=== PATIENT | female | born 1980 | race Hispanic/Latino ===

== ENCOUNTER 2019-01-30 13:03 | Inpatient (IN) | payer BC ==
[~2019-01-30] VITALS: Ht 152.4 cm; Wt 91.3 kg
--- OUTSIDE RECORDS SUMMARY | 2019-01-30 13:06 | XMS REPORT | Summary of Care ---
Author Author [facility] Organization [facility] Address Unknown Phone Unavailable Encounter HANNA Ugalde(ALISHA) [id number] Date(s): 09/13/18 - 09/13/18 [facility] [address] [place] [address]- Discharge Disposition: [facility] Left B4 Treatment Cmplt-MSE Cmplt Attending Physician: Rajesh Carbajal MD Vital Signs Most recent to 1 oldest [Reference Range]: Height 149.86 cm (09/13/18 9:37 PM) Temperature Oral 97.9 DegF [96.4-99.1 DegF] (09/13/18 9:37 PM) Blood Pressure 127/55 mmHg [90-140/60-90 mmHg] (09/13/18 9:37 PM) Respiratory Rate 14 BRMIN [14-20 BRMIN] (09/13/18 9:37 PM) Peripheral Pulse 79 bpm Rate [60-100 bpm] (09/13/18 9:37 PM) Weight 86.364 kg (09/13/18 9:37 PM) Body Mass Index 38.46 m2 (09/13/18 9:37 PM) Problem List Condition Effective Dates Status Health Status Informant Anxiety(Confirmed) Active Diabetes mellitus Active type 2(Confirmed) Allergies, Adverse Reactions, Alerts Substance Reaction Severity Status NKDA Active Medications No data available for this section Results No data available for this section Immunizations Given and Recorded Vaccine Date Status Refusal Reason diphtheria/pertussis, acel/tetanus adult 09/25/15 Given Procedures Procedure Date Related Diagnosis Body Site Status section Completed Social History Social History Type Response Alcohol Current, Type Beer. Frequency: 1-2 times per week. Previous treatment: None. Smoking Status Current some day smoker; Type: Cigarettes; Exposure to Tobacco Smoke None; Cigarette Smoking Last 365 Days Yes; Reg Smoking Cessation Counseling No; Tobacco use per day: 3; entered on: 07/17/16 Assessment and Plan No data available for this section
--- OUTSIDE RECORDS SUMMARY | 2019-01-30 13:06 | XMS REPORT | Summary of Care ---
Author Author [facility] Organization [facility] Address Unknown Phone Unavailable Encounter [facility] [employer](FIN) [id number] Date(s): 09/12/18 - 09/12/18 [facility] [address] [place] [address]- [phone] Discharge Disposition: Home or Self Care Attending Physician: Christie Urena MD Vital Signs No data available for this section Problem List Condition Effective Dates Status Health [...]
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
--- OUTSIDE RECORDS SUMMARY | 2019-01-30 13:07 | XMS REPORT | Summary of Care ---
Author Author [facility] Organization [facility] Address Unknown Phone Unavailable Encounter HANNA Ugalde(ALISHA) [id number] Date(s): 11/20/16 - 11/20/16 [facility] [address] [place] [address]- Discharge Disposition: Non-Emergent Attending Physician: Rajesh Carbajal MD Vital Signs Most recent to 1 oldest [Reference Range]: Temperature Oral 98.2 DegF [96.4-99.1 DegF] (11/20/16 4:47 PM) Blood Pressure 123/82 mmHg [90-140/60-90 mmHg] (11/20/16 4:47 PM) Respiratory Rate 18 BRMIN [14-20 BRMIN] (11/20/16 4:47 PM) Peripheral Pulse 98 bpm Rate [60-100 bpm] (11/20/16 4:47 PM) Problem List Condition Effective Dates Status Health Status Informant Anxiety(Confirmed) Active Diabetes mellitus Active type 2(Confirmed) Allergies, Adverse Reactions, Alerts Substance Reaction Severity Status NKDA Active Medications No data available for this section Results No data available for this section Immunizations Given and Recorded Vaccine Date Status Refusal Reason diphtheria/pertussis, acel/tetanus adult 09/25/15 Given Procedures Procedure Date Related Diagnosis Body Site section Social History Social History Type Response Alcohol Current, Type Beer. Frequency: 1-2 times per week. Previous treatment: None. Smoking Status Current some day smoker; Type: Cigarettes; Tobacco use per day: 3; Exposure to Tobacco Smoke None; Cigarette Smoking Last 365 Days Yes; Reg Smoking Cessation Counseling No Assessment and Plan No data available for this section
--- OUTSIDE RECORDS SUMMARY | 2019-01-30 13:07 | XMS REPORT | Summary of Care ---
Author Author [facility] Organization [facility] Address Unknown Phone Unavailable Encounter HANNA Ugalde(ALISHA) [id number] Date(s): 03/22/16 - 03/23/16 [facility] [address] [place] [address]- [phone] Discharge Diagnosis: Abdominal pain Discharge Diagnosis: Pneumonia Discharge Disposition: Home or Self Care Attending Physician: Yaz Sifuentes DO Vital Signs 1 2 3 Most recent to oldest [Reference Range]: 167.64 cm (03/22/16 9:32 PM) Height 98.5 DegF (03/23/16 2:00 AM) 98.7 DegF (03/22/16 9:32 PM) Temperature Oral [96.4-99.1 DegF] 135/86 mmHg (03/23/16 2:00 AM) 138/92 mmHg (03/22/16 9:32 PM) Blood Pressure [90-140/60-90 mmHg] 115 mmHg (03/22/16 10:25 PM) Systolic Blood Pressure [90-140 mmHg] 74 mmHg (03/22/16 10:25 PM) Diastolic Blood Pressure [60-90 mmHg] 18 BRMIN (03/23/16 2:00 AM) 19 BRMIN (03/22/16 10:25 PM) 20 BRMIN (03/22/16 9:32 PM) Respiratory Rate [14-20 BRMIN] 90 bpm (03/23/16 2:00 AM) 88 bpm (03/22/16 10:25 PM) 90 bpm (03/22/16 9:32 PM) Peripheral Pulse Rate [60-100 bpm] 88.636 kg (03/22/16 9:32 PM) Weight 31.54 m2 (03/22/16 9:32 PM) Body Mass Index Problem List Condition Effective Dates Status Health Status Informant Anxiety(Confirmed) Active Diabetes mellitus Active type 2(Confirmed) Allergies, Adverse Reactions, Alerts Substance Reaction Severity Status NKDA Active Medications azithromycin 500 mg, Route: PO, Drug form: TAB, ONCE, Dosing Weight 88.636, kg, Start date: 0 03/23/16 2:22:00 CDT, Stop date: 03/23/16 2:22:00 CDT Start Date: 03/23/16 Stop Date: 03/23/16 Status: Completed azithromycin 250 mg oral tablet 250 mg=1 tab, PO, Daily, X 4 day, # 4 tab, 0 Refill(s) Start Date: 03/23/16 Stop Date: 03/27/16 Status: Ordered famotidine 20 mg, Route: IVP, ONCE, Dosing Weight 88.636, kg, Priority: STAT, Start date: 0 03/22/16 22:19:00 CDT, Stop date: 03/22/16 22:19:00 CDT Start Date: 03/22/16 Stop Date: 03/22/16 Status: Completed GI cocktail 30 mL, Route: PO, Dosing Weight 88.636, kg, ONCE, STAT, Start date: 03/23/16 1:1 9:00 CDT, Stop date: 03/23/16 1:19:00 CDT Start Date: 03/23/16 Stop Date: 03/23/16 Status: Completed metoclopramide 10 mg, Route: IVP, Drug form: INJ, ONCE, Dosing Weight 88.636, kg, Priority: STA T, Start date: 03/22/16 22:49:00 CDT, Stop date: 03/22/16 22:49:00 CDT Start Date: 03/22/16 Stop Date: 03/22/16 Status: Completed ondansetron 4 mg, Route: IVP, Drug form: INJ, ONCE, Dosing Weight 88.636, kg, Priority: STAT , Start date: 03/22/16 22:19:00 CDT, Stop date: 03/22/16 22:19:00 CDT Start Date: 03/22/16 Stop Date: 03/22/16 Status: Completed Sodium Chloride 0.9% (Bolus) IV 1,000 mL, 2,000 ml/hr, Infuse Over: 30 minutes, Route: IV, ONCE, Priority: STAT, Dosing Weight 88.636 kg, Start date: 03/22/16 22:19:00 CDT, Duration: 1 doses or times, Stop date: 03/22/16 22:19:00 CDT Start Date: 03/22/16 Stop Date: 03/22/16 Status: Completed Zofran ODT 4 mg oral tablet, disintegrating 4 mg=1 tab, PO, TID, PRN as needed for nausea/vomiting, Dissolve tab under tongu e, X 2 day, # 6 tab, 0 Refill(s) Start Date: 03/23/16 Stop Date: 03/25/16 Status: Completed Results ELECTROLYTES Most recent to 1 oldest [Reference Range]: Sodium Lvl [135-145 132 mEq/L mEq/L] *LOW* (03/22/16 10:14 PM) Potassium Lvl 3.7 mEq/L [3.5-5.1 mEq/L] (03/22/16 10:14 PM) Chloride Lvl [95-109 97 mEq/L mEq/L] (03/22/16 10:14 PM) CO2 [24-32 mEq/L] 27 mEq/L (03/22/16 10:14 PM) AGAP [10.0-20.0 11.7 mEq/L mEq/L] (03/22/16 10:14 PM) CHEM PANEL Most recent to 1 oldest [Reference Range]: Creatinine Lvl 0.65 mg/dL [0.50-1.40 mg/dL] (03/22/16 10:14 PM) eGFR 116 mL/min/1.73m2 1 *NA* (03/22/16 10:14 PM) BUN [7-22 mg/dL] 14 mg/dL (03/22/16 10:14 PM) B/C Ratio [6-25] 22 (03/22/16 10:14 PM) Glucose Lvl [70-99 275 mg/dL mg/dL] *HI* (03/22/16 10:14 PM) Total Protein 8.4 g/dL [6.4-8.4 g/dL] (03/22/16 10:14 PM) Albumin Lvl [3.5-5.0 3.4 g/dL g/dL] *LOW* (03/22/16 10:14 PM) Globulin [2.7-4.2 5.0 g/dL g/dL] *HI* (03/22/16 10:14 PM) A/G Ratio [0.7-1.6] 0.7 (03/22/16 10:14 PM) Calcium Lvl 8.7 mg/dL [8.5-10.5 mg/dL] (03/22/16 10:14 PM) ALT [0-65 unit/L] 79 unit/L *HI* (03/22/16 10:14 PM) AST [0-37 unit/L] 80 unit/L *HI* (03/22/16 10:14 PM) Alk Phos [39-136 118 unit/L unit/L] (03/22/16 10:14 PM) Bili Total [0.2-1.3 0.9 mg/dL mg/dL] (03/22/16 10:14 PM) Lipase Lvl [73-393 185 unit/L unit/L] (03/22/16 10:14 PM) 1Result Comment: The eGFR is calculated using the [...] from the National Kidney Disease Education Program ( NKDEP) which additionally recommends that when the eGFR is used in patients with extremes of body mass index for purposes of drug dosing, the eGFR should be mul tiplied by the estimated BMI. URINE CHEM Most recent to 1 oldest [Reference Range]: U Preg [Negative] Negative (03/23/16 12:43 AM) URINE AND STOOL Most recent to 1 oldest [Reference Range]: UA Turbidity [Clear] Clear (03/23/16 12:43 AM) UA Color [Yellow] Yellow *NA* (03/23/16 12:43 AM) UA pH [5.0-8.0] 5.0 (03/23/16 12:43 AM) UA Spec Grav 1.030 [<=1.030] (03/23/16 12:43 AM) UA Glucose [Negative 500 mg/dL mg/dL] *ABN* (03/23/16 12:43 AM) UA Blood [Negative] Small *ABN* (03/23/16 12:43 AM) UA Ketones [Negative 20 mg/dL mg/dL] *ABN* (03/23/16 12:43 AM) UA Protein [Negative 100 mg/dL mg/dL] *ABN* (03/23/16 12:43 AM) UA Urobilinogen 2.0 mg/dL [0.1-1.0 mg/dL] *HI* (03/23/16 12:43 AM) UA Bili [Negative] Negative *NA* (03/23/16 12:43 AM) UA Leuk Est Negative [Negative] (03/23/16 12:43 AM) UA Nitrite Negative [Negative] (03/23/16 12:43 AM) UA WBC [0-5 /HPF] 2 /HPF (03/23/16 12:43 AM) UA RBC [0-2 /HPF] 6 /HPF *HI* (03/23/16 12:43 AM) UA Bacteria [None Occasional /HPF Seen /HPF] *NA* (03/23/16 12:43 AM) UA Sq Epi [Few /LPF] Few /LPF *NA* (03/23/16 12:43 AM) UA Mucus [None Seen Few /LPF /LPF] *NA* (03/23/16 12:43 AM) HEMATOLOGY Most recent to 1 oldest [Reference Range]: WBC [3.7-10.4 K/CMM] 6.2 K/CMM (03/22/16 10:14 PM) RBC [4.20-5.40 4.35 M/CMM M/CMM] (03/22/16 10:14 PM) Hgb [12.0-16.0 g/dL] 13.9 g/dL (03/22/16 10:14 PM) Hct [36.0-48.0 %] 40.3 % (03/22/16 10:14 PM) MCV [80.0-98.0 fL] 92.8 fL (03/22/16 10:14 PM) MCH [27.0-31.0 pg] 31.9 pg *HI* (03/22/16 10:14 PM) MCHC [32.0-36.0 34.4 g/dL g/dL] (03/22/16 10:14 PM) RDW [11.5-14.5 %] 12.9 % (03/22/16 10:14 PM) Platelet [133-450 160 K/CMM K/CMM] (03/22/16 10:14 PM) MPV [7.4-10.4 fL] 9.5 fL (03/22/16 10:14 PM) Segs [45.0-75.0 %] 55.4 % (03/22/16 10:14 PM) Lymphocytes 33.8 % [20.0-40.0 %] (03/22/16 10:14 PM) Monocytes [2.0-12.0 8.4 % %] (03/22/16 10:14 PM) Eosinophils [0.0-4.0 1.6 % %] (03/22/16 10:14 PM) Basophils [0.0-1.0 0.8 % %] (03/22/16 10:14 PM) Segs-Bands # 3.5 K/CMM [1.5-8.1 K/CMM] (03/22/16 10:14 PM) Lymphocytes # 2.1 K/CMM [1.0-5.5 K/CMM] (03/22/16 10:14 PM) Monocytes # [0.0-0.8 0.5 K/CMM K/CMM] (03/22/16 10:14 PM) Eosinophils # 0.1 K/CMM [0.0-0.5 K/CMM] (03/22/16 10:14 PM) Basophils # [0.0-0.2 0.1 K/CMM K/CMM] (03/22/16 10:14 PM) Immunizations Given and Recorded Vaccine Date Status [...]
--- OUTSIDE RECORDS SUMMARY | 2019-01-30 13:07 | XMS REPORT | Summary of Care ---
Author Author [facility] Organization [facility] Address Unknown Phone Unavailable Encounter HQ Aftab(ALISHA) [id number] Date(s): 09/25/15 - 09/25/15 [facility] [address] [place] [address]- [phone] Discharge Diagnosis: Contusion of other part of head, initial encounter Discharge Diagnosis: Unspecified injury of head, initial encounter Discharge Disposition: Home Attending Physician: Mateusz Saini DO Vital Signs 1 2 3 Most recent to oldest [Reference Range]: 149.86 cm (09/25/15 1:20 AM) Height 98.0 DegF (09/25/15 7:04 AM) 98.5 DegF (09/25/15 3:05 AM) 98.5 DegF (09/25/15 1:20 AM) Temperature Oral [96.4-99.1 DegF] 93/56 mmHg (09/25/15 7:04 AM) 99/58 mmHg (09/25/15 5:46 AM) 115/69 mmHg (09/25/15 3:05 AM) Blood Pressure [90-140/60-90 mmHg] 17 BRMIN (09/25/15 7:04 AM) 17 BRMIN (09/25/15 5:46 AM) 17 BRMIN (09/25/15 3:05 AM) Respiratory Rate [14-20 BRMIN] 81 bpm (09/25/15 7:04 AM) 91 bpm (09/25/15 5:46 AM) 97 bpm (09/25/15 3:05 AM) Peripheral Pulse Rate [60-100 bpm] 95.455 kg (09/25/15 1:20 AM) Weight 42.5 m2 (09/25/15 1:20 AM) Body Mass Index Problem List Condition Effective Dates Status Health Status Informant Anxiety(Confirmed) Active Diabetes mellitus Active type 2(Confirmed) Allergies, Adverse Reactions, Alerts Substance Reaction Severity Status NKDA Active Medications acetaminophen 650 mg, Route: PO, Drug form: TAB, ONCE, Dosing Weight 95.455, kg, Priority: STA T, Start date: 09/25/15 3:19:00, Stop date: 09/25/15 3:19:00 Start Date: 09/25/15 Stop Date: 09/25/15 Status: Completed diazepam 5 mg, Route: PO, ONCE, Dosing Weight 95.455, kg, Priority: STAT, Start date: 12/05 3:19:00, Stop date: 09/25/15 3:19:00 Start Date: 09/25/15 Stop Date: 09/25/15 Status: Completed Saline Flush 0.9% 10 mL, Route: IVP, Drug Form: INJ, Dosing Weight 95.455, kg, PRN, PRN Line Flush , Start date: 09/25/15 2:56:00, Duration: 30 day, Stop date: 10/25/15 3:55:00 Notes: (Same as: BD Posiflush) Start Date: 09/25/15 Stop Date: 09/25/15 Status: Discontinued tramadol 50 mg oral tablet 50 mg=1 tab, PO, Q6H, PRN Pain, X 3 day, # 12 tab, 0 Refill(s) Start Date: 09/25/15 Stop Date: 09/28/15 Status: Ordered Results No data available for this section Immunizations Vaccine Date Refusal Reason diphtheria/pertussis, acel/tetanus adult 09/25/15 Procedures Procedure Date Related Diagnosis Body Site [...]
--- OUTSIDE RECORDS SUMMARY | 2019-01-30 13:07 | XMS REPORT ---
Author Author Christie Urena [facility] eClinicalWorks Address Unknown Phone Unavailable Care Team Providers Care Complaint Clerk Name Role Phone Christie Urena CP Unavailable Allergies, Adverse Reactions, Alerts Substance Reaction Event Type N.K.D.A. Info Not Available Non Drug Allergy Problems Problem Type Condition Code Onset Dates Condition Status Assessment Anxiety F41.9 Active Assessment Uncontrolled type 2 diabetes mellitus without complication, without long-term current use of insulin E11.65 Active Problem Vitamin D deficiency E55.9 Active Problem Hyperlipidemia, unspecified hyperlipidemia type E78.5 Active Problem HTN (hypertension), benign I10 Active Problem Anxiety F41.9 Active Problem Uncontrolled type 2 diabetes mellitus without complication, without long- term current use of insulin E11.65 Active Problem Panic attacks F41.0 Active Medications Medication Code System Code Instructions Start Date End Date Status Dosage Jkrrn-2-zmox Ethyl Esters & D3 [facility] [address]-86 1 & 1000 GM & UNIT Orally BID Mar 06, 2018 December 01, 2018 Active as directed Tylenol ND 44847262243 325 MG Orally as needed (prn) Active 2 tablets Klonopin [facility] 08355646317 0.5 MG Orally twice a day (bid) as needed (prn) Feb 21, 2018 Active 1 tablet Venlafaxine HCl [facility] 83283272205 37.5 MG Orally Once a day Aug 15, 2018 Active 1 tablet at bedtime for 7 days; on day 8 take two tablets Levothyroxine Sodium ND 80179816121 50 MCG Orally Once a day Active 1 tablet on an empty stomach in the morning Pioglitazone HCl ND 18222976542 30 mg Orally Once a day Feb 27, 2018 Active 1 tablet Metformin HCl ND 48026352395 1000 MG Orally Twice a day Feb 21, 2018 Active 1 tablet with meals BusPIRone HCl ND 66294368996 7.5 MG Orally Twice a day Feb 21, 2018 Aug 15, 2018 Active 1 tablet Vital Signs Date/Time: Aug 15, 2018 BMI 35.21 Index Weight 188.8 lbs Height 61.4 in Temperature 97.1 F Cardiac Monitoring Heart Rate 89 /min Blood Pressure Diastolic 101 mm Hg Blood Pressure Systolic 143 mm Hg Results No Known Results Summary Purpose eClinicalWorks Submission
--- OUTSIDE RECORDS SUMMARY | 2019-01-30 13:07 | XMS REPORT | Summary of Care ---
Author Author [facility] Organization [facility] Address Unknown Phone Unavailable Encounter HANNA Ugalde(ALISHA) [id number] Date(s): 07/17/16 - 07/17/16 [facility] [address] [place] [address]- Discharge Diagnosis: Anxiety Discharge Disposition: Home or Self Care Attending Physician: Kranthi Sims MD Vital Signs Most recent to 1 2 oldest [Reference Range]: Height 149.86 cm (07/17/16 11:42 AM) Temperature Oral 98.0 DegF [96.4-99.1 DegF] (07/17/16 2:24 PM) Blood Pressure 138/62 mmHg 147/89 mmHg [90-140/60-90 mmHg] (07/17/16 2:24 PM) *HI* (07/17/16 11:42 AM) Respiratory Rate 18 BRMIN 22 BRMIN [14-20 BRMIN] (07/17/16 2:24 PM) *HI* (07/17/16 11:42 AM) Peripheral Pulse 84 bpm 86 bpm Rate [60-100 bpm] (07/17/16 2:24 PM) (07/17/16 11:42 AM) Weight 86.364 kg (07/17/16 11:42 AM) Body Mass Index 38.46 m2 (07/17/16 11:42 AM) Problem List Condition Effective Dates Status Health Status Informant Anxiety(Confirmed) Active Diabetes mellitus Active type 2(Confirmed) Allergies, Adverse Reactions, Alerts Substance Reaction Severity Status NKDA Active Medications Xanax 0.5 mg oral tablet 0.5 mg, Route: PO, Drug form: TAB, ONCE, Dosing Weight 86.364, kg, Priority: STA T, Start date: 07/17/16 13:35:00 ADMITTED ATTORNEYS, Stop date: 07/17/16 13:35:00 ADMITTED ATTORNEYS Start Date: 07/17/16 Stop Date: 07/17/16 Status: Completed Results No data available for this section [...]
--- OUTSIDE RECORDS SUMMARY | 2019-01-30 13:08 | XMS REPORT ---
Author Author Christie Urena Organization [employer] Address Unknown Phone Unavailable Care Team Providers Care Batch Freezer Operator Name Role Phone Christie Urena CP Unavailable Allergies No Known Allergies Problems Problem Type Condition Code Onset Dates Condition Status Problem Panic attacks F41.0 Active Problem Uncontrolled type 2 diabetes mellitus without complication, without long- term current use of insulin E11.65 Active Problem Anxiety F41.9 Active Assessment Uncontrolled type 2 diabetes mellitus without complication, without long-term current use of insulin E11.65 Active Medications Medication Code System Code Instructions Start Date End Date Status Dosage Levothyroxine Sodium [facility] 45321947537 50 MCG Orally Once a day Feb 27, 2018 Active 1 tablet on an empty stomach in the morning Pioglitazone HCl [facility] 33334468277 30 mg Orally Once a day Feb 27, 2018 Active 1 tablet Metformin HCl [facility] 01584464707 1000 MG Orally Twice a day Feb 21, 2018 Active 1 tablet with meals Ergocalciferol [facility] 04937915400 [address] UNIT Orally once a week Feb 27, 2018 May 28, 2018 Active 1 capsule Results No Known Results Summary Purpose eClinicalWorks Submission
--- OUTSIDE RECORDS SUMMARY | 2019-01-30 13:08 | XMS REPORT ---
Author Author Christie Urena [facility] e[employer] Address Unknown Phone Unavailable Care Team Providers Care Voice Over Artist Name Role Phone Christie Urena CP Unavailable Allergies, Adverse Reactions, Alerts Substance Reaction Event Type Lisinopril vomiting Drug Allergy Problems Problem Type Condition Code Onset Dates Condition Status Assessment Uncontrolled type 2 diabetes mellitus without complication, without long-term current use of insulin E11.65 Active Assessment HTN (hypertension), benign I10 Active Assessment Hyperlipidemia, unspecified hyperlipidemia type E78.5 Active Problem Vitamin D deficiency E55.9 Active Problem Hyperlipidemia, unspecified hyperlipidemia type E78.5 Active Problem HTN (hypertension), benign I10 Active Problem Anxiety F41.9 Active Problem Uncontrolled type 2 diabetes mellitus without complication, without long- term current use of insulin E11.65 Active Problem Panic attacks F41.0 Active Medications Medication Code System Code Instructions Start Date End Date Status Dosage Felha-5-yhlp Ethyl Esters & D3 [facility] [address]-10 1 & 1000 GM & UNIT Orally BID Mar 06, 2018 December 01, 2018 Active as directed Tylenol ND 84306802548 325 MG Orally as needed (prn) Active 2 tablets Pioglitazone HCl ND 98845717615 45 MG Orally Once a day Sep 12, 2018 Active 1 tablet Klonopin ND 69259531352 0.5 MG Orally twice a day (bid) as needed (prn) Feb 21, [address] [facility] 58411702746 25 MG Orally Once a day September 25, 2018 November 24, 2018 Active 1 tablet Losartan Potassium ND 75665914933 25 MG Orally Once a day September 25, 2018 Active 1 tablet Levothyroxine Sodium ND 36074504056 50 MCG Orally Once a day Active 1 tablet on an empty stomach in the morning Venlafaxine HCl [facility] 12788665287 37.5 MG Orally Once a day Aug 15, 2018 Active 1 tablet at bedtime for 7 days; on day 8 take two tablets Metformin HCl ND 45049855266 1000 MG Orally Twice a day Feb 21, 2018 September 20, 2018 Active 1 tablet with meals Lisinopril [facility] 60542635758 10 mg Orally Once a day Sep 12, 2018 September 23, 2018 Active 1 tablet Vital Signs Date/Time: September 25, 2018 BMI 35.24 Index Weight 189.0 lbs Height 61.4 in Temperature 97.1 F Cardiac Monitoring Heart Rate 84 /min Blood Pressure Diastolic 94 mm Hg Blood Pressure Systolic 138 mm Hg Results No Known Results Summary Purpose eClinicalWorks Submission
--- OUTSIDE RECORDS SUMMARY | 2019-01-30 13:08 | XMS REPORT ---
Author Author Christie Urena Organization [employer] Address Unknown Phone Unavailable Care Team Providers Care Atmospheric Chemist Name Role Phone Christie Urena Unavailable Allergies No Known Allergies Problems Problem Type Condition Code Onset Dates Condition Status Problem Vitamin D deficiency E55.9 Active Problem Hyperlipidemia, unspecified hyperlipidemia type E78.5 Active Problem HTN (hypertension), benign I10 Active Problem Anxiety F41.9 Active Problem Uncontrolled type 2 diabetes mellitus without complication, without long- term current use of insulin E11.65 Active Problem Panic attacks F41.0 Active Medications Medication Code System Code Instructions Start Date End Date Status Dosage Clonazepam [facility] 71686572119 0.5 MG Orally twice a day (bid) November 04, 2018 Active 1 tablet Clonazepam [facility] 93677633314 0.5 by mouth twice a day (bid) Active TAKE 1 TABLET BY MOUTH TWICE DAILY NEEDED Results No Known Results Summary Purpose eClinicalWorks Submission
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
[2019-01-30 14:32] LABS: BILIRUBIN,URINE NEGATIVE (NEGATIVE); CLARITY,URINE CLOUDY (CLEAR); KETONES,URINE NEGATIVE (NEGATIVE); LEUKOCYTE ESTERASE ,URINE NEGATIVE (NEGATIVE); NITRITE,URINE NEGATIVE (NEGATIVE); PROTEIN,URINE DIPSTICK 2+ (NEGATIVE); URINE UROBILINOGEN 1 mg/dL (0.2 - 1)
[2019-01-30 14:33] LABS: COLOR,URINE STRAW (YELLOW)
[2019-01-30 14:40] LABS: BASOPHILS % 0.3 % (0.0-1.0); EOSINOPHILS # (AUTO) 0.1 (0.0-0.4); EOSINOPHILS % 1.5 % (0.0-6.0); HEMATOCRIT 26.2 % (34.2-44.1); HEMOGLOBIN 9.4 g/dL (12.0-16.0); LYMPHOCYTES # (AUTO) 1.2 (1.0-3.2); LYMPHOCYTES % 34.7 % (18.0-39.1); MEAN CORPUSCULAR HEMOGLOBIN 34.3 pg (28-32); MEAN CORPUSCULAR HGB CONC 35.9 g/dL (31-35); MEAN CORPUSCULAR VOLUME 95.6 fL (81-99); MONOCYTES # (AUTO) 0.3 (0.2-0.8); MONOCYTES % 7.9 % (4.4-11.3); NEUTROPHILS # (AUTO) 1.8 (2.1-6.9); NEUTROPHILS % 55.3 % (38.7-80.0); PLATELET COUNT 118 x10e3/uL (140-360); RED BLOOD COUNT 2.74 x10e6/uL (3.6-5.1)
[2019-01-30 14:42] LABS: INR 0.97; PROTHROMBIN TIME 13.4 seconds (11.9-14.5)
[2019-01-30 14:43] LABS: PARTIAL THROMBOPLASTIN TIME 30.6 seconds (23.8-35.5)
[2019-01-30 14:44] LABS: BACTERIA,URINE MANY /HPF; WBC,URINE (MAN) 0-5 /HPF (0-5)
[2019-01-30 14:53] LABS: ALANINE AMINOTRANSFERASE 51 IU/L (0-55); ALBUMIN 1.9 g/dL (3.5-5.0); ALBUMIN/GLOBULIN RATIO 0.5 (0.8-2.0); ALKALINE PHOSPHATASE 157 IU/L (40-150); ANION GAP 13.4 mmol/L (8-16); BLOOD UREA NITROGEN 9 mg/dL (7-26); BUN/CREATININE RATIO 10 (6-25); CALCIUM 8.4 mg/dL (8.4-10.2); CARBON DIOXIDE 26 mmol/L (22-29); CHLORIDE 100 mmol/L (98-107); CREATINE KINASE 1030 IU/L (29-168); CREATININE, SERUM 0.86 mg/dL (0.57-1.11); EST GLOMERULAR FILTRATION RATE > 60 ML/MIN (60-); GLUCOSE 335 mg/dL (74-118); MAGNESIUM 1.4 MG/DL (1.3-2.1); POTASSIUM 3.4 mmol/L (3.5-5.1); SODIUM 136 mmol/L (136-145)
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
[2019-01-30] MEDS ORDERED: SODIUM CHLORIDE 0.9% 1000ML 1,000 ML IV SCH (16:15)
[2019-01-30] MEDS ORDERED: DEXTROSE 50% SYRINGE 50 ML IV PRN (17:30)
[2019-01-30 17:34] LABS: AMPHETAMINES SCREEN,URINE NEGATIVE (NEGATIVE); BENZODIAZEPINES SCREEN,URINE NEGATIVE (NEGATIVE); PHENCYCLIDINE SCREEN,URINE NEGATIVE (NEGATIVE)
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
[2019-01-30] MEDS ORDERED: ONDANSETRON HCL INJ 2MG/ML 2ML 2 MG/ML VIAL IV PRN (21:00)
[2019-01-30] MEDS: CEFTRIAXONE SOD 1 GM/NS 50 ML 50 ML IV SCH (22:26)
[2019-01-30] MEDS: SODIUM CHLORIDE 0.9% 1000ML 1,000 ML IV SCH (22:28)
--- NOTE | 2019-01-30 22:40 | NUR ---
SPOKE WITH DR. MIMS CONCERNING ELEVATED GLUCOSE OF 389, RECEVIED ORDERS FOR LANTUS 10 UNITS SQ QHS AND TO GIVE 12 UNITS OF LISPRO SQ NOW AT THIS TIME.
[2019-01-30] MEDS: INSULIN GLARGINE 100 UNITS/ML VIAL SQ SCH (23:00)
[2019-01-30] MEDS: INSULIN LISPRO 100 UNIT/1 ML 3ML VIAL SQ SCH (23:00)
--- NOTE | 2019-01-30 23:00 | NUR ---
Received report from ER nurse. Patient arrived to floor via stretcher.
[2019-01-30 23:30] VITALS: BP 93/52
[2019-01-31] VITALS (8 sets, daily range): BP systolic 102–161; BP diastolic 54–95
--- NOTE | 2019-01-31 01:00 | NUR ---
Patient c/o leg and foot pain. Given meds as ordered by MD. Will assess pain management and f/u on pain relief.
--- NOTE | 2019-01-31 02:30 | NUR ---
Patient resting quitly with no c/o at this time. Continue monitor.
[2019-01-31] MEDS ORDERED: LEVOTHYROXINE50 MCG PO (03:53)
[2019-01-31] MEDS ORDERED: METFORMIN HCL1000 MG PO (03:53)
[2019-01-31] MEDS ORDERED: PIOGLITAZONE HC45 MG PO (03:53)
[2019-01-31] MEDS ORDERED: LOSARTAN POTASS25 MG PO (03:53)
[2019-01-31] MEDS ORDERED: CLONAZEPAM0.5 MG PO (03:53)
[2019-01-31] MEDS ORDERED: BUSPIRONE HCL7.5 MG PO (03:53)
[2019-01-31] MEDS ORDERED: LISINOPRIL10 MG PO (03:53)
[2019-01-31] MEDS ORDERED: VENLAFAXINE H37.5 MG PO (03:53)
[2019-01-31] MEDS: ACETAMINOPHEN 325 MG TAB PO PRN ×2 (05:19→21:49)
--- NOTE | 2019-01-31 06:48 | NUR ---
Spouse at bedside. Patient resting quitly.
[2019-01-31 07:10] LABS: BASOPHILS % 0.6 % (0.0-1.0); EOSINOPHILS # (AUTO) 0.1 (0.0-0.4); EOSINOPHILS % 2.2 % (0.0-6.0); HEMOGLOBIN 9.1 g/dL (12.0-16.0); MEAN CORPUSCULAR HEMOGLOBIN 34.2 pg (28-32); MEAN CORPUSCULAR VOLUME 97.7 fL (81-99); MONOCYTES # (AUTO) 0.3 (0.2-0.8); MONOCYTES % 9.8 % (4.4-11.3); NEUTROPHILS # (AUTO) 1.8 (2.1-6.9); NEUTROPHILS % 56.8 % (38.7-80.0); PLATELET COUNT 116 x10e3/uL (140-360); RED BLOOD COUNT 2.66 x10e6/uL (3.6-5.1); RED CELL DISTRIBUTION WIDTH 13.2 % (11.7-14.4)
[2019-01-31 07:13] LABS: ALANINE AMINOTRANSFERASE 46 IU/L (0-55); ALBUMIN 1.7 g/dL (3.5-5.0); ALBUMIN/GLOBULIN RATIO 0.5 (0.8-2.0); ALKALINE PHOSPHATASE 141 IU/L (40-150); ANION GAP 9.5 mmol/L (8-16); BLOOD UREA NITROGEN 11 mg/dL (7-26); BUN/CREATININE RATIO 14 (6-25); CALCIUM 7.7 mg/dL (8.4-10.2); CARBON DIOXIDE 27 mmol/L (22-29); CHLORIDE 106 mmol/L (98-107); CREATININE, SERUM 0.79 mg/dL (0.57-1.11); EST GLOMERULAR FILTRATION RATE > 60 ML/MIN (60-); GLUCOSE 301 mg/dL (74-118); POTASSIUM 3.5 mmol/L (3.5-5.1); SODIUM 139 mmol/L (136-145)
--- NOTE | 2019-01-31 07:21 | NUR ---
PATIENT IN BED RESTING WITH NO S/S OF DISTRESS. IV FLUID INFUSING ORDERED. ABDOMEN SOFT AND LARGE WITH SOME BRUISES, EDEMA TO LOWER EXTREMITIES. BED IN LOWER POSITION, CALL LIGHT AT REACH.
[2019-01-31] MEDS: INSULIN LISPRO 100 UNIT/1 ML 3ML VIAL SQ SCH ×4 (07:30→21:41)
[2019-01-31] MEDS: SODIUM CHLORIDE 0.9% 1000ML 1,000 ML IV SCH (08:48)
--- NOTE | 2019-01-31 11:35 | NUR ---
PATIENT AMBULATED TO THE RESTROOM AND BACK TO BED. REQUESTED AND RECEIVED AN EXTRA PILLOW. IN BED WITH CALL LIGHT AT REACH.
--- NOTE | 2019-01-31 15:48 | NUR ---
PATIENT IN BED RESTING WITH EYES CLOSED, NO DISTRESS NOTED. CALL LIGHT AT REACH.
[2019-01-31] MEDS: CEFTRIAXONE SOD 1 GM/NS 50 ML 50 ML IV SCH (21:36)
[2019-01-31] MEDS: FUROSEMIDE INJ 10 MG/ML 4 ML VIAL IV SCH (21:36)
[2019-01-31] MEDS: INSULIN GLARGINE 100 UNITS/ML VIAL SQ SCH (21:37)
--- NOTE | 2019-01-31 23:05 | NUR ---
Patient stated she don't want anybody to come to her room until during waking hours. She refused bed alarm and states she goes to the bathroom often at night.
--- NOTE | 2019-02-01 00:56 | History and Physical ---
CHIEF COMPLAINT: Anasarca. HISTORY OF PRESENT ILLNESS: This is a 38-year-old female, morbidly obese with history of polysubstance abuse, chronic alcohol abuse, history of hypothyroidism, hypertension, type 2 diabetes, comes into the ED with complaints of anasarca and worsening abdominal distention ongoing for the last one week. The patient is a very poor historian when I discussed this case with her. She does report that she has been having worsening anasarca and lower extremity edema including abdominal distention over the last one week. Denies any recent sickness, cough, congestion, or any fever. Denies any shortness of breath, chest pain, palpitation, nausea, or vomiting. She also endorses having some petechiae, rash, and bruising. That has been ongoing for the last one week as well. She does report that she does do cocaine, of note her last snort was yesterday prior to coming to the hospital. She also endorses she drinks alcohol liquor 3 to 4 times per week. She was found to be pancytopenic positive for rhabdomyolysis as well. The patient was seen and evaluated at bedside on the medical floor. She is currently doing well with no other issues at this time. REVIEW OF SYSTEMS: Pertinent positive: Bruising, anasarca, abdominal distention, and GERD. Pertinent negatives: Denies any chest pain, palpitation, nausea, vomiting, diarrhea, dysuria, hematuria, frequency, urgency, lightheadedness, dizziness, abdominal pain, headaches, shortness of breath, cough, congestion, fever, or any other complaints. The rest of the 14-point review of systems have been reviewed with the patient and are negative. ALLERGIES: NO KNOWN DRUG ALLERGIES. HOME MEDICATIONS: Lisinopril 10 mg daily, losartan 25 mg daily, Actos 45 mg daily, buspirone 7.5 mg p.o. b.i.d., venlafaxine 37.5 mg p.o. daily, levothyroxine 50 mcg daily, and Ativan 0.5 mg p.o. b.i.d. p.r.n. for agitation. PAST MEDICAL HISTORY: Depression, hypertension, hypothyroidism, chronic alcohol abuse, and drug abuse. PAST SURGICAL HISTORY: Reports none. FAMILY HISTORY: Hypertension and diabetes. SOCIAL HISTORY: Positive for cocaine, uses cocaine frequently. Positive for alcohol. Smoker. PHYSICAL EXAMINATION: VITAL SIGNS: Temperature is 96.7, pulse 76, respiratory rate is 18, blood pressure is 133/83, and pulse ox 98% on room air. GENERAL: Not in acute distress. Alert and oriented x3. Cooperative on examination. Has abdominal distention. Has lower extremity edema with anasarca. HEENT: Head is normocephalic and atraumatic. Eyes; pupils are equal, round, and reactive to light bilaterally. Extraocular movements intact bilaterally. Throat, no evidence of erythema or exudates in the posterior pharynx. Has poor dentition. NECK: Supple. Good range of motion. PULMONARY: Clear to auscultation bilaterally. No wheezing, rales, or rhonchi. No crackles appreciated. CARDIOVASCULAR: Positive S1, S2. No murmurs, rubs, or gallops appreciated. ABDOMEN: Soft, nondistended, and nontender to palpation. Bowel sounds present. MUSCULOSKELETAL: Strength is 5/5 throughout. No evidence of any muscle deficits on examination. No weakness appreciated. NEUROLOGICAL: Cranial nerves II through XII grossly intact. No evidence of neurological deficits on exam. SKIN: Intact. Warm to touch. Good cap refill. PSYCHIATRIC: Normal affect and mood. EXTREMITIES: No edema. Good range of motion throughout. LAB FINDINGS: Show white count of 3.1, hemoglobin 9.1, hematocrit is 26, and platelets of 160. Coagulation; PT 13, INR 0.97, PTT 30. Chemistry; sodium 139, potassium 3.5, chloride 106, bicarb 27, anion gap 9.5, BUN is 11, creatinine 0.79, glucose is 301, the last 1-hour 229, calcium 7.7, magnesium 1.4, total protein is 0.5, AST 111, ALT 46, total bilirubin is 0.5, alkaline phosphatase 141, ammonia level was 133. CK was 543. BNP was 44. Troponins were negative. Albumin was 1.7. Urinalysis shows cloudy urine, 2+ protein, 2+ glucose, 11-20 RBCs, many urinary bacteria. Urine drug screen positive for cocaine. MICROBIOLOGY: Urine culture positive for gram-negative rods and enterococcus. IMAGING STUDIES: Chest x-ray shows no acute cardiopulmonary abnormality. IMPRESSION: 1. Anasarca with underlying abdominal ascites with positive proteinuria. 2. Suspect liver cirrhosis due to alcohol abuse. 3. Type 2 diabetes. 4. Hypertension. 5. Hypothyroidism. 6. Rhabdomyolysis secondary to cocaine abuse, positive urine drug screen. 7. Pancytopenia. 8. Type 2 diabetes. 9. Polysubstance abuse. PLAN: We will go ahead and get a urine protein to creatinine ratio, microalbumin to creatinine ratio. I suspect there is more involvement in relation to the proteinuria leading to the anasarca and ascites. We will also get a GI consultation as well. Start on IV Lasix for the underlying abdominal distention and ascites. In relation to her type 2 diabetes, we will continue with insulin sliding scale, long-acting insulin, A1c will be ordered as well. Her blood pressure is stable, we will continue with same medications to monitor closely. We will also get a TSH level. Continue with levothyroxine. Her CK did improve this was all secondary to cocaine abuse. We will get a.m. CK level. Her pancytopenia seems to be from alcohol abuse, likely from liver cirrhosis if indicated, but we will go ahead and get a Hematology consultation. She does have petechiae for a while. Once again, I think that is from the thrombocytopenia as well as the cocaine leading to some possible vasculitis. We will go ahead and get a UA as well. In relation to her alcohol and drug abuse, I had a long discussion with her about cessation and she verbalized that she will try the best to quit. We will go ahead and put Lovenox for DVT prophylaxis. Otherwise, we will continue same plan of care. Consult with all the consultants to follow closely. MD BARBARA Vigil/ADDY /[id number]
[2019-02-01 05:04] VITALS: BP 92/51
[2019-02-01] MEDS: CLONAZEPAM 0.5 MG TAB PO PRN ×2 (05:08→10:58)
--- NOTE | 2019-02-01 05:09 | NUR ---
bp rechecked 150/94 mmhg, SC 79 b/min.
[2019-02-01] MEDS ORDERED: LEVOTHYROXINE SODIUM 50 MCG TAB PO SCH (06:00)
--- NOTE | 2019-02-01 07:00 | NUR ---
RCD PT AT BED PT IS ALERT AND ORIENTED PT RESTING ON BED NO SIGNS OF ANY DISTRESS NOTED IV PATENT FAMILY AT BED SIDE BED LOW AND LOCKED CALL LIGHT IN REACH
[2019-02-01 07:20] VITALS: BP 129/80
[2019-02-01] MEDS: INSULIN LISPRO 100 UNIT/1 ML 3ML VIAL SQ SCH ×3 (07:30→15:47)
[2019-02-01 07:39] LABS: BASOPHILS % 0.8 % (0.0-1.0); EOSINOPHILS # (AUTO) 0.1 (0.0-0.4); EOSINOPHILS % 1.6 % (0.0-6.0); HEMATOCRIT 27.3 % (34.2-44.1); HEMOGLOBIN 9.5 g/dL (12.0-16.0); LYMPHOCYTES # (AUTO) 1.1 (1.0-3.2); LYMPHOCYTES % 30.6 % (18.0-39.1); MEAN CORPUSCULAR HEMOGLOBIN 34.5 pg (28-32); MEAN CORPUSCULAR HGB CONC 34.8 g/dL (31-35); MEAN CORPUSCULAR VOLUME 99.3 fL (81-99); MONOCYTES # (AUTO) 0.3 (0.2-0.8); MONOCYTES % 7.7 % (4.4-11.3); NEUTROPHILS # (AUTO) 2.2 (2.1-6.9); NEUTROPHILS % 58.8 % (38.7-80.0); PLATELET COUNT 118 x10e3/uL (140-360); RED BLOOD COUNT 2.75 x10e6/uL (3.6-5.1); RED CELL DISTRIBUTION WIDTH 13.3 % (11.7-14.4)
[2019-02-01 07:54] LABS: ALANINE AMINOTRANSFERASE 51 IU/L (0-55); ALBUMIN 1.7 g/dL (3.5-5.0); ALBUMIN/GLOBULIN RATIO 0.5 (0.8-2.0); ALKALINE PHOSPHATASE 135 IU/L (40-150); ANION GAP 8.5 mmol/L (8-16); BLOOD UREA NITROGEN 13 mg/dL (7-26); BUN/CREATININE RATIO 16 (6-25); CALCIUM 7.4 mg/dL (8.4-10.2); CARBON DIOXIDE 27 mmol/L (22-29); CHLORIDE 105 mmol/L (98-107); CREATINE KINASE 288 IU/L (29-168); CREATININE, SERUM 0.79 mg/dL (0.57-1.11); EST GLOMERULAR FILTRATION RATE > 60 ML/MIN (60-); GLUCOSE 317 mg/dL (74-118); POTASSIUM 3.5 mmol/L (3.5-5.1); SODIUM 137 mmol/L (136-145)
[2019-02-01 07:57] LABS: MAGNESIUM 1.1 MG/DL (1.3-2.1)
--- NOTE | 2019-02-01 08:00 | NUR ---
PAGED DR MIMS AND NOTIFIED THE MAGNESIUM LEVEL
[2019-02-01 08:14] LABS: THYROID STIMULATING HORMONE 4.439 uIU/mL (0.350-4.940)
[2019-02-01 08:21] LABS: FERRITIN 70.38 ng/mL (4.63-204.00)
[2019-02-01] MEDS ORDERED: VENLAFAXINE HCL 37.5 MG TAB PO SCH (09:00)
[2019-02-01] MEDS ORDERED: PIOGLITAZONE HCL 45 MG TAB PO SCH (09:00)
[2019-02-01] MEDS ORDERED: NON-FORMULARY MEDICATION (Buspirone Hcl 7.5 MG) PO SCH (09:00)
[2019-02-01] MEDS: FUROSEMIDE INJ 10 MG/ML 4 ML VIAL IV SCH (09:00)
[2019-02-01] MEDS ORDERED: LOSARTAN POTASSIUM 25 MG TAB PO SCH (09:00)
[2019-02-01] MEDS ORDERED: LISINOPRIL 10 MG TAB PO SCH (09:00)
[2019-02-01] MEDS: ACETAMINOPHEN 325 MG TAB PO PRN (09:00)
[2019-02-01] MEDS: BUSPIRONE HCL 5 MG TAB PO SCH ×2 (09:00→16:44)
[2019-02-01] MEDS ORDERED: VENLAFAXINE HCL 37.5 MG PO SCH (09:00)
[2019-02-01 10:07] VITALS: BP 129/80
[2019-02-01 11:13] VITALS: BP 136/96
[2019-02-01 15:38] VITALS: BP 108/68
[2019-02-01] MEDS ORDERED: MAGNESIUM SULFATE 2GM/50ML 50 ML IV ONE (15:45)
[2019-02-01 15:51] LABS: BILIRUBIN,URINE NEGATIVE (NEGATIVE); CLARITY,URINE SL CLOUDY (CLEAR); COLOR,URINE YELLOW (YELLOW); KETONES,URINE NEGATIVE (NEGATIVE); LEUKOCYTE ESTERASE ,URINE NEGATIVE (NEGATIVE); NITRITE,URINE NEGATIVE (NEGATIVE); URINE UROBILINOGEN 0.2 mg/dL (0.2 - 1)
[2019-02-01 15:53] LABS: PROTEIN,URINE DIPSTICK 3+ (NEGATIVE)
[2019-02-01 16:03] LABS: BACTERIA,URINE FEW /HPF; EPITHELIAL CELLS,URINE FEW /LPF; WBC,URINE (MAN) 0-5 /HPF (0-5)
[2019-02-01 16:05] LABS: MUCUS,URINE FEW (RARE)
[2019-02-01 16:18] LABS: CREATININE,URINE RANDOM 135.63 mg/dL (47-110)
[2019-02-01 16:48] LABS: TOTAL PROTEIN, URINE 223.7 mg/dL (1-14)
[2019-02-01] MEDS ORDERED: ENOXAPARIN 30 MG/0.3 ML SYR SC SCH (17:00)
--- NOTE | 2019-02-01 17:24 | Progress Note ---
DATE: 02/01/2019 Medicine Progress Note SUBJECTIVE: The patient reports that she has been feeling weak today and tired. Her labs that are ordered have been still pending for today. No overnight events. PHYSICAL EXAMINATION: VITAL SIGNS: Temperature is 97.9, pulse 87, respiratory rate is 18, blood pressure is 136/96, and pulse ox 97% on room air. GENERAL: Not in acute distress. Alert and oriented x3. Cooperative on examination. HEENT: Head is normocephalic, atraumatic. Eyes; pupils are equal, round, and reactive to light bilaterally. Extraocular movements are intact bilaterally. NECK: Supple. Good range of motion throughout. No evidence of erythema or exudates in the posterior pharynx. Has poor dentition. PULMONARY: Clear to auscultation bilaterally. No wheezing, rales, or rhonchi. No crackles appreciated. CARDIOVASCULAR: Positive S1, S2. No murmurs, rubs, or gallops appreciated. ABDOMEN: Soft, nondistended, and nontender to palpation. Bowel sounds present. MUSCULOSKELETAL: Strength is 5/5 throughout. No evidence of any muscle deficits on examination. No weakness appreciated. NEUROLOGIC: Cranial nerves II through XII grossly intact. No evidence of any neurological deficits on exam. SKIN: Intact. Warm to touch. Good cap refill. PSYCHIATRIC: Normal affect and mood. EXTREMITIES: She has trace pedal edema in the ankle region bilaterally. LABORATORY FINDINGS: White count 3.6, hemoglobin 9.5, hematocrit is 27, and platelets of 118. ESR 75, reticulocyte percentage 4.7. Coagulation; PT 13, INR 0.97, and PTT 30. Chemistry; sodium was 137, potassium 3.5, chloride 105, bicarbonate 27, anion gap of 8.5, BUN was 13, creatinine was 0.79, and glucose was 317. Hemoglobin A1c 7.4, iron saturation 38%, and ferritin 70. Total bilirubin is 0.5, AST 115, ALT 51, and alkaline phosphatase 135. Ammonia level was 133. CK 288, albumin 1.7. Folate level pending. Vitamin B12 of 605. Microbiology shows urine culture positive for E coli and Enterococcus faecalis. IMPRESSION: 1. Anasarca, multifactorial with underlying abdominal ascites with positive proteinuria. 2. Suspected liver cirrhosis due to alcohol abuse. 3. Type 2 diabetes. 4. Hypertension. 5. Hypothyroidism. 6. Rhabdomyolysis secondary to cocaine abuse with positive urine drug screen. 7. Pancytopenia. 8. Polysubstance abuse. PLAN: At this time, continue with IV Lasix twice daily. Abdominal ultrasound is pending and will likely occur on Sunday. I discussed this with the patient. The urine [id number], [id number] were not collected. Discussed with nurse to collect today. If the patient has nephrotic range proteinuria, it will be very difficult for me to state that this is likely due to diabetes, though she is on control. She will likely need a renal biopsy to further assess this. I did mention this to her at bedside today and she seems to be okay at this time, but I will go ahead and await for the UPC and [id number] ratio to come in 1st performing my final assessment. In relation to her liver cirrhosis, ultrasound is pending and if she has evidence of ascites, I will go ahead and do a paracentesis. GI was involved as well. We will go ahead and get an ammonia level for the morning. Her hypertension was controlled. Her diabetes, this morning glucose was 149. We will continue with Lantus and premeal insulin. In relation to her rhabdomyolysis, CK is improving. We will get a.m. CK level. In relation to her pancytopenia, she is at baseline. Awaiting waiting for abdominal ultrasound, the evidence of cirrhosis which could affect the bone marrow as well. In relation to her polysubstance abuse, I discussed this with her again about quitting. Her mother was in the room today, but we had told the mother to step out and the patient wanted to be in private to discuss her home matter and care. At this time, we will get a.m. labs. Monitor closely. Right now, she is currently doing well and very stable. We will continue same plan of care. Get a.m. labs. The consultants are GI and Hematology. MD BARBARA Vigil/ADDY /[id number]
--- NOTE | 2019-02-01 19:00 | NUR ---
Received patient from day nurse, patient is alert and oriented, safety and fall precautions maintained as per hospital protocol: bed in lowest position and locked, needed items at bed side and call johnston placed close to patient, bed alarm on patient, patient encouraged to use the call light at all times for help, verbalized understanding. patient is currently stable will continue to monitor. patient has numerous family member is at the bed side.
--- NOTE | 2019-02-01 19:25 | NUR ---
PT RESTING ON BED BED SIDE REPORT GIVEN TO ONCOMING NURSE
[2019-02-01 19:58] LABS: FOLATE 9.7 ng/mL (7.0-15.4)
[2019-02-01 20:21] VITALS: BP 115/68
--- NOTE | 2019-02-01 20:46 | Consultation ---
DATE OF CONSULTATION: 01/31/2019 REQUESTING PHYSICIAN: Jennifer Kapadia MD. CONSULTING PHYSICIAN: Blade Adamson MD, Hematology-Oncology Service. REASON FOR CONSULTATION: Evaluation and management of the patient with pancytopenia. HISTORY OF PRESENTING ILLNESS: Ms. Torres is a 38-year-old young female with multiple medical problems including known history of depression, hypertension, hypothyroidism, chronic alcohol use and drug abuse, who presented to the emergency department due to abdominal distention and pain, which has been going on for one week. In the ED, she was noted to have pancytopenia. The patient was also positive for urine cocaine screen. She was admitted inpatient for further evaluation. Hematology-Oncology has been consulted to assist with the management. Presently, the patient is lying comfortably, not in any acute distress, however, drowsy and confused. She has been started on IV fluids for rhabdomyolysis. PAST MEDICAL HISTORY: 1. Hypertension. 2. Hyperlipidemia. 3. Obesity. 4. Diabetes mellitus. 5. Chronic alcohol use. 6. Hypothyroidism. 7. Depression. PAST SURGICAL HISTORY: None. FAMILY HISTORY: Positive for diabetes and hypertension. SOCIAL HISTORY: The patient uses illicit drugs especially cocaine and urine is positive for cocaine, positive for alcohol. The patient is also a smoker. ALLERGIES: NO KNOWN DRUG ALLERGIES. CURRENT MEDICATIONS: Reviewed as per electronic medical record. REVIEW OF SYSTEMS: Complete review of systems unobtainable. PHYSICAL EXAMINATION: VITAL SIGNS: Reviewed as per electronic medical records. HEENT: PERRLA. Extraocular movements are intact. Head is atraumatic and normocephalic. NECK: Supple. CVS: S1 and S2 audible. RESPIRATORY: Decreased bilateral air entry. ABDOMEN: Soft. Positive bowel sounds. EXTREMITIES: Negative edema. NEURO: The patient is alert and awake. LABORATORY DATA: Reviewed as per electronic medical record. ASSESSMENT AND PLAN: Ms. Torres is a 38-year-old female with multiple medical problems including known history of depression, diabetes mellitus, hypertension, hyperlipidemia, and obesity, admitted to the emergency department due to abdominal pain and not feeling well. She was noted to have positive tox screen of cocaine and alcohol. The patient has history of illicit drug use as well as chronic alcoholism. She was admitted to inpatient floor due to rhabdomyolysis and started on IV fluids. Hematology-Oncology has been consulted due to pancytopenia. I reviewed the record and discussed at length with the patient and family member about the patient's condition. At this point, recommendation would be to get baseline workup. Potential cause of pancytopenia could be underlying liver disease, as the patient has a history of alcoholism. However, nutritional deficiencies will be ruled out. If needed, we will consider bone marrow biopsy. Thank you for the consult. I will continue to be available. Please call with questions. Blade Adamson MD IJ/MODL /[id number]
--- NOTE | 2019-02-01 20:51 | Diagnostic Imaging Report ---
EXAM: Complete Abdominal Ultrasound INDICATION: ABD DISTENSION COMPARISON: None. TECHNIQUE: Transverse and longitudinal images of the upper abdomen were obtained. FINDINGS: Liver: Size: 14.3 cm in the right midclavicular line, normal Appearance: Heterogeneous echogenicity, nodular contour Mass: No focal masses Spleen: Size: 13.7 cm in length, enlarged Echogenicity: Normal Mass: No focal masses Gallbladder: Stones/Sludge: None Wall: Contracted, measures 0.4 cm in thickness. Appearance: No pericholecystic fluid or hydrops. Sonographic Lopes's Sign: Negative Bile Ducts: Intrahepatic Ducts: No dilatation Extrahepatic Ducts: Common bile duct measures 0.3 cm, no dilatation Pancreas: Visualized portions of the pancreatic head, neck and proximal body are normal. Right Kidney: Size: 12.6 cm Echogenicity: Normal Parenchymal thickness: Normal Collecting System: No hydronephrosis Stone: None Cyst/Mass: None Left Kidney: Size: 11.7 cm Echogenicity: Normal Parenchymal thickness: Normal Collecting System: No hydronephrosis Stone: None Cyst/Mass: None Vessels: Aorta: Visualized portions are normal Inferior Vena Cava: Visualized portions are normal Main Portal Vein: 1.2 cm, normal size with hepatopetal flow. Free Fluid: Small to moderate volume of ascites seen in the upper quadrants. IMPRESSION: Findings suggestive of hepatic cirrhosis with portal hypertension including splenomegaly and small to moderate volume ascites. No hepatic mass identified. Signed by: Shivam Harding DO on 02/01/2019 8:48 PM
--- NOTE | 2019-02-01 22:17 | NUR ---
patient not in room at this ntime, charge nurse made aware. Will follow up
--- NOTE | 2019-02-01 22:50 | NUR ---
Checked patient room again, patient was not in the room, Flash Developer made aware.
--- NOTE | 2019-02-01 22:57 | NUR ---
patient family member Ms Corbett listed as emergency contact called and stated will try and call people who may know patient and will call the hospital back. Dr. Kapadia will be made aware.
--- NOTE | 2019-02-01 23:01 | NUR ---
informed pt. remains out of the room, security called to check outside and charge nurse also looking for patient at this time, pt. personal things remain in room
--- NOTE | 2019-02-01 23:05 | NUR ---
Dr. Kapadia called made aware that patient has left her room for almost an hour.
--- NOTE | 2019-02-01 23:35 | NUR ---
charge nurse spoke with patient on phone, states she went home to eat and she would be back; explained that she was a hospital patient and could not leave the hospital, and go and come, pt. returning to hospital, pt. has no IV at this time
--- NOTE | 2019-02-02 01:38 | NUR ---
pt. has not returned to hospital as she had said she previous would, will be signed out AMA, admitting physician notified. If pt. returns will take to ER for reevaluation for readmission, ER notified of this possibly happening, charge nurse has tried calling pt. without success, primary care nurse has spoken to emergency contact, which was her mother. pt. is a 38 year old female who is alert and oriented AOC has been notified of situation
--- NOTE | 2019-02-02 04:31 | NUR ---
Patient has still not returned, Dr. Kapadia was made aware,Mother was also called and she confirmed that the daughter was with her brother and has confirmed to her that she will not return to the hospital/. \Room was cleared, patient left behind a blanket, a pink and black comb, mini lunch bag, a sports jersey to and a black under wear. patient removed and left iv access in the trash can. The belongings were removed from room and handed over to field service supervisor, the listed and removal was witnessed by my Tania pond.
--- NOTE | 2019-02-02 21:30 | Discharge Summary ---
FINAL DISCHARGE DIAGNOSES: 1. Left against medical advice, possibly also elopement. According to the staff, the patient did not sign any documents. She reports going downstairs to smoke, but never showed back up to the hospital and the patient left the hospital facility in campus. 2. Anasarca, multifactorial with underlying abdominal ascites and positive proteinuria. 3. Suspected liver cirrhosis due to alcohol abuse. 4. Type 2 diabetes. 5. Hypertension. 6. Hypothyroidism. 7. Rhabdomyolysis secondary to cocaine abuse. Urine drug screen positive. 8. Pancytopenia. 9. Polysubstance abuse. CONSULTANTS: GI and Hematology/Oncology. PHYSICAL EXAMINATION: VITAL SIGNS: Temperature is 97.1, pulse 78, respirations 18, blood pressure 115/68, pulse ox 97% on room air. LABORATORY FINDINGS: Show white count 3.6, hemoglobin 9.5, hematocrit is 27, and platelets of 118. Chemistry; sodium was 137, potassium was 3.5, chloride was 105, bicarbonate 27, anion gap of 8.5, BUN 13, creatinine 0.79. Iron saturation 38%, calcium 7.4, magnesium 1.1, but replaced. Total bilirubin is 0.5, AST 115 elevated, ALT 51, ammonia level 133. BNP 44. Albumin 1.7, TSH 4.4, folate was 9.7, vitamin B12 was 605. Urinalysis consistent with UTI. Urine protein to creatinine was 1 g. Microalbumin to creatinine was pending. UA with microscopy shows granular casts, 3+ protein, 1+ glucose. Hepatitis panel pending. Microbiology; urine cultures positive for E coli, Enterococcus faecalis. Abdominal ultrasound findings suggestive of hepatic cirrhosis with portal hypertension including splenomegaly and delgh-et-umleayau volume ascites. No hepatic mass identified. Chest x-ray shows no acute cardiopulmonary abnormalities. HOSPITAL COURSE: This is a 38-year-old female, who came into the ED with concerns of underlying anasarca, abdominal distention, ongoing for several days prior to arrival to the hospital. The patient came in, found to have positive urine drug screen for cocaine and found to have elevated CK. The patient was treated for underlying rhabdomyolysis due to cocaine abuse with IV fluid hydration. Her CK did improve throughout the hospital course. She was found to be pancytopenic requiring Hematology/Oncology consultation. It was felt that the pancytopenia is likely due to the liver cirrhosis. She also has a history of polysubstance abuse, which I discussed above quitting on several occasions. She also had GI consultation and was found to have underlying liver cirrhosis due to alcohol abuse. The patient also had some petechiae and thrombocytopenia, which needed further workup, but the patient left against medical advice. Apparently, the patient went downstairs for smoke and never came back to the hospital. I was notified by the nursing staff that the patient eloped and never came back. The patient left last night on 02/01/2019. Otherwise, the patient left against medical advice. MEDICATIONS: Left AMA. DISPOSITION: Left AMA. CONDITION: Left AMA. In the event of any worsening symptoms, the patient was advised to back to the ED for further evaluation. Discharge summary took greater than 35 minutes. Once again, the patient left against medical advice. MD BARBARA Vigil/MODL /[id number]
--- NOTE | 2019-02-03 02:41 | Progress Note ---
DATE: 02/02/2019 Followup Note CHIEF COMPLAINT: The patient with multiple medical problems, admitted with abdominal pain and noted to have positive drug screen. Hematology/Oncology was consulted due to pancytopenia. OBJECTIVE: GENERAL: The patient has been doing quite well, improving. VITAL SIGNS: Reviewed as per electronic medical record. HEENT: PERRLA. Extraocular movements are intact. Head is atraumatic and normocephalic. NECK: Supple. CVS: S1 and S2 audible. RESPIRATORY: Decreased bilateral air entry. ABDOMEN: Soft. Positive bowel sounds. EXTREMITIES: Negative edema. NEUROLOGIC: The patient is alert. LABORATORY DATA: Reviewed. ASSESSMENT AND PLAN: The patient has been doing better. At this point, counts are stable. So we will continue to monitor. No immediate hematologic intervention needed. However, if the patient discharged, follow up in the outpatient setting. MD PRINCESS Meade/ADDY /[id number]
== END 2019-02-02 04:45 | disposition left against medical advice (07) | DRG 558 ==
LOC: ER 13:03 → ERHOLD 17:28 → MED/SURG3 23:36
PROVIDERS: ADMIT Internal Medicine; ATTEND Internal Medicine
DX: M62.82 Rhabdomyolysis (principal); D61.818 Other pancytopenia; N39.0 Urinary tract infection, site not specified; K70.31 Alcoholic cirrhosis of liver with ascites; D64.9 Anemia, unspecified; F14.10 Cocaine abuse, uncomplicated; Z82.49 Family history of ischemic heart disease and other diseases of the circulatory system; S30.1XXA Contusion of abdominal wall, initial encounter; E66.01 Morbid (severe) obesity due to excess calories; Z68.39 Body mass index [BMI] 39.0-39.9, adult; E03.9 Hypothyroidism, unspecified; E11.65 Type 2 diabetes mellitus with hyperglycemia; I10 Essential (primary) hypertension; F32.9 Major depressive disorder, single episode, unspecified; F17.210 Nicotine dependence, cigarettes, uncomplicated; E78.5 Hyperlipidemia, unspecified; F10.20 Alcohol dependence, uncomplicated; B96.20 Unspecified Escherichia coli [E. coli] as the cause of diseases classified elsewhere; B95.2 Enterococcus as the cause of diseases classified elsewhere; Z79.84 Long term (current) use of oral hypoglycemic drugs
CPT/HCPCS: 36415; 71045; 76700; 80053; 80307; 81001; 82044; 82140; 82550; 82553; 82570; 82607; 82728; 82746; 82948; 83036; 83540; 83735; 83880; 84156; 84443; 84466; 84484; 85025; 85045; 85610; 85651; 85730; 86140; 86850; 86900; 87086; 87186; 93005; 99284; J0696; J1650; J1815; J1940; J2405; J3475; J7030

== ENCOUNTER 2019-12-06 10:08 | Inpatient (IN) | payer MEDICARE, OTHER ==
[~2019-12-06] VITALS: Ht 149.9 cm; Wt 81.6 kg
[~2019-12-06 10:08] MED LIST: BUSPIRONE HCL7.5 MG PO; CLONAZEPAM0.5 MG PO; LEVOTHYROXINE50 MCG PO; LISINOPRIL10 MG PO; LOSARTAN POTASS25 MG PO; METFORMIN HCL1000 MG PO; PIOGLITAZONE HC45 MG PO; VENLAFAXINE H37.5 MG PO
--- OUTSIDE RECORDS SUMMARY | 2019-12-06 10:11 | XMS REPORT ---
Author Author [facility] t Organization [facility] Address [address] [place] [address] Phone Unavailable Care Team Providers Care Die Out Worker Name Role Phone NO, PCP PCP Unavailable DAMARIANO, S UMBERTORIES Attphys Unavailable DAMARIANO, S JIRIES Admphys Unavailable Payers Payer Name Policy Type Policy Number Effective Date Expiration Date [facility] [id number] [facility] Problems Condition Name Condition Details Condition Category Status Onset Date Resolution Date Last Treatment Date Treating Clinician Comments Source Anemia Anemia Problem Active [facility] Pancytopenia Pancytopenia Problem Active [facility] Rash Rash Problem Active [facility] Rhabdomyolysis Rhabdomyolysis Problem Active [facility] Allergies, Adverse Reactions, Alerts This patient has no known allergies or adverse reactions. Medications Ordered Medication Name Filled Medication Name Start Date Stop Da te Current Medication? Ordering Clinician Indication Dosage Frequency Signature (SIG) Comments Components Source Lisinopril 10 Mg Tablet Lisinopril 10 Mg Tablet 2019-01-31 00:00:00 Yes 10 Daily [facility] Pioglitazone Hcl 45 Mg Tablet Pioglitazone Hcl 45 Mg Tablet 2018 00:00:00 Yes 45 Daily [facility] Buspirone Hcl 7.5 Mg Tablet Buspirone Hcl 7.5 Mg Tablet Yes 7.[address] [facility] Clonazepam 0.5 Mg Tablet Clonazepam 0.5 Mg Tablet Yes .5 Twice A Day as needed for Agitation [facility] Levothyroxine Sodium 50 Mcg Tablet Levothyroxine Sodium 50 Mcg Tablet Yes 50 Daily [facility] Losartan Potassium 25 Mg Tablet Losartan Potassium 25 Mg Tablet Yes 25 Daily [facility] Metformin Hcl 1,000 Mg Tablet Metformin Hcl 1,000 Mg Tablet Yes [address] [facility] Venlafaxine Hcl 37.5 Mg Tablet Venlafaxine Hcl 37.5 Mg Tablet Yes 37.5 Daily [facility] Procedures Procedure Date / Time Performed Performing Clinician Sourc e US abdomen complete 2019-02-01 00:00:00 YODIT HACKETT [facility] Encounters Start Date/Time End Date/Time Encounter Type Admission Type [facility] Care Department Encounter ID Source 2019-08-06 00:29:00 2019-08-05 19:50:00 Inpatient [id number] [place]-02-19 18:06:00 2019-02-19 18:06:00 Emergency E [id number] 2019-02-05 17:32:00 2019-02-05 17:32:00 Emergency E [id number] 2019-01-30 17:28:00 2019-02-02 04:45:00 Discharged Inpatient 1 [facility] [id number] [facility] 2018-11-04 11:05:00 2018-11-04 11:05:00 Outpatient [facility] [place] [id number] [facility] 2018-09-25 11:15:00 2018-09-25 11:15:00 Outpatient [facility] [id number] [facility] 2018-09-12 10:00:00 2018-09-12 10:00:00 Outpatient [facility] [id number] [facility] 2018-08-15 09:45:00 2018-08-15 09:45:00 Outpatient [facility] [id number] [facility] 2018-02-27 16:48:00 2018-02-27 16:48:00 Outpatient [facility] [facility] [place] [id number] [facility] Results Test Description Test Time Test Comments Results Result Comments Source US ABDOMEN COMPLETE 2019-02-01 20:43:00 [place] [address] Patient Name: ABIGAIL SWAN MR #: [id number] : 1980 Age/Sex: 38/F Req #: [id number] Adm Physician: REAL MIM[facility] MD Ordered by: YODIT HACKETT MD Report #: [id number] Location: [facility] Room/Bed: 2931 Procedure: [id number] US/US ABDOMEN COMPLETE Exam Date: 02/01/19 Exam Time: 1844 REPORT STATUS: Signed EXAM: Complete Abdominal Ultrasound INDICATION: ABD DISTENSION COMPARISON: None. TECHNIQUE: Transverse and longitudinal images of the upper abdomen were obtained. FINDINGS: Liver: Size: 14.3 cm in the right midclavicular line, normal Appearance: Heterogeneous echogenicity, nodular contour Mass: No focal masses Spleen: Size: 13.7 cm in length, enlarged Echogenicity: Normal Mass: No focal masses Gallbladder: Stones/Sludge: None Wall: Contracted, measures 0.4 cm in thickness. Appearance: No pericholecystic fluid or hydrops. Sonographic Lopes's Sign: Negative Bile Ducts: Intrahepatic Ducts: No dilatation Extrahepatic Ducts: Common bile duct measures 0.3 cm, no dilatation Pancreas: Visualized portions of the pancreatic head, neck and proximal body are normal. Right Kidney: Size: 12.6 cm Echogenicity: Normal Parenchymal thickness: Normal Collecting System: No hydronephrosis Stone: None Cyst/Mass: None Left Kidney: Size: 11.7 cm Echogenicity: Normal Parenchymal thickness: Normal Collecting System: No hydronephrosis Stone: None Cyst/Mass: None Vessels: Aorta: Visualized portions are normal Inferior Vena Cava: Visualized portions are normal Main Portal Vein: 1.2 cm, normal size with hepatopetal flow. Free Fluid: Small to moderate volume of ascites seen in the upper quadrants. 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 No hepatic mass identified. Signed by: Shivam Harding DO on 02/01/2019 8:48 PM Dictated By: SHIVAM HARDING DO 47 Transcribed By: TRACI on 02/01/192047 COPY TO: YODIT HACKETT MD Bedside Glucose 2019-02-01 20:03:00 Test Item Bedside Glucose (test code = 44462-0) 235 70-120 Meter ID: [id number] [facility]2019-[facility]13 20:00:00* Test Item Value Reference Range Interpretation Comments Folate (test code = 2284-8) 9.7 7.0-15.4 [facility] Random Total Xuhomtc1695-44-00 16:48:00* Test Item Value Reference Range Interpretation Comments Urine Random Total Protein (test code = 2888-6) 223.7 1-14 [facility] Protein/Creatinine Hmqar6885-82-99 16:48:00* Test Item Value Reference Range Interpretation Comments Urine Protein/Creatinine Ratio (test code = 58196-4) 1.00 [facility] HospitalUrine Vcpttnissn8038-25-67 16:20:00* Test Item Value Reference Range Interpretation Comments Urine Creatinine (test code = 2161-8) 135.63 47-110 [facility] HospitalUrine PWF5622-49-62 16:06:00* Test Item Value Reference Range Interpretation Comments Urine WBC (test code = 5821-4) 0-5 0-5 [facility] HospitalUrine CLU5598-63-14 16:06:00* Test Item Value Reference Range Interpretation Comments Urine RBC (test code = 22516-9) 6-10 0-5 [facility] HospitalUrine Ffyfgosy2846-67-75 16:06:00* Test Item Value Reference Range Interpretation Comments Urine Bacteria (test code = 75213-9) FEW NONE [facility] HospitalUrine Epithelial Qfell0170-48-39 16:06:00 * Test Item Value Reference Range Interpretation Comments Urine Epithelial Cells (test code = 96549-0) FEW NONE [facility] HospitalU[facility] Fine Granular Vbtjl1787-40-98 16:06:00* Test Item Value Reference Range Interpretation Comments Urine Fine Granular Casts (test code = 15510-7) 1-5 >0 [facility] HospitalUrine Ykrqo7005-05-22 16:06:00* Test Item Value Reference Range Interpretation Comments Urine Mucus (test code = 8247-9) FEW RARE [facility] HospitalUrine Amron7474-30-22 15:54:00* Test Item Value Reference Range Interpretation Comments Urine Color (test code = 5778-6) YELLOW YELLOW [facility] HospitalUrine Pdrsbku1894-39-05 15:54:00* Test Item Value Reference Range Interpretation Comments Urine Clarity (test code = 83434-5) SL CLOUDY CLEAR [facility] HospitalUrine Specific Ewoqbfl3921-45-20 15:54:00 * Test Item Value Reference Range Interpretation Comments Urine Specific [place] (test code = 5811-5) 1.025 1.010-1.02 5 [facility] HospitalUrine bI5028-33-64 15:54:00* Test Item Value Reference Range Interpretation Comments Urine pH (test code = 72511-1) 5.5 5-7 [facility] HospitalU[facility] Leukocyte Ywsnhacy5803-93-88 15:54:00* Test Item Value Reference Range Interpretation Comments Urine Leukocyte Esterase (test code = 10947-2) NEGATIVE NEGATIV E [facility] HospitalUrine Zxvwrcw3604-40-85 15:54:00* Test Item Value Reference Range Interpretation Comments Urine Nitrite (test code = 25138-0) NEGATIVE NEGATIVE [facility] HospitalUrine Udfhyfv3904-85-05 15:54:00* Test Item Value Reference Range Interpretation Comments Urine Protein (test code = 53689-3) 3+ NEGATIVE [facility] HospitalUrine Glucose (UA)2019-02-01 15:54:00* Test Item Value Reference Range Interpretation Comments Urine Glucose (UA) (test code = 96339-3) 1+ NEGATIVE [facility] HospitalUrine Qahqgrz7755-98-15 15:54:00* Test Item Value Reference Range Interpretation Comments Urine Ketones (test code = 94689-5) NEGATIVE NEGATIVE [facility] HospitalUrine Lyqoutkmiwpg1744-98-79 15:54:00* Test Item Value Reference Range Interpretation Comments Urine Urobilinogen (test code = 02458-0) 0.2 0.2-1 [facility] HospitalUrine Fgoyddsav4699-45-88 15:54:00* Test Item Value Reference Range Interpretation Comments Urine Bilirubin (test code = 1977-8) NEGATIVE NEGATIVE [facility] HospitalUrine Nhjjl3310-63-10 15:54:00* Test Item Value Reference Range Interpretation Comments Urine Blood (test code = 10280-3) MODERATE NEGATIVE [facility] HospitalUrine Uvyduyz0407-38-27 12:55:00* Test Item Value Reference Range Interpretation Comments Urine Culture (test code = 630-4) Organism: ESCHERICHIA COLI [facility] HospitalVitamin B12 Jgsei0556-93-00 08:36:00* Test Item Value Reference Range Interpretation Comments Vitamin B12 Level (test code = 25252-4) 605 213-816 [facility] HospitalErythrocyte Sedimentation Pqjq6491-99-55 08:22:00* Test Item Value Reference Range Interpretation Comments Erythrocyte Sedimentation Rate (test code = 4537-7) 75 0- 20 [facility] HospitalFerritin2019-07-13 08:22:00* Test Item Value Reference Range Interpretation Comments Ferritin (test code = 2276-4) 70.38 4.63-204.00 [facility] HospitalThyroid Stimulating Hormone (TSH) 2019-02-01 08:15:00* Test Item Value Reference Range Interpretation Comments Thyroid Stimulating Hormone (TSH) (test code = 22294-3) 4.439 0.350-4.940 [facility] HospitalIron Waxmd5615-11-60 08:01:00* Test Item Value Reference Range Interpretation Comments Iron Level (test code = 2498-4) 50 50-170 [facility] HospitalTotal Iron Binding Qpludvoo3107-66-38 08:01:00* Test Item Value Reference Range Interpretation Comments Total Iron Binding Capacity (test code = 2500-7) 132 261-4 78 [facility] HospitalPercent Iron Qharjnxlrw9715-55-29 08:01:00* Test Item Value Reference Range Interpretation Comments Percent Iron Saturation (test code = 2502-3) 38 15-50 [facility] HospitalTransferrin2019-07-13 08:01:00* Test Item Value Reference Range Interpretation Comments Transferrin (test code = 3034-6) 94 180-382 [facility]odium Eyzlh6142-68-25 07:57:00* Test Item Value Reference Range Interpretation Comments Sodium Level (test code = 2951-2) 137 136-145 [facility] HospitalPotassium Xnxjr0048-72-05 07:57:00* Test Item Value Reference Range Interpretation Comments Potassium Level (test code = 2823-3) 3.5 3.5-5.1 [facility] HospitalChloride Gccxk2220-01-43 07:57:00* Test Item Value Reference Range Interpretation Comments Chloride Level (test code = 2075-0) 105 98-107 [facility] HospitalCarbon Dioxide Npgcs8490-85-61 07:57:00* Test Item Value Reference Range Interpretation Comments Carbon Dioxide Level (test code = 2028-9) 27 22-29 [facility] HospitalAnion Ome3867-25-16 07:57:00* Test Item Value Reference Range Interpretation Comments Anion Gap (test code = 55228-4) 8.5 8-16 [facility] HospitalBlood Urea Fsfmetze8134-92-73 07:57:00* Test Item Value Reference Range Interpretation Comments Blood Urea Nitrogen (test code = 3094-0) 13 7-26 [facility] HospitalCreatinine2019-07-13 07:57:00* Test Item Value Reference Range Interpretation Comments Creatinine (test code = 2160-0) 0.79 0.57-1.11 [facility] HospitalBUN/Creatinine Esyhd2806-18-43 07:57:00* Test Item Value Reference Range Interpretation Comments BUN/Creatinine Ratio (test code = 3097-3) 16 6-25 [facility] HospitalEstimat Glomerular Filtration Rate 2019-02-01 07:57:00* Test Item Value Reference Range Interpretation Comments Estimat Glomerular Filtration Rate (test code = 376218405) > 60 >60 Ranges were taken from the National Kidney Disease Education Program and the Count includes the [facility] Kidney Foundation literature.Reference ranges:60 or greater: Tueyof47-73 ( for 3 consecutive months): Chronic kidney disease 15 or less: Kidney failureHouston Methodist The Woodlands HospitalGlucose Gzrkg9659-94-02 07:57:00* Test Item Value Reference Range Interpretation Comments Glucose Level (test code = NIC8728) 317 74-118 [facility] HospitalCalcium Zfjlj7285-76-53 07:57:00* Test Item Value Reference Range Interpretation Comments Calcium Level (test code = 33797-1) 7.4 8.4-10.2 [facility] HospitalMagnesium Iajoi1851-50-59 07:57:00* Test Item Value Reference Range Interpretation Comments Magnesium Level (test code = 80302-3) 1.1 1.3-2.1 Results repeated and called to RAMIRO MCCORMICK RN at 0756 on 02/01/19 by Alicia zaragoza. Read back and verified.[facility] HospitalTotal Pubtfryil0300-65-28 07:57:00* Test Item Value Reference Range Interpretation Comments Total Bilirubin (test code = 1975-2) 0.5 0.2-1.2 [facility] HospitalAspartate Amino Transf (AST/SGOT) 2019-02-01 07:57:00* Test Item Value Reference Range Interpretation Comments Aspartate Amino Transf (AST/SGOT) (test code = Aspartate Amino Transf (AST/SGOT)) 115 5-34 [facility] HospitalAlanine Aminotransferase (ALT/SGPT) 2019-02-01 07:57:00* Test Item Value Reference Range Interpretation Comments Alanine Aminotransferase (ALT/SGPT) (test code = 1742-6) 51 0-55 [facility] HospitalTotal Eagijug4430-72-24 07:57:00* Test Item Value Reference Range Interpretation Comments Total Protein (test code = 2885-2) 5.4 6.5-8.1 [facility] HospitalAlbumin2019-07-13 07:57:00* Test Item Value Reference Range Interpretation Comments Albumin (test code = 1751-7) 1.7 3.5-5.0 [facility] HospitalGlobulin2019-07-13 07:57:00* Test Item Value Reference Range Interpretation Comments Globulin (test code = 24526-8) 3.7 2.3-3.5 [facility] HospitalAlbumin/Globulin Vfutd1814-98-53 07:57:00 * Test Item Value Reference Range Interpretation Comments Albumin/Globulin Ratio (test code = 1759-0) 0.5 0.8-2.0 [facility] HospitalAlkaline Qvsohlmjyji3495-68-84 07:57:00* Test Item Value Reference Range Interpretation Comments Alkaline Phosphatase (test code = 6768-6) 135 40-150 [facility] HospitalCreatine Cqgjcy1677-35-46 07:57:00* Test Item Value Reference Range Interpretation Comments Creatine Kinase (test code = 2157-6) 288 29-168 [facility] HospitalPercent Reticulocyte Lsfhy3291-99-64 07:54:00* Test Item Value Reference Range Interpretation Comments Percent Reticulocyte Count (test code = 96821-9) 4.7 0.8-2 .2 [facility] HospitalWhite Blood Siyyg1345-47-24 07:53:00* Test Item Value Reference Range Interpretation Comments White Blood Count (test code = 6690-2) 3.66 4.8-10.8 [facility] HospitalRed Blood Uxjdg3866-50-67 07:53:00* Test Item Value Reference Range Interpretation Comments Red Blood Count (test code = 789-8) 2.75 3.6-5.1 [facility] HospitalHemoglobin2019-07-13 07:53:00* Test Item Value Reference Range Interpretation Comments Hemoglobin (test code = 26358-0) 9.5 12.0-16.0 [facility] HospitalHematocrit2019-07-13 07:53:00* Test Item Value Reference Range Interpretation Comments Hematocrit (test code = 4544-3) 27.3 34.2-44.1 [facility] HospitalMean Corpuscular Iabbur2081-60-27 07:53:00* Test Item Value Reference Range Interpretation Comments Mean Corpuscular Volume (test code = 787-2) 99.3 81-99 [facility] HospitalMean Corpuscular Kelljxovce0061-40-69 07:53:00* Test Item Value Reference Range Interpretation Comments Mean Corpuscular Hemoglobin (test code = 785-6) 34.5 28-32 [facility] HospitalMean Corpuscular Hemoglobin Concent 2019-02-01 07:53:00* Test Item Value Reference Range Interpretation Comments Mean Corpuscular Hemoglobin Concent (test code = 786-4) 34.8 31-35 [facility] HospitalRed Cell Distribution Bvetz3768-97-63 07:53:00* Test Item Value Reference Range Interpretation Comments Red Cell Distribution Width (test code = 85390-8) 13.3 11.7 -14.4 [facility] HospitalPlatelet Orwku0605-20-28 07:53:00* Test Item Value Reference Range Interpretation Comments Platelet Count (test code = 777-3) 118 140-360 [facility] HospitalNeutrophils (%) (Auto)2019-02-01 07:53:00 * Test Item Value Reference Range Interpretation Comments Neutrophils (%) (Auto) (test code = 61106-3) 58.8 38.7-80.0 [facility] HospitalLymphocytes (%) (Auto)2019-02-01 07:53:00 * Test Item Value Reference Range Interpretation Comments Lymphocytes (%) (Auto) (test code = 736-9) 30.6 18.0-39.1 [facility] HospitalMonocytes (%) (Auto)2019-02-01 07:53:00* Test Item Value Reference Range Interpretation Comments Monocytes (%) (Auto) (test code = 5905-5) 7.7 4.4-11.3 [facility] HospitalEosinophils (%) (Auto)2019-02-01 07:53:00 * Test Item Value Reference Range Interpretation Comments Eosinophils (%) (Auto) (test code = 713-8) 1.6 0.0-6.0 [facility] HospitalBasophils (%) (Auto)2019-02-01 07:53:00* Test Item Value Reference Range Interpretation Comments Basophils (%) (Auto) (test code = 706-2) 0.8 0.0-1.0 [facility] HospitalIM GRANULOCYTES %2019-02-01 07:53:00* Test Item Value Reference Range Interpretation Comments IM GRANULOCYTES % (test code = IM GRANULOCYTES %) 0.5 0.0- 1.0 [facility] HospitalNeutrophils # (Auto)2019-02-01 07:53:00* Test Item Value Reference Range Interpretation Comments Neutrophils # (Auto) (test code = 751-8) 2.2 2.1-6.9 [facility] HospitalLymphocytes # (Auto)2019-02-01 07:53:00* Test Item Value Reference Range Interpretation Comments Lymphocytes # (Auto) (test code = 27047-7) 1.1 1.0-3.2 [facility] HospitalMonocytes # (Auto)2019-02-01 07:53:00* Test Item Value Reference Range Interpretation Comments Monocytes # (Auto) (test code = 742-7) 0.3 0.2-0.8 [facility] HospitalEosinophils # (Auto)2019-02-01 07:53:00* Test Item Value Reference Range Interpretation Comments Eosinophils # (Auto) (test code = 711-2) 0.1 0.0-0.4 [facility] HospitalBasophils # (Auto)2019-02-01 07:53:00* Test Item Value Reference Range Interpretation Comments Basophils # (Auto) (test code = 704-7) 0.0 0.0-0.1 [facility] HospitalAbsolute Immature Granulocyte (auto 2019-02-01 07:53:00* Test Item Value Reference Range Interpretation Comments Absolute Immature Granulocyte (auto (jaime t code = Absolute Immature Granulocyte (auto) 0.02 0-0.1 [facility] HospitalHemoglobin A1c Apveqfo8550-08-75 07:50:00 * Test Item Value Reference Range Interpretation Comments Hemoglobin A1c Percent (test code = Hemoglobin A1c Percent) 7.4 4.0-7.0 [facility] HospitalUrine Opiates Yxgpis2664-78-05 17:34:00* Test Item Value Reference Range Interpretation Comments Urine Opiates Screen (test code = 53202-4) NEGATIVE NEGATIVE ALL TESTS PERFORMED MANUALLY ON [facility] TOX/SEE TESTHouston Methodist The Woodlands HospitalUrine Barbiturates Kdkpdz7038-42-36 17:34:00* Test Item Value Reference Range Interpretation Comments Urine Barbiturates Screen (test code = 072300727) NEGATIVE NEGA TIVE [facility] HospitalUrine Phencyclidine Lwqmyt8581-33-08 17:34:00* Test Item Value Reference Range Interpretation Comments Urine Phencyclidine Screen (test code = 52705-0) NEGATIVE NEGAT ROGER [facility] HospitalUrine Amphetamines Ibxcxl0898-23-82 17:34:00* Test Item Value Reference Range Interpretation Comments Urine Amphetamines Screen (test code = 94202-0) NEGATIVE NEGATI VE [facility] HospitalUrine Methamphetamines Ssnyik4344-60-99 17:34:00* Test Item Value Reference Range Interpretation Comments Urine Methamphetamines Screen (test code = Urine Metha mphetamines Screen) NEGATIVE NEGATIVE [facility] HospitalUrine Benzodiazepines Awpcfq2593-61-99 17:34:00* Test Item Value Reference Range Interpretation Comments Urine Benzodiazepines Screen (test code = 41535-8) NEGATIVE NEG ATIVE [facility] HospitalUrine Cocaine Vpdxcr1802-72-43 17:34:00* Test Item Value Reference Range Interpretation Comments Urine Cocaine Screen (test code = 3398-5) POSITIVE NEGATIVE This test provides only a screen. Positive results should be repeated by a confi rmatory test.[facility] HospitalUrine Cannabinoids Screen 2019-01-30 17:34:00* Test Item Value Reference Range Interpretation Comments Urine Cannabinoids Screen (test code = 09351-0) NEGATIVE NEGATI VE THESE RESULTS ARE FOR MEDICAL TREATMENT ONLYTHIS REPORT CONTAINS UNCONFIR MED SCREENING RESULTS*POSITIVE RESULTS WILL BE CONFIRMED BY REFERENCE LAB UPON R EQUEST CUT-OFFDRUG CLASS CONCENTRATION ng/mLAmphetamines 1000Methamphetamines 1000Cocaine 300Opiate 300Phencyc lidine 25Cannabinoid 50Barbiturates 300Benzodiazepine 300Methadone 300[facility] Methadone Sakdrs0379-66-35 17:34:00* Test Item Value Reference Range Interpretation Comments Urine Methadone Screen (test code = 67385-7) NEGATIVE NEGATIVE THESE RESULTS ARE FOR MEDICAL TREATMENT ONLYTHIS REPORT CONTAINS UNCONFIR MED SCREENING RESULTS*POSITIVE RESULTS WILL BE CONFIRMED BY REFERENCE LAB UPON R EQUEST CUT-OFFDRUG CLASS CONCENTRATION ng/mLAmphetamines 1000Methamphetamines 1000Cocaine Metabolite 300Opiate 300Phencyc lidine 25Cannabinoid 50Barbiturates 300Benzodiazepine 300Methadone 300[facility]iscoAmmonia2019-07-11 16:45:00* Test Item Value Reference Range Interpretation Comments Ammonia (test code = 92768-7) 133 31-123 [facility] HospitalB-Type Natriuretic Mchrefk3091-73-40 15:12:00* Test Item Value Reference Range Interpretation Comments B-Type Natriuretic Peptide (test code = 40613-3) 44.0 0-100 [facility] HospitalCHEST SINGLE (PORTABLE)2019-01-30 15:00:00 [place] [address] Patient Name: ABIGAIL SWAN MR #: [id number] : 1980 Age/Sex: 38/F Req #: [id number] Adm Physician: Ordered by: ANALY PHELPS ELECTROTYPE FINISHER Report #: [id number] Location: ER Room/Bed: Procedure: 0711-003 7 DX/CHEST SINGLE (PORTABLE) Exam Date: Exam Time: REPORT STATUS: Signed PROCEDURE: A single AP view of the chest. COMPARISON: None. INDICATIONS: SWOLLEN FEET AND BRUISING TO ABDOMEN, SLIGHT SOB FINDINGS: The l ungs are well-inflated and without focal airspace consolidation, pleural effu shiva, or pneumothorax. Cardiomediastinal contour and pulmonary vasculature ar e within normal limits for portable, AP technique. No acute osseous abnormali ty. IMPRESSION: No acute cardiopulmonary abnormality. Dictat ed by: Trae Colon M.D. on 01/30/2019 at 15:00 Electronically approved by : Trae Colon M.D. on 01/30/2019 at 15:00 Dictated By: TRAE SANCHES MD 1500 Transcribed By: MARIE on 01/30/19 1500 COPY TO: ANALY PHELPS [employer] FINISHER Creatine Kinase [id number] 14:59:00* Test Item Value Reference Range Interpretation Comments Creatine Kinase MB (test code = 65496-3) 20.00 0-5.0 [facility] [id number] 14:59:00* Test Item Value Reference Range Interpretation Comments Troponin I (test code = ZTS8487) 0.003 0-0.300 [facility] [id number] 14:43:00* Test Item Value Reference Range Interpretation Comments Prothrombin Time (test code = 5902-2) 13.4 11.9-14.5 [facility] International Ratio 2019-01-30 14:43:00* Test Item Value Reference Range Interpretation Comments Prothromb Time International Ratio (test code = 6301-6) 0.97 Oral Anticoagulant Therapy INR Values:1. Low Intensity Therapy 1.5 - 2.02 . Moderate Intensity Therapy 2.0 - 3.03. High Intensity Therapy(1) 2.5 - 3. 54. High Intensity Therapy(2) 3.0 - 4.05. Panic Value INR > 5.0 [facility] Partial Thromboplast Time 2019-01-30 14:43:00* Test Item Value Reference Range Interpretation Comments Activated Partial Thromboplast Time (test code = 42473-8) 30.6 23.8-35.5 [facility]
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
--- NOTE | 2019-12-06 10:18 | NUR ---
DR. CLEMENTE ASSESSING PATIENT AT THIS TIME.
[2019-12-06] MEDS ORDERED: FUROSEMIDE INJ 10 MG/ML 4 ML VIAL IV ONE (10:50)
[2019-12-06 11:03] LABS: BASOPHILS % 0.3 % (0.0-1.0); EOSINOPHILS # (AUTO) 0.3 (0.0-0.4); EOSINOPHILS % 3.5 % (0.0-6.0); HEMOGLOBIN 7.2 g/dL (12.0-16.0); LYMPHOCYTES # (AUTO) 0.7 (1.0-3.2); LYMPHOCYTES % 9.5 % (18.0-39.1); MEAN CORPUSCULAR HEMOGLOBIN 33.3 pg (28-32); MEAN CORPUSCULAR VOLUME 98.1 fL (81-99); MONOCYTES # (AUTO) 0.3 (0.2-0.8); MONOCYTES % 3.5 % (4.4-11.3); NEUTROPHILS # (AUTO) 6.3 (2.1-6.9); NEUTROPHILS % 82.8 % (38.7-80.0); PLATELET COUNT 189 x10e3/uL (140-360); RED BLOOD COUNT 2.16 x10e6/uL (3.6-5.1); RED CELL DISTRIBUTION WIDTH 13.6 % (11.7-14.4)
[2019-12-06 11:05] LABS: HEMATOCRIT 21.2 % (34.2-44.1)
[2019-12-06 11:26] LABS: ALBUMIN 2.2 g/dL (3.5-5.0); ALBUMIN/GLOBULIN RATIO 0.6 (0.8-2.0); CALCIUM 8.2 mg/dL (8.4-10.2); CREATININE, SERUM 1.21 mg/dL (0.57-1.11)
--- NOTE | 2019-12-06 12:10 | Emergency Department Note ---
History of Present Illnes History of Present Illness Chief Complaint: General Medicine Complaints History of Present Illness This is a 39 year old female arrived with left hip pain, atraumatic worse with ambulation, denies numbness/weakness. Historian: Patient Arrival Mode: Car Onset (how long ago): day(s) Radiation: non-radiation Onset quality: gradual Duration (how long): day(s) Timing of current episode: constant Progression: unchanged Chronicity: new Relieving factors: immobilization Exacerbating factors: movement Associated symptoms: denies other symptoms Treatments prior to arrival: none Past Medical/Family History Physician Review I have reviewed the patient's past medical and family history. Any updates have been documented here. Past Medical History Recent Fever: No Clinical Suspicion of Infectio: No New/Unexplained Change in Ment: No Past Medical History: Hypertension, Diabetes, Hypothyroidism, Liver Disease, Anemia, Anxiety Other Medical History: x2, Past Surgical History: Social History Smoking Cessation: Former smoker Counseling Performed: No Alcohol Use: Social Any Illegal Drug Use: No TB Exposure/Symptoms: No Physically hurt or threatened: No Other Last Tetanus: UNKNOWN Any Pre-Existing Lines (PICC,: No Is patient up to date on immun: No (pt states unsure) Last Flu: no Last Pneumovax: no Review of Systems Review of Systems Constitutional: no symptoms EENTM: no symptoms Cardiovascular: no symptoms Respiratory: no symptoms Gastrointestinal: no symptoms Genitourinary: no symptoms Musculoskeletal: back pain, muscle pain, muscle stiffness Neurological: no symptoms Psychological: no symptoms Endocrine: no symptoms Hematological/Lymphatic: no symptoms Review of other systems All other systems reviewed and negative. Physical Exam Related Data Allergies: Coded Allergies: No Known Allergies (Unverified , 01/30/19) Triage Vital Signs Vital Signs Date Time Temp Pulse Resp B/P (MAP) Pulse Ox O2 Delivery O2 Flow Rate FiO2 12/06/19 10:14 98.1 99 16 114/77 98 Vital signs reviewed: Yes Physical Exam CONSTITUTIONAL HENT HENT: normocephalic, atraumatic, oropharynx clear/moist, nose normal HENT L/R: left ext ear normal, right ext ear normal EYES Eyes: PERRL, conjunctivae normal NECK Neck: ROM normal PULMONARY Pulmonary: effort normal, breath sounds normal CARDIOVASCULAR Cardiovascular: regular rhythm, heart sounds normal, capillary refill normal, normal rate GASTROINTESTINAL Abdominal: soft, nontender, bowel sounds normal, distension GENITOURINARY Genitourinary: exam deferred SKIN Skin: warm, dry MUSCULOSKELETAL Musculoskeletal: ROM normal NEUROLOGICAL Neurological: alert, oriented x 3, no gross motor or sensory deficits PSYCHOLOGICAL Psychological: mood/affect normal, judgement normal Exam - additional comments +tenderness over the IT band, worse with abduction at hip Results Laboratory Result Diagram: 12/06/19 1050 12/06/19 1050 Laboratory Laboratory Tests Test 12/06/19 10:50 White Blood Count 7.66 x10e3/uL (4.8-10.8) Red Blood Count 2.16 x10e6/uL (3.6-5.1) Hemoglobin 7.2 g/dL (12.0-16.0) Hematocrit 21.2 % (34.2-44.1) Mean Corpuscular Volume 98.1 fL (81-99) Mean Corpuscular Hemoglobin 33.3 pg (28-32) Mean Corpuscular Hemoglobin Concent 34.0 g/dL (31-35) Red Cell Distribution Width 13.6 % (11.7-14.4) Platelet Count 189 x10e3/uL (140-360) Neutrophils (%) (Auto) 82.8 % (38.7-80.0) Lymphocytes (%) (Auto) 9.5 % (18.0-39.1) Monocytes (%) (Auto) 3.5 % (4.4-11.3) Eosinophils (%) (Auto) 3.5 % (0.0-6.0) Basophils (%) (Auto) 0.3 % (0.0-1.0) Neutrophils # (Auto) 6.3 (2.1-6.9) Lymphocytes # (Auto) 0.7 (1.0-3.2) Monocytes # (Auto) 0.3 (0.2-0.8) Eosinophils # (Auto) 0.3 (0.0-0.4) Basophils # (Auto) 0.0 (0.0-0.1) Absolute Immature Granulocyte (auto 0.03 x10e3/uL (0-0.1) Sodium Level 133 mmol/L (136-145) Potassium Level 4.0 mmol/L (3.5-5.1) Chloride Level 102 mmol/L (98-107) Carbon Dioxide Level 22 mmol/L (22-29) Anion Gap 13.0 mmol/L (8-16) Blood Urea Nitrogen 29 mg/dL (7-26) Creatinine 1.21 mg/dL (0.57-1.11) Estimat Glomerular Filtration Rate 50 ML/MIN (60-) BUN/Creatinine Ratio 24 (6-25) Glucose Level 146 mg/dL (74-118) Calcium Level 8.2 mg/dL (8.4-10.2) Total Bilirubin 1.1 mg/dL (0.2-1.2) Aspartate Amino Transf (AST/SGOT) 172 IU/L (5-34) Alanine Aminotransferase (ALT/SGPT) 82 IU/L (0-55) Alkaline Phosphatase 125 IU/L (40-150) B-Type Natriuretic Peptide 93.5 pg/mL (0-100) Total Protein 6.2 g/dL (6.5-8.1) Albumin 2.2 g/dL (3.5-5.0) Globulin 4.0 g/dL (2.3-3.5) Albumin/Globulin Ratio 0.6 (0.8-2.0) Human Chorionic Gonadotropin, Qual Negative (NEGATIVE) Lab results reviewed: Yes Imaging Imaging results reviewed: Yes Impressions IMPRESSION: No acute fractures or dislocations of the left hip. Extensive soft tissue density within the left hip soft tissues and lower pelvis may reflect anasarca or alternatively cellulitis. Correlate with physical exam. No abscess or drainable fluid collections. Signed by: Dr. Sofia Alvarado M.D. on 12/06/2019 12:40 PM Critical Care Time Subsequent provider I assumed direction of critical care for this patient from another provider of my specialty. Assessment & Plan Assessment & Plan Assessment & Plan 39 F arrived for left sided "hip" pain, on exam pt is tender over the IT band, no visualized cellulitis Last Vital Signs Date Time Temp Pulse Resp B/P (MAP) Pulse Ox O2 Delivery O2 Flow Rate FiO2 12/06/19 10:14 98.1 99 16 114/77 98 Home Meds Reported Medications Venlafaxine Hcl (VENLAFAXINE HCL) 37.5 Mg Tablet, 37.5 MG PO DAILY 01/31/19 Levothyroxine Sodium (LEVOTHYROXINE SODIUM) 50 Mcg Tablet, 50 MCG PO DAILY 01/31/19 Metformin Hcl (METFORMIN HCL) 1,000 Mg Tablet, 1000 UNIT PO BID 01/31/19 Buspirone Hcl (BUSPIRONE HCL) 7.5 Mg Tablet, 7.5 MG PO BID 01/31/19 Losartan Potassium (LOSARTAN POTASSIUM) 25 Mg Tablet, 25 MG PO DAILY 01/31/19 Lisinopril (LISINOPRIL) 10 Mg Tablet, 10 MG PO DAILY 01/31/19 Pioglitazone Hcl (PIOGLITAZONE HCL) 45 Mg Tablet, 45 MG PO DAILY 01/31/19 Clonazepam (CLONAZEPAM) 0.5 Mg Tablet, 0.5 MG PO BID PRN for AGITATION 01/31/19 Medications in the ED Furosemide 40 mg ONCE ONCE IV Last administered on 12/06/19at 11:00; Admin Dose 40 MG; Start 12/06/19 at 10:50; Stop 12/06/19 at 10:51; Status DC LEV CLEMENTE DO December 06, 2019 11:55
--- NOTE | 2019-12-06 12:43 | Diagnostic Imaging Report ---
CT scan of the LEFT HIP, WITHOUT intravenous contrast. INDICATION: ^Y ^left hip pain ^[id number] ^[id number] COMPARISON: None. TECHNIQUE: Standard departmental protocols were used. Sagittal and coronal reformatted images were obtained. IV CONTRAST: None. ORAL CONTRAST: None RADIATION DOSE: Total DLP: 305.2 mGy*cm Estimated effective dose: (DLP x 0.015 x size factor) mSv COMPLICATIONS: None FINDINGS: Bones: No fractures or dislocations in the left hip. Joints: Unremarkable Soft tissues: Extensive subcutaneous soft tissue density involving the visualized left lower pelvis and left hip soft tissues. No drainable fluid collections. Adjacent muscles of the left hip are intact. Large amount of ascites in the visualized pelvis. IMPRESSION: No acute fractures or dislocations of the left hip. Extensive soft tissue density within the left hip soft tissues and lower pelvis may reflect anasarca or alternatively cellulitis. Correlate with physical exam. No abscess or drainable fluid collections. Signed by: Dr. Sofia Alvarado M.D. on 12/06/2019 12:40 PM
[2019-12-06] MEDS ORDERED: LIDOCAINE 4% PATCH TP NR (13:30)
[2019-12-06] MEDS ORDERED: DIAZEPAM 2 MG TAB PO ONE (13:30)
[2019-12-06] MEDS ORDERED: KETOROLAC TROMETHAMINE 60 MG/2 ML VIAL IM ONE (13:30)
[2019-12-06] MEDS ORDERED: CEFEPIME 1GM/NS 0.9% 50 ML 50 ML IV STA ×2 (13:59→14:14)
--- NOTE | 2019-12-06 14:07 | NUR ---
borders marked and lido patch to left hip. pedal edema bilaterally d/t advanced cirrohosis of liver from etoh abuse.
[2019-12-06] MEDS ORDERED: KETOROLAC TROMETHAMINE 30 MG/ML VIAL IV NR (14:14)
--- OUTSIDE RECORDS SUMMARY | 2019-12-06 14:41 | XMS REPORT ---
Author Author [facility] t Organization [facility] Address 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 Name Role Phone NO, PCP PCP Unavailable SANDHIR, Antonio AMBICA Attphys Unavailable DAHU, S JIRIES Attphys Unavailable DAHU, S JIRIES Admphys Unavailable Payers Payer Name Policy Type Policy Number Effective Date Ex[facility] Date [id number] [facility] Problems Condition Name Condition Details Condition Category Status Onset Date Resolution Date Last Treatment Date Treating Clinician Comments Source Anemia Anemia Problem Active [facility] Pancytopenia Pancytopenia Problem Active [facility] Rash Rash Problem Active [facility] Rhabdomyolysis Rhabdomyolysis Problem Active [facility] Allergies, Adverse Reactions, Alerts This patient has no known allergies or adverse reactions. Medications Ordered Medication Name Filled Medication Name Start Date Stop Da te Current Medication? Ordering Clinician Indication Dosage Frequency Signature (SIG) Comments Components Source Lisinopril 10 Mg Tablet Lisinopril 10 Mg Tablet 2019-01-31 00:00:00 Yes 10 Daily [facility] Pioglitazone Hcl 45 Mg Tablet Pioglitazone Hcl 45 Mg Tablet 2018 00:00:00 Yes 45 Daily [facility] Buspirone Hcl 7.5 Mg Tablet Buspirone Hcl 7.5 Mg Tablet Yes 7.5 Twice A Day [facility] Clonazepam 0.5 Mg Tablet Clonazepam 0.5 Mg Tablet Yes .5 Twice A Day as needed for Agitation [facility] Levothyroxine Sodium 50 Mcg Tablet Levothyroxine Sodium 50 Mcg Tablet Yes 50 Daily [facility] Losartan Potassium 25 Mg Tablet Losartan Potassium 25 Mg Tablet Yes 25 Daily [facility] Metformin Hcl 1,000 Mg Tablet Metformin Hcl 1,000 Mg Tablet Yes 1000 Twice A Day [facility] Venlafaxine Hcl 37.5 Mg Tablet Venlafaxine Hcl 37.5 Mg Tablet Yes 37.5 Daily [facility] Procedures Procedure Date / Time Performed Performing Clinician Sourc e US abdomen complete 2019-02-01 00:00:00 YODIT HACKETT [facility] Encounters Start Date/Time End Date/Time [facility] Source 2019-08-06 00:29:00 2019-08-05 19:50:00 Inpatient E [id number] 2019-02-19 18:06:00 2019-02-19 18:06:00 Emergency E [id number] 2019-02-05 17:32:00 2019-02-05 17:32:00 Emergency E [id number] 2019-01-30 17:28:00 2019-02-02 04:45:00 Discharged Inpatient 1 REAL MIMS [facility] [id number] [facility] 2018-11-04 11:05:00 2018-11-04 11:05:00 Outpatient [facility] [place] [id number] [facility] 2018-09-25 11:15:00 2018-09-25 11:15:00 Outpatient [facility] [id number] [facility] 2018-09-12 10:00:00 2018-09-12 10:00:00 Outpatient [facility] [id number] [facility] 2018-08-15 09:45:00 2018-08-15 09:45:00 Outpatient [facility] [id number] [facility] 2018-02-27 16:48:00 2018-02-27 16:48:00 Outpatient [facility] [place] [id number] [facility] Results Test Description Test Time Test Comments Results Result Comments Source CT HIP LEFT WO 2019-12-06 12:10:00 [place] [address] Patient Name: ABIGAIL SWAN MR #: [id number] : 1980 Age/Sex: 39/F Req #: [id number] Adm Physician: Ordered by: LEV CLEMENTE DO Report #: [id number] Location: ER Room/Bed: Procedure: [id number] CT/CT HIP LEFT WO Exam Date: 12/06/19 Exam Time: 1141 REPORT STATUS: Signed CT scan of the LEFT HIP, WITHOUT intravenous contrast. INDICATION: Y left hip pain [id number] COMPARISON: None. TECHNIQUE: Standard departmental protocols were used. Sagittal and coronal reformatted images were obtained. IV CONTRAST: None. ORAL CONTRAST: None RADIATION DOSE: Total DLP: 305.2 mGy*cm Estimated effective dose: (DLP x 0.015 x size factor) mSv COMPLICATIONS: None FINDINGS: Bones: No fractures or dislocations in the left hip. Joints: Unremarkable Soft tissues: Extensive subcutaneous soft tissue density involving the visualized left lower pelvis and left hip soft tissues. No drainable fluid collections. Adjacent muscles of the left hip are intact. Large amount of ascites in the visualized pelvis. IMPRESSION: No acute fractures or dislocations of the left hip. Extensive soft tissue density within the left hip soft tissues and lower pelvis may reflect anasarca or alternatively cellulitis. Correlate with physical exam. No abscess or drainable fluid collections. Signed by: Dr. Sofia Alvarado M.D. on 12/06/2019 12:40 PM Dictated By: SOFIA ALVARADO MD 1240 Transcribed By: TRACI on 12/06/19 1240 COPY TO: LEV CLEMENTE DO US ABDOMEN COMPLETE 2019-02-01 20:43:00 [place] [address] Patient Name: ABIGAIL SWAN MR #: [id number] : 1980 Age/Sex: 38/F Req #: [id number] Adm Physician: REAL MIMS MD Ordered by: YODIT HACKETT MD Report #: [id number] Location: MED/SURG3 Room/Bed: [facility] Procedure: [id number] US/US ABDOMEN COMPLETE Exam Date: 02/01/19 Exam Time: 184 REPORT STATUS: Signed EXAM: Complete Abdominal Ultrasound [...] No hepatic mass identified. Signed by: Shivam Cortez DO on 02/01/2019 8:48 PM Dictated By: SHIVAM CORTEZ DO 47 Transcribed By: TRACI on 02/01/192047 COPY TO: YODIT HACKETT MD Bedside Glucose 2019-02-01 20:03:00 Test Item Bedside Glucose (test code = 46050-5) 235 70-120 Meter ID: [id number] [facility] AllenFolate2019-07-13 20:00:00* Test Item Value Reference Range Interpretation Comments Folate (test code = 2284-8) 9.7 7.0-15.4 [facility] HospitalUrine Random Total Iuqqnzm5212-82-52 16:48:00* Test Item Value Reference Range Interpretation Comments Urine Random Total Protein (test code = 2888-6) 223.7 1-14 [facility] HospitalUrine Protein/Creatinine Itiob5490-87-17 16:48:00* Test Item Value Reference Range Interpretation Comments Urine Protein/Creatinine Ratio (test code = 52958-7) 1.00 [facility] HospitalUrine Donmgoqunp2323-23-06 16:20:00* Test Item Value Reference Range Interpretation Comments Urine Creatinine (test code = 2161-8) 135.63 47-110 [facility] HospitalUrine ZEE1177-50-47 16:06:00* Test Item Value Reference Range Interpretation Comments Urine WBC (test code = 5821-4) 0-5 0-5 [facility] HospitalUrine QJI8811-57-65 16:06:00* Test Item Value Reference Range Interpretation Comments Urine RBC (test code = 48073-9) 6-10 0-5 [facility] HospitalUrine Nrftzaia9775-79-61 16:06:00* Test Item Value Reference Range Interpretation Comments Urine Bacteria (test code = 42070-3) FEW NONE [facility] Epithelial Qradq2168-06-08 16:06:00 * Test Item Value Reference Range Interpretation Comments Urine Epithelial Cells (test code = 85129-3) FEW NONE [facility] HospitalUrine Fine Granular Qgxgw5129-98-58 16:06:00* Test Item Value Reference Range Interpretation Comments Urine Fine Granular Casts (test code = 61327-0) 1-5 >0 [facility] Wpwqx6173-99-15 16:06:00* Test Item Value Reference Range Interpretation Comments Urine Mucus (test code = 8247-9) FEW RARE [facility] HospitalUrine Rnasg9894-34-86 15:54:00* Test Item Value Reference Range Interpretation Comments Urine Color (test code = 5778-6) YELLOW YELLOW [facility] HospitalUrine Ltclwcb4001-13-06 15:54:00* Test Item Value Reference Range Interpretation Comments Urine Clarity (test code = 60147-4) SL CLOUDY CLEAR [facility] HospitalUrine Specific Dtpavcy9332-96-45 15:54:00 * Test Item Value Reference Range Interpretation Comments Urine Specific [place] (test code = 5811-5) 1.025 1.010-1.02 5 [facility] HospitalUrine qC7669-30-69 15:54:00* Test Item Value Reference Range Interpretation Comments Urine pH (test code = 03360-7) 5.5 5-7 [facility] HospitalUrine Leukocyte Zsrmevph7733-04-10 15:54:00* Test Item Value Reference Range Interpretation Comments Urine Leukocyte Esterase (test code = 29904-1) NEGATIVE NEGATIV E [facility] HospitalUrine Fehspvx3521-62-11 15:54:00* Test Item Value Reference Range Interpretation Comments Urine Nitrite (test code = 56374-6) NEGATIVE NEGATIVE [facility] HospitalUrine Ptnvjzj3387-15-04 15:54:00* Test Item Value Reference Range Interpretation Comments Urine Protein (test code = 63403-1) 3+ NEGATIVE [facility] HospitalUrine Glucose (UA)2019-02-01 15:54:00* Test Item Value Reference Range Interpretation Comments Urine Glucose (UA) (test code = 56181-0) 1+ NEGATIVE [facility] HospitalUrine Koyntlq2974-20-41 15:54:00* Test Item Value Reference Range Interpretation Comments Urine Ketones (test code = 92968-7) NEGATIVE NEGATIVE [facility] HospitalUrine Wbnslfkuyqok3926-18-20 15:54:00* Test Item Value Reference Range Interpretation Comments Urine Urobilinogen (test code = 23795-9) 0.2 0.2-1 [facility] HospitalUrine Pngefldvu7094-02-65 15:54:00* Test Item Value Reference Range Interpretation Comments Urine Bilirubin (test code = 1977-8) NEGATIVE NEGATIVE [facility] HospitalUrine Gmkyr9226-16-28 15:54:00* Test Item Value Reference Range Interpretation Comments Urine Blood (test code = 23563-7) MODERATE NEGATIVE [facility] HospitalUrine Pgfeccz0711-47-56 12:55:00* Test Item Value Reference Range Interpretation Comments Urine Culture (test code = 630-4) Organism: ESCHERICHIA COLI [facility] HospitalVitamin B12 Fjjxq6562-85-24 08:36:00* Test Item Value Reference Range Interpretation Comments Vitamin B12 Level (test code = 30872-2) 603 320-456 [facility] HospitalErythrocyte Sedimentation Kjdb8199-91-50 08:22:00* Test Item Value Reference Range Interpretation Comments Erythrocyte Sedimentation Rate (test code = 4537-7) 75 0- 20 [facility] HospitalFerritin2019-07-13 08:22:00* Test Item Value Reference Range Interpretation Comments Ferritin (test code = 2276-4) 70.38 4.63-204.00 [facility] HospitalThyroid Stimulating Hormone (TSH) 2019-02-01 08:15:00* Test Item Value Reference Range Interpretation Comments Thyroid Stimulating Hormone (TSH) (test code = 63252-5) 4.439 0.350-4.940 [facility] HospitalIron Djslk2334-71-13 08:01:00* Test Item Value Reference Range Interpretation Comments Iron Level (test code = 2498-4) 50 50-170 [facility] HospitalTotal Iron Binding Zeewdamx5209-70-01 08:01:00* Test Item Value Reference Range Interpretation Comments Total Iron Binding Capacity (test code = 2500-7) 132 261-4 78 [facility] HospitalPercent Iron Nvoxdoplpk6940-77-33 08:01:00* Test Item Value Reference Range Interpretation Comments Percent Iron Saturation (test code = 2502-3) 38 15-50 [facility] HospitalTransferrin2019-07-13 08:01:00* Test Item Value Reference Range Interpretation Comments Transferrin (test code = 3034-6) 94 180-382 [facility] Dpymy6327-30-29 07:57:00* Test Item Value Reference Range Interpretation Comments Sodium Level (test code = 2951-2) 137 136-145 [facility] HospitalPotassium Llqka3407-99-35 07:57:00* Test Item Value Reference Range Interpretation Comments Potassium Level (test code = 2823-3) 3.5 3.5-5.1 [facility] HospitalChloride Iitii7362-64-10 07:57:00* Test Item Value Reference Range Interpretation Comments Chloride Level (test code = 2075-0) 105 98-107 [facility] HospitalCarbon Dioxide Ddsqx3378-22-62 07:57:00* Test Item Value Reference Range Interpretation Comments Carbon Dioxide Level (test code = 2028-9) 27 22-29 [facility] HospitalAnion Yra9736-43-45 07:57:00* Test Item Value Reference Range Interpretation Comments Anion Gap (test code = 29226-5) 8.5 8-16 [facility] HospitalBlood Urea Irjgtzwz2272-67-77 07:57:00* Test Item Value Reference Range Interpretation Comments Blood Urea Nitrogen (test code = 3094-0) 13 02-14 [facility] HospitalCreatinine2019-07-13 07:57:00* Test Item Value Reference Range Interpretation Comments Creatinine (test code = 2160-0) 0.79 0.57-1.11 [facility] HospitalBUN/Creatinine Futzt4578-07-15 07:57:00* Test Item Value Reference Range Interpretation Comments BUN/Creatinine Ratio (test code = 3097-3) 16 01-14 [facility] HospitalEstimat Glomerular Filtration Rate 2019-02-01 07:57:00* Test Item Value Reference Range Interpretation Comments Estimat Glomerular Filtration Rate (test code = 421999317) > 60 >60 Ranges were taken from the National Kidney Disease Education Program and the [facility] literature.Reference ranges:60 or greater: Ajzjxf25-76 ( for 3 consecutive months): Chronic kidney disease 15 or less: Kidney failureTexas Health Arlington Memorial HospitalGlucose Tdrbl8140-48-42 07:57:00* Test Item Value Reference Range Interpretation Comments Glucose Level (test code = DWY7587) 317 74-118 [facility] HospitalCalcium Ysrib0383-42-70 07:57:00* Test Item Value Reference Range Interpretation Comments Calcium Level (test code = 89282-0) 7.4 8.4-10.2 [facility] HospitalMagnesium Owxxw5531-34-93 07:57:00* Test Item Value Reference Range Interpretation Comments Magnesium Level (test code = 39028-6) 1.1 1.3-2.1 Results repeated and called to RAMIRO MCCORMICK RN at 0756 on 02/01/19 by Alicia zaragoza. Read back and verified.[facility] HospitalTotal Lbnszvxkx9955-06-28 07:57:00* Test Item Value Reference Range Interpretation Comments Total Bilirubin (test code = 1975-2) 0.5 0.2-1.2 [facility] HospitalAspartate Amino Transf (AST/SGOT) 2019-02-01 07:57:00* Test Item Value Reference Range Interpretation Comments Aspartate Amino Transf (AST/SGOT) (test code = Aspartate Amino Transf (AST/SGOT)) 115 5-34 [facility] HospitalAlanine Aminotransferase (ALT/SGPT) 2019-02-01 07:57:00* Test Item Value Reference Range Interpretation Comments Alanine Aminotransferase (ALT/SGPT) (test code = 1742-6) 51 0-55 [facility] HospitalTotal Glihjjc3715-12-50 07:57:00* Test Item Value Reference Range Interpretation Comments Total Protein (test code = 2885-2) 5.4 6.5-8.1 [facility] HospitalAlbumin2019-07-13 07:57:00* Test Item Value Reference Range Interpretation Comments Albumin (test code = 1751-7) 1.7 3.5-5.0 [facility] HospitalGlobulin2019-07-13 07:57:00* Test Item Value Reference Range Interpretation Comments Globulin (test code = 07884-8) 3.7 2.3-3.5 [facility] HospitalAlbumin/Globulin Rkjgf2412-75-36 07:57:00 * Test Item Value Reference Range Interpretation Comments Albumin/Globulin Ratio (test code = 1759-0) 0.5 0.8-2.0 [facility] HospitalAlkaline Seighnynkoe3417-24-71 07:57:00* Test Item Value Reference Range Interpretation Comments Alkaline Phosphatase (test code = 6768-6) 135 40-150 [facility] HospitalCreatine Xrqkyr9420-98-13 07:57:00* Test Item Value Reference Range Interpretation Comments Creatine Kinase (test code = 2157-6) 288 29-168 [facility] HospitalPercent Reticulocyte Usird8542-40-31 07:54:00* Test Item Value Reference Range Interpretation Comments Percent Reticulocyte Count (test code = 45282-0) 4.7 0.8-2 .2 [facility] HospitalWhite Blood Pfnar5325-84-52 07:53:00* Test Item Value Reference Range Interpretation Comments White Blood Count (test code = 6690-2) 3.66 4.8-10.8 [facility] HospitalRed Blood Aoggp4752-48-44 07:53:00* Test Item Value Reference Range Interpretation Comments Red Blood Count (test code = 789-8) 2.75 3.6-5.1 [facility] HospitalHemoglobin2019-07-13 07:53:00* Test Item Value Reference Range Interpretation Comments Hemoglobin (test code = 04087-6) 9.5 12.0-16.0 [facility] HospitalHematocrit2019-07-13 07:53:00* Test Item Value Reference Range Interpretation Comments Hematocrit (test code = 4544-3) 27.3 34.2-44.1 [facility] HospitalMean Corpuscular Yzkqvy5954-83-14 07:53:00* Test Item Value Reference Range Interpretation Comments Mean Corpuscular Volume (test code = 787-2) 99.3 81-99 [facility] HospitalMean Corpuscular Culalfjbuo2035-59-88 07:53:00* Test Item Value Reference Range Interpretation Comments Mean Corpuscular Hemoglobin (test code = 785-6) 34.5 28-32 [facility] HospitalMean Corpuscular Hemoglobin Concent 2019-02-01 07:53:00* Test Item Value Reference Range Interpretation Comments Mean Corpuscular Hemoglobin Concent (test code = 786-4) 34.8 31-35 [facility] HospitalRed Cell Distribution Tiygm8719-89-48 07:53:00* Test Item Value Reference Range Interpretation Comments Red Cell Distribution Width (test code = 86033-6) 13.3 11.7 -14.4 [facility] HospitalPlatelet Tuarz7125-63-93 07:53:00* Test Item Value Reference Range Interpretation Comments Platelet Count (test code = 777-3) 118 140-360 [facility] HospitalNeutrophils (%) (Auto)2019-02-01 07:53:00 * Test Item Value Reference Range Interpretation Comments Neutrophils (%) (Auto) (test code = 42106-4) 58.8 38.7-80.0 [facility] HospitalLymphocytes (%) (Auto)2019-02-01 07:53:00 * Test Item Value Reference Range Interpretation Comments Lymphocytes (%) (Auto) (test code = 736-9) 30.6 18.0-39.1 [facility] HospitalMonocytes (%) (Auto)2019-02-01 07:53:00* Test Item Value Reference Range Interpretation Comments Monocytes (%) (Auto) (test code = 5905-5) 7.7 4.4-11.3 [facility] HospitalEosinophils (%) (Auto)2019-02-01 07:53:00 * Test Item Value Reference Range Interpretation Comments Eosinophils (%) (Auto) (test code = 713-8) 1.6 0.0-6.0 [facility] HospitalBasophils (%) (Auto)2019-02-01 07:53:00* Test Item Value Reference Range Interpretation Comments Basophils (%) (Auto) (test code = 706-2) 0.8 0.0-1.0 [facility] HospitalIM GRANULOCYTES %2019-02-01 07:53:00* Test Item Value Reference Range Interpretation Comments IM GRANULOCYTES % (test code = IM GRANULOCYTES %) 0.5 0.0- 1.0 [facility] HospitalNeutrophils # (Auto)2019-02-01 07:53:00* Test Item Value Reference Range Interpretation Comments Neutrophils # (Auto) (test code = 751-8) 2.2 2.1-6.9 [facility] HospitalLymphocytes # (Auto)2019-02-01 07:53:00* Test Item Value Reference Range Interpretation Comments Lymphocytes # (Auto) (test code = 90740-6) 1.1 1.0-3.2 [facility] HospitalMonocytes # (Auto)2019-02-01 07:53:00* Test Item Value Reference Range Interpretation Comments Monocytes # (Auto) (test code = 742-7) 0.3 0.2-0.8 [facility] HospitalEosinophils # (Auto)2019-02-01 07:53:00* Test Item Value Reference Range Interpretation Comments Eosinophils # (Auto) (test code = 711-2) 0.1 0.0-0.4 [facility] HospitalBasophils # (Auto)2019-02-01 07:53:00* Test Item Value Reference Range Interpretation Comments Basophils # (Auto) (test code = 704-7) 0.0 0.0-0.1 [facility] HospitalAbsolute Immature Granulocyte (auto 2019-02-01 07:53:00* Test Item Value Reference Range Interpretation Comments Absolute Immature Granulocyte (auto (jaime t code = Absolute Immature Granulocyte (auto) 0.02 0-0.1 [facility] HospitalHemoglobin A1c Aoqodpy9811-98-39 07:50:00 * Test Item Value Reference Range Interpretation Comments Hemoglobin A1c Percent (test code = Hemoglobin A1c Percent) 7.4 4.0-7.0 [facility] HospitalUrine Opiates Lvochg7233-07-03 17:34:00* Test Item Value Reference Range Interpretation Comments Urine Opiates Screen (test code = 21453-2) NEGATIVE NEGATIVE ALL TESTS PERFORMED MANUALLY ON [employer] TOX/SEE TESTTexas Health Arlington Memorial HospitalUrine Barbiturates Hbkrkv7092-09-19 17:34:00* Test Item Value Reference Range Interpretation Comments Urine Barbiturates Screen (test code = 910689177) NEGATIVE NEGA TIVE [facility] HospitalUrine Phencyclidine Qifubf1752-06-51 17:34:00* Test Item Value Reference Range Interpretation Comments Urine Phencyclidine Screen (test code = 87843-3) NEGATIVE NEGAT ROGER [facility] HospitalUrine Amphetamines Kksgvp2123-67-63 17:34:00* Test Item Value Reference Range Interpretation Comments Urine Amphetamines Screen (test code = 46036-8) NEGATIVE NEGATI VE [facility] HospitalUrine Methamphetamines Eyjlkn1959-38-69 17:34:00* Test Item Value Reference Range Interpretation Comments Urine Methamphetamines Screen (test code = Urine Metha mphetamines Screen) NEGATIVE NEGATIVE [facility] HospitalUrine Benzodiazepines Xjjaok0767-14-75 17:34:00* Test Item Value Reference Range Interpretation Comments Urine Benzodiazepines Screen (test code = 28681-1) NEGATIVE NEG ATIVE [facility] HospitalUrine Cocaine Ppdomn1106-90-47 17:34:00* Test Item Value Reference Range Interpretation Comments Urine Cocaine Screen (test code = 3398-5) POSITIVE NEGATIVE This test provides only a screen. Positive results should be repeated by a confi rmatory test.[facility] HospitalUrine Cannabinoids Screen 2019-01-30 17:34:00* Test Item Value Reference Range Interpretation Comments Urine Cannabinoids Screen (test code = 26322-7) NEGATIVE NEGATI VE THESE RESULTS ARE FOR MEDICAL TREATMENT ONLYTHIS REPORT CONTAINS UNCONFIR MED SCREENING RESULTS*POSITIVE RESULTS WILL BE CONFIRMED BY REFERENCE LAB UPON R EQUEST CUT-OFFDRUG CLASS CONCENTRATION ng/mLAmphetamines 1000Methamphetamines 1000Cocaine 300Opiate 300Phencyc lidine 25Cannabinoid 50Barbiturates 300Benzodiazepine 300Methadone 300[facility] HospitalUrine Methadone Ayuxjx3308-73-79 17:34:00* Test Item Value Reference Range Interpretation Comments Urine Methadone Screen (test code = 28635-6) NEGATIVE NEGATIVE THESE RESULTS ARE FOR MEDICAL TREATMENT ONLYTHIS REPORT CONTAINS UNCONFIR MED SCREENING RESULTS*POSITIVE RESULTS WILL BE CONFIRMED BY REFERENCE LAB UPON R EQUEST CUT-OFFDRUG CLASS CONCENTRATION ng/mLAmphetamines 1000Methamphetamines 1000Cocaine Metabolite 300Opiate 300Phencyc lidine 25Cannabinoid 50Barbiturates 300Benzodiazepine 300Methadone 300[facility] HospitalAmmonia2019-07-11 16:45:00* Test Item Value Reference Range Interpretation Comments Ammonia (test code = 78964-9) 133 31-123 [facility] HospitalB-Type Natriuretic Jkvkkmm5063-27-18 15:12:00* Test Item Value Reference Range Interpretation Comments B-Type Natriuretic Peptide (test code = 11485-0) 44.0 0-100 [facility] HospitalCHEST SINGLE (PORTABLE)2019-01-30 15:00:00 [place] [address] Patient Name: ABIGAIL SWAN MR #: [id number] : 1980 Age/Sex: 38/F Req #: [id number] Adm Physician: Ordered by: ANALY PHELPS NP Report #: [id number] Location: ER Room/Bed: Procedure: 7 DX/CHEST SINGLE (PORTABLE) Exam Date: Exam [...] acute cardiopulmonary abnormality. Dictat ed by: Trae Nicole M.D. on 01/30/2019 at 15:00 Electronically approved by : Trae Nicole M.D. on 01/30/2019 at 15:00 Dictated By: TRAE SANCHES MD 1500 Transcribed By: MARIE on 01/30/19 1500 COPY TO: ANALY PHELPS NP Creatine Kinase [id number] 14:59:00* Test Item Value Reference Range Interpretation Comments Creatine Kinase MB (test code = 04102-2) 20.00 0-5.0 [facility] [id number] 14:59:00* Test Item Value Reference Range Interpretation Comments Troponin I (test code = NKH3449) 0.003 0-0.300 [facility] [id number] 14:43:00* Test Item Value Reference Range Interpretation Comments Prothrombin Time (test code = 5902-2) 13.4 11.9-14.5 [facility] International Ratio 2019-01-30 14:43:00* Test Item Value Reference Range Interpretation Comments Prothromb Time International Ratio (test code = 6301-6) 0.97 Oral Anticoagulant Therapy INR Values:1. Low Intensity Therapy 1.5 - 2.02 . Moderate Intensity Therapy 2.0 - 3.03. High Intensity Therapy(1) 2.5 - 3. 54. High Intensity Therapy(2) 3.0 - 4.05. Panic Value INR > 5.0 [facility] Partial Thromboplast Time 2019-01-30 14:43:00* Test Item Value Reference Range Interpretation Comments Activated Partial Thromboplast Time (test code = 50267-3) 30.6 23.8-35.5 [facility]
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
[2019-12-06] MEDS ORDERED: ONDANSETRON HCL INJ 2MG/ML 2ML 2 MG/ML VIAL IV PRN (15:00)
[2019-12-06] MEDS ORDERED: ACETAMINOPHEN/CODEINE 300MG - 30MG TAB PO PRN (15:00)
[2019-12-06] MEDS ORDERED: VANCOMYCIN 1GM/NS 250 ML 250 ML IV ONE ×2 (15:00→17:00)
[2019-12-06] MEDS ORDERED: ACETAMINOPHEN 325 MG TAB PO PRN (15:00)
[2019-12-06] MEDS: VANCOMYCIN 1GM/NS 250 ML 250 ML IV ONE ×2 (15:19→17:16)
--- NOTE | 2019-12-06 15:53 | NUR ---
UPDATED ROBERT HAHN PT NEEDS VANCOMYCIN STARTED.
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
[2019-12-06] MEDS ORDERED: INSULIN LISPRO 100 UNIT/1 ML 3ML VIAL SQ SCH (16:30)
[2019-12-06 16:41] VITALS: BP 128/83
[2019-12-06] MEDS ORDERED: NICOTINE 21 MG/EA PATCH TOP SCH (17:15)
[2019-12-06] MEDS ORDERED: SODIUM CHLORIDE 0.9% 250ML 250 ML ONE (17:24)
[2019-12-06 17:36] VITALS: BP 128/83
[2019-12-06 17:38] VITALS: BP 128/83
--- NOTE | 2019-12-06 18:38 | NUR ---
PATIENT WANTING TO LEAVE AMA. EXPLAINED MEDICAL RISKS. AMA PAPER SIGNED BY PATIENT. IV REMOVED AND PRESSURE DRESSING APPLIED.
--- NOTE | 2019-12-06 22:29 | History and Physical ---
CHIEF COMPLAINT: Left hip pain. HISTORY OF PRESENT ILLNESS: This is a 39-year-old with cirrhosis and diabetes. Apparently, the patient sat on poison [place] last week and subsequently developed left hip pain and redness. The patient received Valium in the emergency room. At this time, the patient is sedated and cannot give any history. Mom is at the bedside provided limited history. Not sure if she had fever or not. No obvious vomiting. PAST MEDICAL AND SURGICAL HISTORY: 1. Diabetes. 2. Hypertension. 3. Alcoholic cirrhosis. 4. Hypothyroidism. MEDICATIONS: Please see medication reconciliation form. ALLERGIES: NONE. SOCIAL HISTORY: Not sure if she has quit smoking, apparently had used cocaine last year. FAMILY HISTORY: Significant for diabetes. REVIEW OF SYSTEMS: Unable to obtain due to the fact that the patient is sedated on vent. PHYSICAL EXAMINATION: VITAL SIGNS: Temperature 98.1, pulse 99, respiratory rate 16, and blood pressure 114/77. GENERAL: Sedated. SKIN: Left hip pain and redness. HEENT: Anicteric. Oropharynx appears to be clear. LUNGS: Clear. HEART: Regular rate and rhythm. Normal S1 and S2. ABDOMEN: Soft, distended. MUSCULOSKELETAL: Unable to fully assess due to sedation. NEUROLOGIC: Sedated, unable to assess. PSYCHIATRIC: Unable to assess due to sedation. LABORATORY DATA: White count 7.66, hemoglobin 7.2, and platelet count 189. Creatinine 1.21. Blood sugar was 0.8. Sodium 133, sugar 146. AST is 172, ALT 82, and albumin 2.2. CT shows left hip anasarca versus cellulitis. ASSESSMENT AND PLAN: 1. Left hip cellulitis. It does not seem like it is involving the joint. The patient has some pain when I move her left hip. The patient will receive cefepime and IV vancomycin. We will continue to monitor. The patient also received a dose of IV Lasix for anasarca. We will need to monitor given acute kidney injury. 2. Hyponatremia, likely due to cirrhosis for monitor. 3. Anemia. We will check her iron studies. We will repeat hemoglobin again tomorrow. 4. Cirrhosis with ascites and hypoalbuminemia. We will check her INR in the morning. 5. Diabetes. We will put her on sliding scale. 6. Gastrointestinal and deep vein thrombosis prophylaxis due to cirrhosis and anemia. Yiching MD MONALISA Centeno /[id number] MTDPatricia
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
== END 2019-12-06 18:38 | disposition left against medical advice (07) | DRG 603 ==
LOC: ER 10:08 → ERHOLD 14:29 → MED/SURG2 16:01
PROVIDERS: ADMIT Internal Medicine; ATTEND Internal Medicine
DX: L03.116 Cellulitis of left lower limb (principal); E87.1 Hypo-osmolality and hyponatremia; K70.30 Alcoholic cirrhosis of liver without ascites; E11.9 Type 2 diabetes mellitus without complications; I10 Essential (primary) hypertension; D64.9 Anemia, unspecified; E88.09 Other disorders of plasma-protein metabolism, not elsewhere classified; E03.9 Hypothyroidism, unspecified
CPT/HCPCS: 36415; 80053; 82948; 83880; 84443; 84702; 85025; 99284; J0692; J1885; J1940; J3370; J7050

== ENCOUNTER 2019-12-17 14:42 | Inpatient (IN) | payer BC, MEDICARE, OTHER ==
[~2019-12-17] VITALS: Ht 149.9 cm; Wt 81.6 kg
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
[2019-12-17] MEDS ORDERED: SODIUM CHLORIDE 0.9% 1000ML 1,000 ML IV STA (14:47)
--- NOTE | 2019-12-17 14:50 | Emergency Department Note ---
History of Present Illnes History of Present Illness Chief Complaint: General Medicine Complaints History of Present Illness This is a 39 year old female . Historian: Patient Arrival Mode: Car Electric Bath Attendant Required: No Onset (how long ago): day(s) (4) Location: right sided abd Quality: painful Radiation: abdomen Severity: moderate Onset quality: gradual Duration (how long): day(s) (4) Timing of current episode: intermittent Progression: worsening Chronicity: new Relieving factors: none Exacerbating factors: movement Treatments prior to arrival: none Past Medical/Family History Physician Review I have reviewed the patient's past medical and family history. Any updates have been documented here. Past Medical History Recent Fever: No Clinical Suspicion of Infectio: No New/Unexplained Change in Ment: No Past Medical History: Hypertension, Diabetes, Hypothyroidism, Liver Disease, Anemia, Anxiety Other Medical History: x2, ETOH ABUSE CIRRHOSIS Past Surgical History: Social History Any Illegal Drug Use: No TB Exposure/Symptoms: No Physically hurt or threatened: No Family History Family history of heart diseas: Yes Other Last Tetanus: UNKNOWN Any Pre-Existing Lines (PICC,: No Is patient up to date on immun: No Review of Systems ROS Narrative PATIENT IN FROM THE [facility] FOR BLOOD TRANSFUSION. PATIENT STATES THAT SHE HAS HAD ANEMIA IN THE PAST. RECENTLY DIAGNOSED WITH CIRRHOSIS, AND STATES THAT UNTIL 3 MONTHS AGO SHE DRANK A PINT OF VODKA PER DAY. PATIENT ALSO WITH COMPLAINTS OF ABDOMINAL PAIN RATES 8/10. ARRIVES WITH SOB AND GENERALIZED WEAKNESS Review of Systems Constitutional: weakness EENTM: no symptoms Cardiovascular: edema (LOWER EXT) Respiratory: dyspnea, dyspnea on exertion Gastrointestinal: abdominal pain (RIGHT UPPER) Genitourinary: no symptoms Musculoskeletal: no symptoms Neurological: weakness Psychological: no symptoms Endocrine: no symptoms Hematological/Lymphatic: anemia Review of other systems All other systems reviewed and negative. Physical Exam Related Data Allergies: Coded Allergies: No Known Allergies (Unverified , 01/30/19) Triage Vital Signs Vital Signs Date Time Temp Pulse Resp B/P (MAP) Pulse Ox O2 Delivery O2 Flow Rate FiO2 12/17/19 14:43 97.6 95 20 153/90 96 Vital signs reviewed: Yes Physical Exam CONSTITUTIONAL Constitutional: well-developed, obese, ill appearing HENT HENT: normocephalic, atraumatic, oropharynx clear/moist, nose normal HENT L/R: left ext ear normal, right ext ear normal EYES Eyes: PERRL, conjunctivae normal NECK Neck: ROM normal, supple PULMONARY Pulmonary: effort normal, breath sounds normal CARDIOVASCULAR Cardiovascular: regular rhythm, LLE edema (MILDS PITTING EDEMA NOTED TO MERA), RLE edema GASTROINTESTINAL GENITOURINARY SKIN Skin: warm, dry, jaundiced MUSCULOSKELETAL Musculoskeletal: edema NEUROLOGICAL Neurological: alert, oriented x 3 PSYCHOLOGICAL Results Laboratory Lab results reviewed: Yes Imaging Imaging results reviewed: Yes Procedures 12 Lead ECG Interpretation Electric Bath Attendant: Interpreted by ED physician ([place]) Date: December 17, 2019 Time: 14:47 Prior CANDY SEPARATOR ENROBING tracings: reviewed Rhythm: sinus rhythm Clinical Impression: normal ECG Critical Care Time Subsequent provider I assumed direction of critical care for this patient from another provider of my specialty. Assessment & Plan Reassessment Reassessment time: 15:58 Reassessment Awaiting all results. IVF running and lactalose given. Discussed admission with patient ans answered all questions Assessment & Plan Final Impression: (1) Anemia (2) Liver cirrhosis (3) Alcoholic liver disease (4) Ascites due to alcoholic cirrhosis Assessment & Plan Discussed patient presentation,exam and plan of care with Dr Obando. Will get blood work, EKG, Ct scans, and urine to R/O anemia, liver and kidney abnormality. CT to R/O blood clots and abd CT to check pancreases IVF running 1700- Discussed all results with Dr Obando and patient. Will admit to Dr Vu. Depart Disposition: ADMITTED Last Vital Signs Date Time Temp Pulse Resp B/P (MAP) Pulse Ox O2 Delivery O2 Flow Rate FiO2 12/17/19 14:43 97.6 95 20 153/90 96 Home Meds Reported Medications Venlafaxine Hcl (VENLAFAXINE HCL) 37.5 Mg Tablet, 37.5 MG PO DAILY 01/31/19 Levothyroxine Sodium (LEVOTHYROXINE SODIUM) 50 Mcg Tablet, 50 MCG PO DAILY 01/31/19 Metformin Hcl (METFORMIN HCL) 1,000 Mg Tablet, 1000 UNIT PO BID 01/31/19 Buspirone Hcl (BUSPIRONE HCL) 7.5 Mg Tablet, 7.5 MG PO BID 01/31/19 Losartan Potassium (LOSARTAN POTASSIUM) 25 Mg Tablet, 25 MG PO DAILY 01/31/19 Lisinopril (LISINOPRIL) 10 Mg Tablet, 10 MG PO DAILY 01/31/19 Pioglitazone Hcl (PIOGLITAZONE HCL) 45 Mg Tablet, 45 MG PO DAILY 01/31/19 Clonazepam (CLONAZEPAM) 0.5 Mg Tablet, 0.5 MG PO BID PRN for AGITATION 01/31/19 IFEANYI PIERCE NP December 17, 2019 14:50
[2019-12-17 14:59] LABS: BASOPHILS % 0.7 % (0.0-1.0); EOSINOPHILS # (AUTO) 0.2 (0.0-0.4); LYMPHOCYTES # (AUTO) 0.7 (1.0-3.2); LYMPHOCYTES % 22.5 % (18.0-39.1); MEAN CORPUSCULAR HEMOGLOBIN 33.2 pg (28-32); MEAN CORPUSCULAR VOLUME 100.5 fL (81-99); MONOCYTES # (AUTO) 0.2 (0.2-0.8); MONOCYTES % 7.3 % (4.4-11.3); NEUTROPHILS # (AUTO) 1.9 (2.1-6.9); NEUTROPHILS % 64.2 % (38.7-80.0); PLATELET COUNT 130 x10e3/uL (140-360); RED BLOOD COUNT 2.11 x10e6/uL (3.6-5.1); RED CELL DISTRIBUTION WIDTH 13.7 % (11.7-14.4)
[2019-12-17 15:06] LABS: HEMATOCRIT 21.2 % (34.2-44.1)
[2019-12-17 15:07] LABS: INR 1.04; PROTHROMBIN TIME 14.2 seconds (11.9-14.5)
[2019-12-17 15:08] LABS: PARTIAL THROMBOPLASTIN TIME 37.9 seconds (23.8-35.5)
[2019-12-17 15:15] LABS: ALANINE AMINOTRANSFERASE 68 IU/L (0-55); ALBUMIN 2.2 g/dL (3.5-5.0); ALBUMIN/GLOBULIN RATIO 0.6 (0.8-2.0); ALKALINE PHOSPHATASE 123 IU/L (40-150); ANION GAP 13.9 mmol/L (8-16); BLOOD UREA NITROGEN 26 mg/dL (7-26); BUN/CREATININE RATIO 20 (6-25); CALCIUM 8.3 mg/dL (8.4-10.2); CARBON DIOXIDE 23 mmol/L (22-29); CHLORIDE 106 mmol/L (98-107); CREATINE KINASE 1526 IU/L (29-168); CREATININE, SERUM 1.29 mg/dL (0.57-1.11); EST GLOMERULAR FILTRATION RATE 46 ML/MIN (60-); GLUCOSE 173 mg/dL (74-118); LIPASE 54 U/L (8-78); POTASSIUM 3.9 mmol/L (3.5-5.1); SODIUM 139 mmol/L (136-145)
[2019-12-17] MEDS ORDERED: LACTULOSE SYRUP 20 GM/30 ML UDC PO ONE (15:15)
[2019-12-17] MEDS ORDERED: SODIUM CHLORIDE 0.9% 250ML 250 ML IV ONE (15:15)
[2019-12-17 16:03] LABS: PREGNANCY TEST, URINE NEGATIVE (NEGATIVE)
[2019-12-17 16:04] LABS: BILIRUBIN,URINE NEGATIVE (NEGATIVE); CLARITY,URINE SL CLOUDY (CLEAR); COLOR,URINE YELLOW (YELLOW); KETONES,URINE NEGATIVE (NEGATIVE); LEUKOCYTE ESTERASE ,URINE NEGATIVE (NEGATIVE); NITRITE,URINE NEGATIVE (NEGATIVE); PROTEIN,URINE DIPSTICK >=300 (NEGATIVE); URINE UROBILINOGEN 1 mg/dL (0.2 - 1)
[2019-12-17 16:21] LABS: BACTERIA,URINE MANY /HPF; EPITHELIAL CELLS,URINE MODERATE /LPF
--- NOTE | 2019-12-17 17:04 | NUR ---
Received call from blood bank. Informed that patient has a positive antibody screen and the blood will not be ready for approximately 4 hours. Relayed message to ER providers.
[2019-12-17] MEDS ORDERED: SODIUM CHLORIDE FLUSH 10 ML SYR INJ PRN (17:15)
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
--- NOTE | 2019-12-17 18:22 | NUR ---
received patient from ER via wheelchair. pt is alert, no s/s of distress noted. pt ambulatory and performs ADL's independently. call light placed within reach, pt oriented to room.
--- NOTE | 2019-12-17 18:38 | Diagnostic Imaging Report ---
EXAMINATION: CT of the chest, abdomen and pelvis with contrast. TECHNIQUE: Helical CT images of the chest, abdomen and pelvis were performed from the lung apices to the lesser trochanters after the intravenous administration of 100 cc of Isovue 300 and the oral administration of none. Coronal and sagittal reformatted images were obtained. Dose modulation, iterative reconstruction, and/or weight based adjustment of the mA/kV was utilized to reduce the radiation dose to as low as reasonably achievable. COMPARISON: None. CLINICAL HISTORY:Abdominal pain, distention DISCUSSION: CHEST: LINES/TUBES: None. LUNGS AND AIRWAYS: The lungs and airways are normal with no focal abnormality demonstrated. PLEURA: The pleural spaces are clear. HEART AND MEDIASTINUM: The thyroid gland is normal. The heart and pericardium are within normal limits. Diaphragmatic hernia anteriorly containing mesenteric fat and fluid. LYMPH NODES: No significant mediastinal, hilar or axillary lymphadenopathy is seen. BONES AND SOFT TISSUES: No bony destructive lesions. No soft tissue abnormalities. ABDOMEN/PELVIS: HEPATOBILIARY:Cirrhotic liver morphology. No enhancing lesion. SPLEEN: Splenomegaly. PANCREAS: No focal masses or ductal dilatation. ADRENALS: No adrenal nodules. KIDNEYS/URETERS: No hydronephrosis, stones, or solid mass lesions. PELVIC ORGANS/BLADDER: The bladder is normal. PERITONEUM/RETROPERITONEUM: Large volume ascites. LYMPH NODES: No intra-abdominal,retroperitoneal, pelvic or inguinal lymphadenopathy. VESSELS: Mesenteric varicosities. GI TRACT: No distention or wall thickening. BONES AND SOFT TISSUES: No bony destructive lesion. Anterior abdominal hernia containing mesenteric fluid. Soft tissue anasarca. IMPRESSION: Liver cirrhosis with portal hypertension manifested by large volume ascites, splenomegaly and mesenteric varicosities. Soft tissue anasarca. Signed by: Dr. Ezequiel Fragoso M.D. on 12/17/2019 6:35 PM
--- NOTE | 2019-12-17 19:00 | NUR ---
RECEIVED PATIENT IN BEDSIDE SHIFT REPORT. PATIENT RESTING IN BED AT THIS TIME. PAIN 8/10 TO ABDOMEN, WHICH IS VERY DISTENDED. NO OTHER S&S OF DISTRESS NOTED. BED LOCKED IN LOWEST POSITION, SIDE RAILS UPX2, CALL LIGHT IN REACH.
[2019-12-17 20:00] VITALS: BP 152/97
[2019-12-17 20:37] VITALS: BP 152/97
[2019-12-17] MEDS ORDERED: SODIUM CHLORIDE 0.9% 50ML 50 ML ONE (21:15)
[2019-12-17] MEDS ORDERED: IOPAMIDOL 370 MG/ML 200 ML INFUS..BTL INJ ONE (21:15)
[2019-12-17] MEDS ORDERED: CEPHALEXIN500 MG PO (21:40)
[2019-12-17] MEDS ORDERED: FUROSEMIDE40 MG PO (21:40)
[2019-12-17] MEDS ORDERED: PROTONIX20 MG PO (21:40)
[2019-12-17] MEDS ORDERED: GLIPIZIDE5 MG PO (21:40)
[2019-12-17] MEDS: PROPRANOLOL HCL 40 MG TAB PO SCH (22:55)
[2019-12-17] MEDS: CLONAZEPAM 0.5 MG TAB PO PRN (22:56)
[2019-12-18] VITALS (12 sets, daily range): BP systolic 115–148; BP diastolic 63–94
[2019-12-18 04:12] LABS: CREATINE KINASE 1353 IU/L (29-168)
[2019-12-18 06:25] LABS: ANION GAP 13.7 mmol/L (8-16); CALCIUM 7.9 mg/dL (8.4-10.2); CREATININE, SERUM 1.26 mg/dL (0.57-1.11); POTASSIUM 3.7 mmol/L (3.5-5.1)
[2019-12-18 07:11] LABS: BASOPHILS % 0.6 % (0.0-1.0); EOSINOPHILS # (AUTO) 0.2 (0.0-0.4); EOSINOPHILS % 5.2 % (0.0-6.0); LYMPHOCYTES # (AUTO) 0.7 (1.0-3.2); LYMPHOCYTES % 20.7 % (18.0-39.1); MEAN CORPUSCULAR HGB CONC 32.2 g/dL (31-35); MEAN CORPUSCULAR VOLUME 102.4 fL (81-99); MONOCYTES # (AUTO) 0.3 (0.2-0.8); MONOCYTES % 9.3 % (4.4-11.3); NEUTROPHILS # (AUTO) 2.1 (2.1-6.9); NEUTROPHILS % 63.9 % (38.7-80.0); PLATELET COUNT 113 x10e3/uL (140-360); RED BLOOD COUNT 2.06 x10e6/uL (3.6-5.1); RED CELL DISTRIBUTION WIDTH 13.6 % (11.7-14.4)
[2019-12-18 07:30] LABS: HEMATOCRIT 21.1 % (34.2-44.1); HEMOGLOBIN 6.8 g/dL (12.0-16.0)
[2019-12-18] MEDS: CLONAZEPAM 0.5 MG TAB PO PRN ×2 (09:29→21:33)
[2019-12-18] MEDS: PROPRANOLOL HCL 40 MG TAB PO SCH ×2 (09:30→17:59)
--- NOTE | 2019-12-18 09:40 | Diagnostic Imaging Report ---
EXAMINATION: CHEST SINGLE (PORTABLE) INDICATION: Shortness of breath COMPARISON: None FINDINGS: LINES/TUBES:None LUNGS:The lungs are moderately inflated. No focal consolidation or pulmonary edema. PLEURA:No pleural effusion or pneumothorax. MEDIASTINUM:The cardiomediastinal silhouette appears normal in size and shape. BONES/SOFT TISSUES:No acute osseous injury. ABDOMEN:No free air under the diaphragm. IMPRESSION: No focal pneumonia or pulmonary edema. Signed by: Soila Toribio MD on 12/18/2019 9:36 AM
[2019-12-18 10:01] LABS: CREATINE KINASE MB 18.1 ng/mL (0-5.0)
--- NOTE | 2019-12-18 10:39 | NUR ---
SPOKE WITH LAB REGARDING STATUS OF BLOOD FOR TRANSFUSION, THEY STATE THEY WILL CALL BACK.
--- NOTE | 2019-12-18 11:17 | Diagnostic Imaging Report ---
EXAM: Complete Abdominal Ultrasound INDICATION: ^ASCITES COMPARISON: CT abdomen pelvis 12/17/2019 TECHNIQUE: Transverse and longitudinal images of the abdomen were obtained for the purpose of identifying ascites. FINDINGS: Abdominal sonography was performed. Sonography reveals large ascites in all 4 quadrants of the abdomen. The volume of ascites is unchanged when compared to the previous CT scan from yesterday. IMPRESSION: Large ascites. Signed by: Jay Almonte MD on 12/18/2019 11:13 AM
[2019-12-18] MEDS: NICOTINE 21 MG/EA PATCH TOP SCH (14:06)
--- NOTE | 2019-12-18 14:14 | NUR ---
DR. AVILA AT BEDSIDE, STATES PT CAN GO DOWN FOR IR CONSULT FOR PARACENTESIS. WILL TRANSFUSE BLOOD AFTER PROCEDURE.
--- NOTE | 2019-12-18 14:38 | NUR ---
PT LEFT ROOM FOR PARACENTESIS WITH DIRECTOR DIGITAL COMMUNICATIONS, LEFT IN STABLE CONDITION.
[2019-12-18] MEDS ORDERED: LACTULOSE SYRUP 20 GM/30 ML UDC PO PRN (14:45)
--- NOTE | 2019-12-18 15:48 | Diagnostic Imaging Report ---
PROCEDURE: Ultrasound-guided paracentesis Procedural Personnel Attending physician(s): Soila Toribio MD Pre-procedure diagnosis: Ascites Post-procedure diagnosis: Unchanged Indication: Ascites with pain or pressure symptoms Additional clinical history: None Complications: No immediate complications. IMPRESSION: Ultrasound-guided paracentesis with drainage of 6000 mL of serous fluid. Plan: Resume care by clinical team. PROCEDURE SUMMARY: - Limited abdominal ultrasound - Ultrasound-guided paracentesis - Additional procedure(s): None PROCEDURE DETAILS: Pre-procedure Consent: Informed consent for the procedure including risks, benefits and alternatives was obtained and time-out was performed prior to the procedure. Preparation: The site was prepared and draped using maximal sterile barrier technique including cutaneous antisepsis. Anesthesia/sedation Level of anesthesia/sedation: None Initial abdominal ultrasound Initial abdominal ultrasound was performed. Findings: Large ascites. A safe window for paracentesis was identified. Paracentesis Local anesthesia was administered. The peritoneal cavity was accessed and fluid return confirmed position. Ascites was drained. The catheter was then removed, and a sterile bandage was applied. Paracentesis access technique: Real-time ultrasound guidance. Catheter placed: 5Fr Yueh Post-drainage ultrasound: Small ascites Additional Details Additional description of procedure: None Equipment details: None Specimens removed: Abdominal fluid Estimated blood loss (mL): Minimal (<10cc) Standardized report: [email or web address] Attestation Signer name: Soila Toribio MD I attest that I was present for the entire procedure. I reviewed the stored images and agree with the report as written. Signed by: Soila Toribio MD on 12/18/2019 3:44 PM
[2019-12-18] MEDS ORDERED: SODIUM CHLORIDE 0.9% 250ML 250 ML ONE ×2 (18:17→21:28)
--- NOTE | 2019-12-18 18:20 | NUR ---
PT'S BLOOD TRANSFUSION STARTED. VERIFYING NURSE AT BEDSIDE.
--- NOTE | 2019-12-18 19:00 | NUR ---
RECEIVED PATIENT IN BEDSIDE SHIFT REPORT. PATIENT RESTING IN BED AT THIS TIME. BLOOD RUNNING AT 125ML/HR. NO S&S OF DISTRESS NOTED. BED LOCKED IN LOWEST POSITION, SIDE RAILS UPX2, CALL LIGHT IN REACH.
--- NOTE | 2019-12-18 19:12 | NUR ---
BEDSIDE REPORT GIVEN TO AQUATIC HABITAT BIOLOGIST NURSE; PT RECEIVING BLOOD TRANSFUSION, NO SIGNS OF DISTRESS, IN STABLE CONDITION.
[2019-12-18] MEDS ORDERED: DEXTROSE 50% SYRINGE 50 ML IV PRN (20:00)
[2019-12-18 20:27] LABS: LYMPHOCYTES,BODY FLUID 23 %; MONO/MACROPHG,BODY FLUID 70 %; OTHER CELLS,BODY FLUID 7 %
[2019-12-18 20:49] LABS: BODY FLUID APPEARANCE CLOUDY; BODY FLUID COLOR STRAW; BODY FLUID TYPE PERITONEAL
[2019-12-18 21:00] LABS: RBC,BODY FLUID 699 cells/uL; WBC,BODY FLUID 53 cells/uL
[2019-12-18] MEDS: INSULIN REGULAR, HUMAN 100 UNIT/1 ML 3ML VIAL SQ SCH (21:31)
--- NOTE | 2019-12-18 21:41 | History and Physical ---
PCP: [facility]. CHIEF COMPLAINT: Abdominal distention and pain due to cirrhosis. HISTORY OF PRESENT ILLNESS: This is a 39-year-old female with past medical history of hypertension, diabetes, thyroid disease, cirrhosis, anemia, and anxiety. She reports having symptoms of shortness of breath, abdominal distention, and nausea with increased bilateral lower extremity edema for the past three weeks. She reports going to her PCP at [facility], but instructed her to go to the ER for further evaluation. She denies any chest pain, cough, fever, chills, melena, dysuria, change in LOC. She reports having occasional confusion. She reports that she has been taking her medications as prescribed. She reports last use of cocaine is about three days ago and has not using. She reports she has been tasting alcohol, but not really drinking heavily, last use of cocaine was three days ago. In the ER, her hemoglobin is 7.0, then went down to 6.8, creatinine 1.29. Abdominal ultrasound with large ascites. We will admit the patient for further management. PAST MEDICAL HISTORY: 1. Hypertension. 2. Diabetes type 2. 3. Hypothyroidism. 4. Liver cirrhosis. 5. Anemia of chronic diseases. 6. Anxiety. PAST SURGICAL HISTORY: Had two C sections. FAMILY MEDICAL HISTORY: She reports mother had diabetes and does not know of her father's medical status. SOCIAL HISTORY: She reports cutting back smoking from one pack a day to half-a-pack, she quit drinking heavily about pint a day about 3 months ago, but still has taste of alcohol. She reports using cocaine, last use was three days ago. ALLERGIES: NO KNOWN DRUG ALLERGIES. REVIEW OF SYSTEMS: GENERAL: Fatigue. HEENT: No head trauma. LUNGS: Shortness of breath. CARDIOVASCULAR: No chest pain or palpitation. GI: Distention due to large ascites. NEUROLOGIC: Alert and awake. SKIN: No rash. MUSCULOSKELETAL: Lower extremity edema. PHYSICAL EXAMINATION: VITAL SIGNS: Temperature is 97.9, pulse is 69, respirations 18, blood pressure 136/80, pulse ox 99% on room air. GENERAL: Fatigue. HEENT: Normocephalic, atraumatic. NECK: Supple. LUNGS: With decreased breath sounds. CARDIOVASCULAR: Regular rate and rhythm. GI: Distended with ascites, large. NEUROLOGIC: Alert, awake, and oriented x3. MUSCULOSKELETAL: Moves all extremities, +3 edema in the lower extremities. SKIN: Dry. PSYCH: Calm. LABORATORY DATA: WBC 3.24, hemoglobin 6.8, hematocrit 21.1, and platelet is 113. Sodium 141, potassium 3.7, BUN 25, creatinine 1.26, estimated GFR less than 47, calcium 7.9, AST 125, ALT 68, ammonia 149. CK 1429. Troponin x3 negative. BNP 71.5. Albumin 2.2, lipase 54. PT 14.2, INR 1.04, APTT 37.9. Urine is yellow, slightly cloudy with 2+ blood, negative for nitrites, leukocyte esterase, wbc's. IMAGING: CT abdomen and pelvis shows liver cirrhosis with portal hypertension, manifested by a large volume ascites. Splenomegaly and mesenteric varicosities, soft tissue anasarca. CT abdominal ultrasound shows large ascites. Chest x-ray, no focal pneumonia or pulmonary edema. IMPRESSION: 1. Abdominal pain and distention due to large ascites. IR was consulted for paracentesis. We will continue with Lasix and Aldactone. 2. Acute on chronic anemia. Hemoglobin 6.8. We will transfuse 2 units of PRBCs. 3. Hypertension. We will start on propranolol 20 mg t.i.d. 4. Diabetes type 2. We will resume glipizide and sliding scale insulin as needed. 5. Rhabdomyolysis. Elevated CK 1429, status post IV fluids in the ER. We will monitor trend. 6. Hypothyroidism. We will resume Synthroid 50 mcg daily. 7. History of liver cirrhosis. Resume lactulose 20 mg b.i.d. and propranolol. LFTs are elevated. 8. Anxiety. We will resume Klonopin p.o. b.i.d. 9. Tobacco use. Discussed cessation. Will give nicotine patch p.r.n. daily. 10. GI and DVT prophylaxis. Protonix and SCDs. No chemical anticoagulation due to anemia. PLAN: To transfuse 2 units of PRBCs, we will consult IR for paracentesis. Dictated by GORDON Miller Cheri Vu MD MY/MODL /[id number] Pt seen and examined. Agree with the findings and plan as documented by GORDON Broussard. JANKI
[2019-12-18] MEDS: ONDANSETRON HCL INJ 2MG/ML 2ML 2 MG/ML VIAL IV PRN (23:55)
--- NOTE | 2019-12-18 23:55 | NUR ---
PATIENT AMBULATED TO RESTROOM FOR FIRST TIME SINCE PARACENTESIS EARLIER TODAY, NAUSEA RESULTED. ZOFRAN ADMINISTERED. PATIENT VOMITED 200ML. STATES NAUSEA WENT AWAY AFTER VOMITING.
[2019-12-19] VITALS (13 sets, daily range): BP systolic 101–148; BP diastolic 62–92
--- NOTE | 2019-12-19 | NUR ---
BLOOD STARTED AT 75ML/HR AT THIS TIME. VITALS STABLE. NURSE CONTINUOUS PICKLING LINE PICKLER HELPER DELILAH, RN AT 2350.
--- NOTE | 2019-12-19 00:25 | NUR ---
L AC 20G IV BEGAN TO INFILTRATE WITH SMALL AMOUNT OF SWELLING AT 0015. BLOOD STOPPED. NEW IV OBTAINED AT 0025 TO R FA 20G, FIRST ATTEMPT. BLOOD RESTARTED. L AC 20G REMOVED, CATHETER TIP INTACT. PRESSURE DRESSING APPLIED.
[2019-12-19] MEDS: LEVOTHYROXINE SODIUM 50 MCG TAB PO SCH (06:15)
[2019-12-19 06:32] LABS: BASOPHILS % 0.7 % (0.0-1.0); EOSINOPHILS # (AUTO) 0.1 (0.0-0.4); EOSINOPHILS % 2.6 % (0.0-6.0); HEMATOCRIT 28.3 % (34.2-44.1); HEMOGLOBIN 9.4 g/dL (12.0-16.0); LYMPHOCYTES # (AUTO) 0.9 (1.0-3.2); LYMPHOCYTES % 19.9 % (18.0-39.1); MEAN CORPUSCULAR HEMOGLOBIN 32.9 pg (28-32); MEAN CORPUSCULAR HGB CONC 33.2 g/dL (31-35); MONOCYTES # (AUTO) 0.3 (0.2-0.8); MONOCYTES % 7.1 % (4.4-11.3); NEUTROPHILS # (AUTO) 3.2 (2.1-6.9); NEUTROPHILS % 69.5 % (38.7-80.0); PLATELET COUNT 112 x10e3/uL (140-360); RED BLOOD COUNT 2.86 x10e6/uL (3.6-5.1); RED CELL DISTRIBUTION WIDTH 14.2 % (11.7-14.4)
--- NOTE | 2019-12-19 07:00 | NUR ---
BEDSIDE SHIFT REPORT RECEIVED FROM CARPENTER/LABOR NURSE. PT AWAKE, ALERT, AMBULATING IN ROOM, NO SIGNS OF DISTRESS. NO COMPLAINTS AT THIS TIME.
[2019-12-19 07:13] LABS: ALBUMIN/GLOBULIN RATIO 0.5 (0.8-2.0); CALCIUM 7.9 mg/dL (8.4-10.2); CREATININE, SERUM 1.21 mg/dL (0.57-1.11)
[2019-12-19] MEDS: INSULIN REGULAR, HUMAN 100 UNIT/1 ML 3ML VIAL SQ SCH ×4 (07:30→20:43)
[2019-12-19] MEDS ORDERED: FUROSEMIDE 40 MG TAB PO SCH (09:00)
[2019-12-19] MEDS: SPIRONOLACTONE 25 MG TAB PO SCH (10:56)
[2019-12-19] MEDS: PANTOPRAZOLE SOD 40 MG TABEC PO SCH (10:57)
[2019-12-19] MEDS: GLIPIZIDE 5 MG TAB PO SCH (10:57)
[2019-12-19] MEDS: FUROSEMIDE 40 MG TAB PO SCH (10:58)
[2019-12-19] MEDS: PROPRANOLOL HCL 40 MG TAB PO SCH ×2 (10:58→17:00)
[2019-12-19] MEDS: NICOTINE 21 MG/EA PATCH TOP SCH (11:03)
[2019-12-19] MEDS ORDERED: FUROSEMIDE INJ 10 MG/ML 4 ML VIAL IV ONE (13:15)
[2019-12-19] MEDS ORDERED: ALBUMIN 25% 25GM 100ML 0.25 GM/ML BTL IV ONE (14:00)
--- NOTE | 2019-12-19 14:00 | NUR ---
spoke with Dr. Vu who states we will hold off on performing another paracentesis. will continue to monitor.
[2019-12-19] MEDS ORDERED: ALBUMIN 25% 25GM 100ML 100 ML IV ONE (14:30)
[2019-12-19] MEDS: LACTULOSE SYRUP 20 GM/30 ML UDC PO SCH ×2 (15:31→17:00)
[2019-12-19] MEDS ORDERED: SODIUM CHLORIDE 0.9% 250ML 250 ML ONE (15:43)
[2019-12-19] MEDS: CLONAZEPAM 0.5 MG TAB PO PRN (18:12)
[2019-12-19] MEDS: TRAMADOL HCL 50 MG TAB PO PRN (18:13)
--- NOTE | 2019-12-19 19:00 | NUR ---
RECEIVED PATIENT IN BEDSIDE SHIFT REPORT. PATIENT NAUSEATED AND DRY HEAVING, WILL MEDICATE WITH ZOFRAN. NO OTHER S&S OF DISTRESS NOTED. ABDOMINAL PAIN REPORTED TO BE IMPROVING. BED LOCKED IN LOWEST POSITION, SIDE RAILS UPX2, CALL LIGHT IN REACH.
[2019-12-19] MEDS: ONDANSETRON HCL INJ 2MG/ML 2ML 2 MG/ML VIAL IV PRN (19:14)
--- NOTE | 2019-12-19 20:21 | Progress Note ---
DATE: 12/19/2019 CONSULTANTS: Interventional Radiology CHIEF COMPLAINT: Abdominal distention and pain and generalized edema. SUBJECTIVE: The patient is seen in the room, reporting chills and feeling cold. She is status post paracentesis yielding 6 L per IR. She reports abdominal distention has not improved much. She has received 2 units of PRBCs and feels like her lower extremities have increased in swelling. PHYSICAL EXAMINATION: VITAL SIGNS: Temperature 98.2, pulse is 72, respirations 20, blood pressure 136/92, and pulse ox is 100% on room air. GENERAL: Fatigue, chills. HEENT: Normocephalic, atraumatic. NECK: Supple. LUNGS: Decreased breath sounds. CARDIOVASCULAR: Regular rate and rhythm. GI: Distended with ascites. No abdominal pain. NEUROLOGIC: Alert, awake, and oriented x3. MUSCULOSKELETAL: Moves all extremities, +3 edema in the lower extremities. SKIN: Dry with healed rash generalized. PSYCH: Calm. LABORATORY DATA: WBCs 4.53, hemoglobin 9.4, hematocrit 28.3, and platelets 112. Sodium 141, potassium 4.0, CO2 of 24, BUN is 23, creatinine 1.21, estimated GFR is 50, glucose 157. AST 118 and ALT 70. CK 760. Albumin 2.0. Peritoneal fluid, wbc's 53, rbc's 699, total cell count 100, monocytes 70, and albumin 0.6. IMAGING DATA: Chest x-ray, no focal pneumonia or pulmonary edema noted. IMPRESSION: 1. Abdominal pain with distention due to large ascites. IR was consulted, status post paracentesis yielding 6 L, still with not much improvement. We will continue with Lasix and Aldactone. We will give albumin x1, and may need another paracentesis in a day or so. 2. Arzpz-ap-abvtsbb anemia, status post 2 units of PRBC transfusion. Hemoglobin is 9.4 today. We will continue to monitor closely. 3. Hypertension. We will continue propranolol 20 mg b.i.d. 4. Diabetes type 2. We will resume glipizide and sliding scale insulin as needed. 5. Rhabdomyolysis. CK improved to 760 today. We will continue to trend. 6. Bilateral lower extremity edema, likely due to cirrhosis. We will give Lasix IV x1. No signs of infection noted. 7. Thrombocytopenia. Platelets are 112. We will continue to monitor closely, likely due to cirrhosis. 8. Hypothyroidism. Continue Synthroid 50 mcg daily. 9. History of liver cirrhosis. Resume lactulose 20 mg b.i.d. and propranolol. Noted LFT elevations. 10. Acute kidney injury versus hepatorenal syndrome. Creatinine 1.2. We will continue to monitor closely. 11. Anxiety. Resume Klonopin p.o. b.i.d. p.r.n. 12. Tobacco use. Cessation discussed. Nicotine patch p.r.n. daily. 13. Cocaine abuse. Cessation discussed. 14. GI and DVT prophylaxis, Protonix and SCDs. No chemical anticoagulation due to anemia. PLAN: To repeat labs in the morning, diurese, give albumin IV x1, and consider repeating paracentesis on Sunday. Dictated by GORDON Miller Cheri Vu MD MY/MODL /[id number] Pt seen and examined, low grade fever noted, check blood cultures x 2, UA and CXR. Agree with the findings and plan as documented by GORDON Broussard. JANKI
--- NOTE | 2019-12-19 20:41 | NUR ---
PAGED MD AVILA CONCERNING FEVER OF 100.2, RECHECKED 100.0. AWAITING CALL BACK.
[2019-12-19] MEDS ORDERED: ACETAMINOPHEN 325 MG TAB PO PRN (21:00)
[2019-12-20] VITALS (9 sets, daily range): BP systolic 101–134; BP diastolic 55–78
--- NOTE | 2019-12-20 00:20 | Diagnostic Imaging Report ---
EXAMINATION: CHEST SINGLE (PORTABLE) INDICATION: Fever COMPARISON: Chest x-ray 12/18/2019 FINDINGS: Portable AP technique. TUBES and LINES: None. LUNGS: Normal lung volumes. Lungs are clear. No consolidations. PLEURA: No pleural effusion or pneumothorax. HEART AND MEDIASTINUM: The cardiomediastinal silhouette is unremarkable. BONES AND SOFT TISSUES: No acute osseous lesion. Soft tissues are unremarkable. UPPER ABDOMEN: No free air under the diaphragm. IMPRESSION: No acute thoracic radiographic abnormality although sensitivity for airspace disease is limited due to exam technique. Signed by: Shivam Harding DO on 12/20/2019 12:17 AM
[2019-12-20 02:18] LABS: CLARITY,URINE CLOUDY (CLEAR); COLOR,URINE AMBER (YELLOW)
[2019-12-20 02:19] LABS: BILIRUBIN,URINE NEGATIVE (NEGATIVE); KETONES,URINE NEGATIVE (NEGATIVE); LEUKOCYTE ESTERASE ,URINE NEGATIVE (NEGATIVE); NITRITE,URINE NEGATIVE (NEGATIVE); PROTEIN,URINE DIPSTICK >=300 (NEGATIVE); URINE UROBILINOGEN 0.2 mg/dL (0.2 - 1)
[2019-12-20 02:20] LABS: BACTERIA,URINE MANY /HPF; EPITHELIAL CELLS,URINE MANY /LPF
[2019-12-20] MEDS: TRAMADOL HCL 50 MG TAB PO PRN (02:21)
[2019-12-20] MEDS: ONDANSETRON HCL INJ 2MG/ML 2ML 2 MG/ML VIAL IV PRN ×2 (02:21→14:45)
[2019-12-20] MEDS: LEVOTHYROXINE SODIUM 50 MCG TAB PO SCH (06:17)
[2019-12-20 07:13] LABS: BASOPHILS % 0.1 % (0.0-1.0); EOSINOPHILS # (AUTO) 0.1 (0.0-0.4); EOSINOPHILS % 0.6 % (0.0-6.0); HEMOGLOBIN 7.6 g/dL (12.0-16.0); LYMPHOCYTES # (AUTO) 1.2 (1.0-3.2); LYMPHOCYTES % 13.9 % (18.0-39.1); MEAN CORPUSCULAR HEMOGLOBIN 32.9 pg (28-32); MEAN CORPUSCULAR HGB CONC 33.8 g/dL (31-35); MEAN CORPUSCULAR VOLUME 97.4 fL (81-99); MONOCYTES # (AUTO) 0.5 (0.2-0.8); MONOCYTES % 5.7 % (4.4-11.3); NEUTROPHILS # (AUTO) 6.9 (2.1-6.9); NEUTROPHILS % 79.2 % (38.7-80.0); PLATELET COUNT 89 x10e3/uL (140-360); RED BLOOD COUNT 2.31 x10e6/uL (3.6-5.1); RED CELL DISTRIBUTION WIDTH 14.1 % (11.7-14.4)
[2019-12-20 07:15] LABS: HEMATOCRIT 22.5 % (34.2-44.1)
[2019-12-20 07:24] LABS: ANION GAP 9.6 mmol/L (8-16); CALCIUM 7.4 mg/dL (8.4-10.2); CREATININE, SERUM 1.38 mg/dL (0.57-1.11); POTASSIUM 3.6 mmol/L (3.5-5.1)
[2019-12-20] MEDS: PANTOPRAZOLE SOD 40 MG TABEC PO SCH (09:45)
[2019-12-20] MEDS: GLIPIZIDE 5 MG TAB PO SCH (09:45)
[2019-12-20] MEDS: SPIRONOLACTONE 25 MG TAB PO SCH (09:47)
[2019-12-20] MEDS: PROPRANOLOL HCL 40 MG TAB PO SCH ×2 (09:47→16:56)
[2019-12-20] MEDS: LACTULOSE SYRUP 20 GM/30 ML UDC PO SCH ×2 (09:47→16:56)
[2019-12-20] MEDS: INSULIN REGULAR, HUMAN 100 UNIT/1 ML 3ML VIAL SQ SCH ×4 (09:47→20:37)
[2019-12-20] MEDS: FUROSEMIDE 40 MG TAB PO SCH (09:48)
[2019-12-20] MEDS: NICOTINE 21 MG/EA PATCH TOP SCH (09:48)
[2019-12-20 11:20] LABS: PLATELET ESTIMATE SLIGHTLY DECREASED; RBC MORPHOLOGY COMMENT NORMAL
[2019-12-20 11:25] LABS: PLATELET MORPHOLOGY COMMENT NORMAL
--- NOTE | 2019-12-20 21:54 | NUR ---
ASSUMED CARE OF THIS PATIENT THIS AM. THE PATIENT HAS A PIV IN HER RIGHT FA AND IT IS SALINE LOCKED. SHE IS LETHARGIC AND COMPLAINED OF PAIN AND NAUSEA WITH SOME VOMITING TODAY. SHE REFUSED ZOFRAN BUT ASKED FOR KLONIPIN. SHE SLEEPS ALOT AND ASKED FOR PAIN MEDS, TRAMADOL WAS GIVEN X2. SHE IS ON LACTULOSE AND IS HAVING DIARRHEA SEVERAL TIMES TODAY. SHE IS ORIENTED. SHE HAS HAD NO VISITORS, EATING FAIR, AND COMPLIANT WITH HER MEDS.
[2019-12-21] VITALS (10 sets, daily range): BP systolic 90–150; BP diastolic 56–83
[2019-12-21] MEDS: TRAMADOL HCL 50 MG TAB PO PRN ×2 (05:19→06:10)
[2019-12-21] MEDS: LEVOTHYROXINE SODIUM 50 MCG TAB PO SCH (06:10)
[2019-12-21 07:00] LABS: BASOPHILS % 0.2 % (0.0-1.0); EOSINOPHILS % 0.4 % (0.0-6.0); HEMATOCRIT 25.6 % (34.2-44.1); HEMOGLOBIN 8.2 g/dL (12.0-16.0); LYMPHOCYTES # (AUTO) 0.7 (1.0-3.2); LYMPHOCYTES % 13.2 % (18.0-39.1); MEAN CORPUSCULAR HEMOGLOBIN 32.9 pg (28-32); MEAN CORPUSCULAR VOLUME 102.8 fL (81-99); MONOCYTES # (AUTO) 0.6 (0.2-0.8); MONOCYTES % 10.8 % (4.4-11.3); PLATELET COUNT 98 x10e3/uL (140-360); RED BLOOD COUNT 2.49 x10e6/uL (3.6-5.1); RED CELL DISTRIBUTION WIDTH 14.1 % (11.7-14.4)
[2019-12-21 07:07] LABS: INR 1.18; PROTHROMBIN TIME 15.8 seconds (11.9-14.5)
[2019-12-21 07:08] LABS: PARTIAL THROMBOPLASTIN TIME 35.4 seconds (23.8-35.5)
[2019-12-21 07:20] LABS: ANION GAP 13.9 mmol/L (8-16); BILIRUBIN,DIRECT 0.6 mg/dL (0.0-0.5); CALCIUM 7.8 mg/dL (8.4-10.2); CREATININE, SERUM 1.82 mg/dL (0.57-1.11); POTASSIUM 3.9 mmol/L (3.5-5.1)
--- NOTE | 2019-12-21 07:27 | NUR ---
PATIENT IN BED RESTING WITH EYES CLOSED, NO DISTRESS NOTED. LARGE BRUISE TO LEFT UPPER ARM. BED IN LOWER POSITION, CALL LIGHT AT REACH.
[2019-12-21] MEDS: INSULIN REGULAR, HUMAN 100 UNIT/1 ML 3ML VIAL SQ SCH ×4 (07:30→21:00)
[2019-12-21] MEDS: PANTOPRAZOLE SOD 40 MG TABEC PO SCH (08:10)
[2019-12-21] MEDS: GLIPIZIDE 5 MG TAB PO SCH (08:10)
[2019-12-21] MEDS: NICOTINE 21 MG/EA PATCH TOP SCH (09:00)
[2019-12-21] MEDS: PROPRANOLOL HCL 40 MG TAB PO SCH ×2 (09:43→17:00)
[2019-12-21] MEDS ORDERED: CEFTRIAXONE SOD 1 GM/NS 50 ML 50 ML IV ONE (09:45)
[2019-12-21] MEDS ORDERED: ALBUMIN 25% 25GM 100ML 0.25 GM/ML BTL IV ONE (10:00)
--- NOTE | 2019-12-21 10:01 | NUR ---
SPOKE WITH MD REGARDING ABNORMAL LAB RESULT, NEW ORDER RECEIVED.
[2019-12-21] MEDS ORDERED: VANCOMYCIN 1GM/NS 250 ML 250 ML IV ONE (10:30)
[2019-12-21] MEDS ORDERED: ACETAMINOPHEN/CODEINE 300MG - 30MG TAB PO PRN (13:30)
--- NOTE | 2019-12-21 15:47 | NUR ---
MD IN TO SEE PATIENT, NEW ORDERS RECEIVED.
--- NOTE | 2019-12-21 19:10 | NUR ---
BED SIDE SHIFT REPORT GIVEN TO ON COMING NURSE.
--- NOTE | 2019-12-21 19:30 | NUR ---
received report from day nurse. patient is resting in the bed. bed is in the lowest position and call light is within reach. will continue to monitor patient.
[2019-12-22] VITALS (8 sets, daily range): BP systolic 103–141; BP diastolic 57–88
[2019-12-22] MEDS: LEVOTHYROXINE SODIUM 50 MCG TAB PO SCH (05:02)
[2019-12-22 05:55] LABS: BASOPHILS % 0.2 % (0.0-1.0); EOSINOPHILS # (AUTO) 0.1 (0.0-0.4); EOSINOPHILS % 1.8 % (0.0-6.0); HEMATOCRIT 24.7 % (34.2-44.1); LYMPHOCYTES # (AUTO) 0.7 (1.0-3.2); LYMPHOCYTES % 13.8 % (18.0-39.1); MEAN CORPUSCULAR HEMOGLOBIN 32.5 pg (28-32); MEAN CORPUSCULAR HGB CONC 32.4 g/dL (31-35); MEAN CORPUSCULAR VOLUME 100.4 fL (81-99); MONOCYTES # (AUTO) 0.6 (0.2-0.8); MONOCYTES % 12.2 % (4.4-11.3); NEUTROPHILS # (AUTO) 3.6 (2.1-6.9); NEUTROPHILS % 71.6 % (38.7-80.0); PLATELET COUNT 112 x10e3/uL (140-360); RED BLOOD COUNT 2.46 x10e6/uL (3.6-5.1); RED CELL DISTRIBUTION WIDTH 13.8 % (11.7-14.4)
[2019-12-22 06:17] LABS: ANION GAP 12.7 mmol/L (8-16); CALCIUM 7.9 mg/dL (8.4-10.2); CREATININE, SERUM 1.78 mg/dL (0.57-1.11); POTASSIUM 3.7 mmol/L (3.5-5.1)
[2019-12-22 06:33] LABS: ALBUMIN 2.2 g/dL (3.5-5.0); BILIRUBIN,DIRECT 0.7 mg/dL (0.0-0.5)
--- NOTE | 2019-12-22 06:34 | NUR ---
patient is resting in the bed. bed is in the lowest position and call light is within reach. no signs of distress noted.
--- NOTE | 2019-12-22 07:18 | NUR ---
PATIENT IN BED WITH HEAD OF BED ELEVATED TALKING ON THE PHONE, NO DISTRESS NOTED. BED IN LOWER POSITION, CALL LIGHT AT REACH.
[2019-12-22] MEDS: INSULIN REGULAR, HUMAN 100 UNIT/1 ML 3ML VIAL SQ SCH ×4 (07:30→20:51)
[2019-12-22] MEDS: PANTOPRAZOLE SOD 40 MG TABEC PO SCH (08:00)
[2019-12-22] MEDS: GLIPIZIDE 5 MG TAB PO SCH (08:00)
[2019-12-22] MEDS: NICOTINE 21 MG/EA PATCH TOP SCH (09:00)
[2019-12-22] MEDS: PROPRANOLOL HCL 40 MG TAB PO SCH ×2 (09:29→17:00)
[2019-12-22] MEDS: ONDANSETRON HCL INJ 2MG/ML 2ML 2 MG/ML VIAL IV PRN (10:05)
--- NOTE | 2019-12-22 11:28 | NUR ---
PATIENT IN BED RESTING WITH EYES CLOSED, NO DISTRESS NOTED. CALL LIGHT AT REACH.
[2019-12-22] MEDS ORDERED: LACTULOSE SYRUP 20 GM/30 ML UDC PO SCH (14:30)
--- NOTE | 2019-12-22 16:18 | NUR ---
MD IN TO SEE PATIENT, NEW ORDERS RECEIVED.
[2019-12-22] MEDS: RIFAXIMIN 550 MG TABLET PO SCH (17:00)
[2019-12-22] MEDS ORDERED: VANCOMYCIN 1GM/NS 250 ML 250 ML IV SCH ×2 (18:30→20:30)
--- NOTE | 2019-12-22 18:46 | Consultation ---
DATE OF CONSULTATION: REASON FOR CONSULTATION: Fever. HISTORY OF PRESENT ILLNESS: This patient who is a 39-year-old white female, comes in with weakness, generalized fever type of sensation, and swelling. The patient who has history of obesity, diabetes mellitus, neuropathy, hypothyroidism, liver cirrhosis, anemia, and anxiety, comes in with shortness of breath, abdominal distention, nausea, not feeling well. The patient takes her care at [facility]. She was sent to the emergency room. She was admitted. PAST MEDICAL HISTORY: The patient has history of hypertension, hypothyroidism, liver cirrhosis, and anemia. PAST SURGICAL HISTORY: Two C sections. ALLERGIES: NKA. SOCIAL HISTORY: There is no smoking, drug abuse, or alcohol abuse. FAMILY HISTORY: Hypertension. LABORATORY DATA: White count 5.7, hemoglobin 8.0. Her sodium 134, potassium 3.7, and creatinine 1.78. Her COVID-19 was negative. Her blood cultures showing gram-positive coccobacilli. IMAGING DATA: The patient had a chest x-ray, which was no acute finding. PHYSICAL EXAMINATION: GENERAL: She is currently alert, oriented, does not seem in distress. She is running fever 100.2. HEENT: She is not icteric. NECK: Supple. CHEST: Few crackles. HEART: S1, S2. ABDOMEN: Soft and obese. No tenderness. No hepatosplenomegaly. EXTREMITIES: No edema. SKIN: No rash. IMPRESSION AND PLAN: 1. Bacteremia. We will give her Rocephin 1 g q.12 hours and vancomycin 1 g q.24 hours. 2. Liver cirrhosis. We will follow. MD YASMANY Castro/ADDY /[id number]
[2019-12-22] MEDS: CEFTRIAXONE SOD 1 GM/NS 50 ML 50 ML IV SCH (19:01)
[2019-12-22] MEDS ORDERED: LACTULOSE SYRUP 20 GM/30 ML UDC PO ONE (19:15)
--- NOTE | 2019-12-22 20:00 | NUR ---
pt received. pt assessed. no ss of distress noted. no co pain at time. tele in place. attempted to give po medication. pt lethargic and uncooperative. will attempt when more alert. will cont to follow poc. call johnston within reach.
--- NOTE | 2019-12-22 20:00 | NUR ---
pt received. pt assessed. no ss of distress noted. no co pain at time. tele in place. attempted to give po medication. pt lethargic and not uncooperative. will attempt when more alert. will cont to follow poc. call johnston within reach. Addendum: 12/23/19 at 0309 by Patricia Jules RN omit note.
--- NOTE | 2019-12-22 21:00 | NUR ---
pt cont to be lethargic. attempted to give po medications again. still refuses. dr erazo notified of pt condition. stated cont to monitor.
--- NOTE | 2019-12-22 23:39 | NUR ---
pt combative at time. thrashing back and forth in bed. pt is not following simple commands. rapid response initiated. er md at bedside. new orders received.
[2019-12-22] MEDS ORDERED: NALOXONE HCL INJ 0.4 MG/ML AMP ONE (23:42)
[2019-12-22] MEDS ORDERED: LACTULOSE SYRUP 20 GM/30 ML UDC PO STA (23:44)
[2019-12-22] MEDS ORDERED: NALOXONE HCL 2MG/2 ML SYRINGE IV ONE (23:45)
[2019-12-23] VITALS (10 sets, daily range): BP systolic 82–129; BP diastolic 53–103
--- NOTE | 2019-12-23 00:09 | NUR ---
spoke to dr erazo regarding pt and rapid response. new orders received. resort housekeeper notified.
--- NOTE | 2019-12-23 00:22 | NUR ---
pt stated she needed to use bathroom. pt got up and attempted to get her to bedside commode x2 nurse assist. pt became combative. pt walking into wall. x2 nurse with pt walking in room and attempting to get pt back to bed. pt became even more irate. rapid response called. dulce torrse at bedside. new orders given.
[2019-12-23] MEDS ORDERED: DIPHENHYDRAMINE HCL INJ 50 MG/ML VIAL ONE (00:28)
[2019-12-23] MEDS ORDERED: ZIPRASIDONE 20 MG VIAL IM ONE (00:28)
--- NOTE | 2019-12-23 00:49 | NUR ---
notified dr erazo of rapid response. new orders received. dye house wheel operator notified.
--- NOTE | 2019-12-23 00:55 | NUR ---
pt eating x2 pudding. no distress noted. pt compliant at time. report given to imcu nurse. [facility] at bedside with pt.
--- NOTE | 2019-12-23 01:00 | NUR ---
RECIEVED PATIENT SITTING ON THE SIDE OF THE BED WITH A NURSE ASSITING HER WITH EATING. PATIENT STATUS CHANGED TO IMCU WITH A SITTER ORDER, AND MADE 1:1 DUE TO PATIENTS WORSENING ALTERED MENTAL STATUS AND AGGITATION WITH HIGH RISK FOR SELF INJURY. PATIENT COMPLAINING OF BEING COLD AND SLEEPY, WITH 2 PERSON ASSIST, PATIENT ASSISTED BACK TO BED AND COVERED TO AID IN PATIENT COMFORT. VS TAKEN AND NOTED STABLE.PATIENT SLEEPING DEEPLY WITHIN 10 MINUTES. MONITORING PATIENT CONDITION.
--- NOTE | 2019-12-23 02:15 | NUR ---
patient sleeping, arousable to voice commands. vs are stable. episodes of sleep apnea are noted.
--- NOTE | 2019-12-23 03:15 | NUR ---
patient sleeping, rousable to touch stimulis. blood pressure trending low at 82/53 pulse 74.
--- NOTE | 2019-12-23 04:00 | NUR ---
patient sleeping on right side. blood pressure trending lower with systolic of 78. Repositioned patient onto left side with pillow support and blood pressure returned to normal at 115/76. patient maintained sleeping state through change in position.
--- NOTE | 2019-12-23 05:45 | NUR ---
notified physican that patient has been sleeping soundly without any episodes of aggitation or confusion. recieved order to downgrade patient back to med surg from imcu status.
[2019-12-23] MEDS: LEVOTHYROXINE SODIUM 50 MCG TAB PO SCH (06:00)
[2019-12-23] MEDS: CEFTRIAXONE SOD 1 GM/NS 50 ML 50 ML IV SCH (06:05)
[2019-12-23 06:11] LABS: BASOPHILS % 0.6 % (0.0-1.0); EOSINOPHILS # (AUTO) 0.1 (0.0-0.4); EOSINOPHILS % 3.6 % (0.0-6.0); HEMOGLOBIN 7.2 g/dL (12.0-16.0); LYMPHOCYTES # (AUTO) 0.9 (1.0-3.2); LYMPHOCYTES % 26.3 % (18.0-39.1); MEAN CORPUSCULAR HEMOGLOBIN 32.6 pg (28-32); MEAN CORPUSCULAR VOLUME 98.6 fL (81-99); MONOCYTES # (AUTO) 0.4 (0.2-0.8); MONOCYTES % 11.8 % (4.4-11.3); NEUTROPHILS % 57.1 % (38.7-80.0); PLATELET COUNT 121 x10e3/uL (140-360); RED BLOOD COUNT 2.21 x10e6/uL (3.6-5.1); RED CELL DISTRIBUTION WIDTH 13.4 % (11.7-14.4)
[2019-12-23 06:28] LABS: HEMATOCRIT 21.8 % (34.2-44.1)
--- NOTE | 2019-12-23 06:32 | NUR ---
spoke to lab regarding result. primary nurse made aware.
[2019-12-23 07:00] LABS: ANION GAP 11.1 mmol/L (8-16); CALCIUM 7.4 mg/dL (8.4-10.2); CREATININE, SERUM 1.43 mg/dL (0.57-1.11); MAGNESIUM 1.8 MG/DL (1.3-2.1); POTASSIUM 4.1 mmol/L (3.5-5.1)
--- NOTE | 2019-12-23 07:26 | NUR ---
BEDSIDE REPORT RECEIVED. PATIENT IN BED RESTING WITH EYES CLOSED, NO S/S OF DISTRESS OBSERVED. 1:1 SITTER AT BED SIDE. BED IN LOWER POSITION, CALL LIGHT AT REACH.
[2019-12-23] MEDS: INSULIN REGULAR, HUMAN 100 UNIT/1 ML 3ML VIAL SQ SCH ×3 (07:30→16:30)
--- NOTE | 2019-12-23 08:13 | NUR ---
PATIENT OFF UNIT TO RADIOLOGY.
[2019-12-23] MEDS: NICOTINE 21 MG/EA PATCH TOP SCH (09:00)
[2019-12-23] MEDS: PROPRANOLOL HCL 40 MG TAB PO SCH ×2 (09:00→17:17)
[2019-12-23] MEDS ORDERED: ALBUMIN 25% 25GM 100ML 0.25 GM/ML BTL IV ONE (09:30)
[2019-12-23] MEDS ORDERED: FUROSEMIDE 40 MG TAB PO SCH (11:00)
[2019-12-23] MEDS ORDERED: SPIRONOLACTONE 25 MG TAB PO SCH (11:00)
--- NOTE | 2019-12-23 11:14 | Diagnostic Imaging Report ---
PROCEDURE: Ultrasound-guided paracentesis Procedural Personnel Attending physician(s): Soila Toribio MD Pre-procedure diagnosis: Ascites Post-procedure diagnosis: Unchanged Indication: Ascites with pain or pressure symptoms Additional clinical history: None Complications: No immediate complications. IMPRESSION: Ultrasound-guided paracentesis with drainage of 6900 mL of serous fluid. Plan: Resume care by clinical team. PROCEDURE SUMMARY: - Limited abdominal ultrasound - Ultrasound-guided paracentesis - Additional procedure(s): None PROCEDURE DETAILS: Pre-procedure Consent: Informed consent for the procedure including risks, benefits and alternatives was obtained and time-out was performed prior to the procedure. Preparation: The site was prepared and draped using maximal sterile barrier technique including cutaneous antisepsis. Anesthesia/sedation Level of anesthesia/sedation: None Initial abdominal ultrasound Initial abdominal ultrasound was performed. Findings: Large ascites. A safe window for paracentesis was identified. Paracentesis Local anesthesia was administered. The peritoneal cavity was accessed and fluid return confirmed position. Ascites was drained. The catheter was then removed, and a sterile bandage was applied. Paracentesis access technique: Real-time ultrasound guidance. Catheter placed: 5Fr Yueh Post-drainage ultrasound: Small ascites Additional Details Additional description of procedure: None Equipment details: None Specimens removed: Abdominal fluid Estimated blood loss (mL): Minimal (<10cc) Standardized report: [email or web address] Attestation Signer name: Soila Toribio MD I attest that I was present for the entire procedure. I reviewed the stored images and agree with the report as written. Signed by: Soila Toribio MD on 12/23/2019 11:11 AM
[2019-12-23] MEDS ORDERED: ALBUMIN 25% 25GM 100ML 100 ML IV ONE (11:15)
[2019-12-23] MEDS: PANTOPRAZOLE SOD 40 MG TABEC PO SCH (11:15)
[2019-12-23] MEDS: RIFAXIMIN 550 MG TABLET PO SCH ×2 (11:15→17:17)
[2019-12-23] MEDS: GLIPIZIDE 5 MG TAB PO SCH (11:15)
[2019-12-23] MEDS: LACTULOSE SYRUP 20 GM/30 ML UDC PO SCH ×2 (11:16→17:17)
--- NOTE | 2019-12-23 11:16 | NUR ---
PATIENT BACK TO UNIT FROM RADIOLOGY. HAD A PARACENTESIS, 6900 ML OF FLUID REMOVED. PATIENT ALERT AND RESPONSIVE. DENIED PAIN AT THIS TIME. ALL AM MEDICATIONS GIVEN. V/S 99.0-75-20-106/58 AND 100% ON RA. 1:1 SITTER AT BED SIDE.
--- NOTE | 2019-12-23 11:23 | Progress Note ---
DATE: SUBJECTIVE: The patient is seen and evaluated. The patient just came back from paracentesis. Still seems to be a little bit sedated from the procedure. No obvious acute finding. REVIEW OF SYSTEMS: Unable to obtain review of systems secondary to current medical condition. PHYSICAL EXAMINATION: VITAL SIGNS: Temperature is 98.9, pulse 79, respiration 18, and blood pressure 109/70. GENERAL: Comfortable in bed, no acute distress. CV: S1 and S2. CHEST: Equal expansion. Clear to auscultation. No acute distress. ABDOMEN: Soft and obese. Positive bowel sounds. HEENT: Moist. No pallor. No JVD. EXTREMITIES: 1+ edema of feet. MEDICATIONS: Medication list reviewed and from Infectious Disease point of view, the patient is on Rocephin and vancomycin IV. LABORATORY STUDIES: White count of 3.57, hemoglobin 7.2, and platelet 121. Sodium 136, potassium 4.1, and creatinine 1.43, improved since 12/20. MICROBIOLOGY: Blood culture one is negative and another once is gram-positive cocci on Gram stain identification and sensitivity pending. Previous abdominal fluid culture negative for organisms or white count with a culture negative 4 days. IMAGING: No new radiology studies available. ASSESSMENT AND PLAN: 1. Abnormal blood culture/bacteremia-on Rocephin and vancomycin IV. Cultures as above. We will continue to monitor the growth. 2. Hepatic cirrhosis. 3. Acute kidney injury. 4. Anemia. 5. Metabolic encephalopathy. 6. Fever, resolved. 7. Discussed with Dr. Soto in details. Please refer to chart for more information. Dictated by Jose Miguel Lamar PA-C (Al) Jeanine Soto MD /MODL /[id number]
--- NOTE | 2019-12-23 11:27 | NUR ---
ASSESSMENT: Spiritual concern Pt eager for visit from mother. Pt state nhan mother will be visiting this afternoon. Staff sitter at bedside. Pt states her mother wanted her slinger sequins, Shelton, to visit pt however, pt understands she can only have one outside visitor. Intervention: Provided hospitality and information on how to reach staining machine operator, if needed. Outcome: Pt expressed appreciation for visit. Will follow as able. WALLACE GONZALES Funeral Director Spiritual Care Department O: [phone]
[2019-12-23] MEDS ORDERED: ONDANSETRON HCL 4 MG ORAL DISINTEGRATING TAB PO PRN (14:45)
--- NOTE | 2019-12-23 15:51 | NUR ---
PATIENT ASSISTED WITH SHOWER, OUT OF BED TO RECLINING CHAIR TALKING TO HER MOM. CALL LIGHT AT REACH.
[2019-12-23] MEDS ORDERED: LASIX40 MG PO (17:26)
[2019-12-23] MEDS ORDERED: ALDACTONE25 MG PO (17:29)
[2019-12-23] MEDS ORDERED: PROPRANOLOL HCL10 MG PO (17:30)
[2019-12-23] MEDS ORDERED: LACTULOSE20 GM/30 M PO (17:31)
--- NOTE | 2019-12-23 18:00 | NUR ---
PATIENT DISCHARGED HOME. DISCHARGE INSTRUCTIONS, PRESCRIPTIONS, AND FOLLOW UP GIVEN TO PATIENT, SHE VERBALIZED UNDERSTANDING. IV TO RIGHT FOREARM REMOVED WITH TIP INTACT. ALL PERSONAL ITEMS TAKEN WITH PATIENT. LEFT UNIT PER WHEEL CHAIR TO FRONT LOBBY IN STABLE CONDITION.
--- NOTE | 2019-12-24 13:45 | Discharge Summary ---
PRIMARY CARE DOCTOR: None. FINAL DIAGNOSIS: Cirrhosis with tense ascites. SECONDARY DIAGNOSES: 1. Hypertension. 2. Diabetes. 3. Hypothyroidism. 4. Anemia of chronic disease. 5. Anxiety. 6. Rhabdomyolysis. CONSULTANTS: Dr. Soto, Infectious Disease. PROCEDURE/STUDIES PERFORMED: 1. CT shows a large volume ascites. 2. Status post paracentesis x2. HISTORY: Per H and P. HOSPITAL COURSE: The patient was admitted. Paracentesis #1 was done with removal of 6 L. The patient was given IV albumin. However, she had acute kidney injury because of large volume paracentesis. Her creatinine peaked at 1.82, today is 1.43. Today, the patient underwent another 6.9 L of paracentesis. Now, she is doing much better. Of note, the patient had fever, although workup was unremarkable. Blood culture shows diphtheriod, likely contaminant. Her COVID is negative. Empirically, the patient was on antibiotics. I have discussed this case with Dr. Soto. She does not need any more antibiotics. The patient was seen and examined today. It took 35 minutes total to discharge this patient including updating the mother at the bedside. CONDITION ON DISCHARGE: Improved. DISCHARGE MEDICATIONS: Please see medication reconciliation form. MD CHOCO Israel/ADDY /[id number]
== END 2019-12-23 17:52 | disposition home or self-care (01) | DRG 432 ==
LOC: ER 14:42 → ERHOLD 17:12 → MED/SURG3 18:17
PROVIDERS: ADMIT Internal Medicine; ATTEND Internal Medicine
PROC: 0W9G3ZZ Drainage of Peritoneal Cavity, Percutaneous Approach (ICD-10-PCS; principal; 2019-12-18)
PROC: 30233N1 Transfusion of Nonautologous Red Blood Cells into Peripheral Vein, Percutaneous Approach (ICD-10-PCS; 2019-12-18)
PROC: 0W9G3ZZ Drainage of Peritoneal Cavity, Percutaneous Approach (ICD-10-PCS; 2019-12-23)
DX: K70.31 Alcoholic cirrhosis of liver with ascites (principal); G93.41 Metabolic encephalopathy; K76.7 Hepatorenal syndrome; M62.82 Rhabdomyolysis; N17.9 Acute kidney failure, unspecified; E87.2 Acidosis; D64.9 Anemia, unspecified; F10.10 Alcohol abuse, uncomplicated; E03.9 Hypothyroidism, unspecified; Z82.49 Family history of ischemic heart disease and other diseases of the circulatory system; F41.9 Anxiety disorder, unspecified; D63.8 Anemia in other chronic diseases classified elsewhere; E11.42 Type 2 diabetes mellitus with diabetic polyneuropathy; D69.6 Thrombocytopenia, unspecified; Z72.0 Tobacco use; F14.10 Cocaine abuse, uncomplicated; E11.22 Type 2 diabetes mellitus with diabetic chronic kidney disease; I12.9 Hypertensive chronic kidney disease with stage 1 through stage 4 chronic kidney disease, or unspecified chronic kidney disease; N18.3 Chronic kidney disease, stage 3 (moderate); Z79.84 Long term (current) use of oral hypoglycemic drugs; Z11.59 Encounter for screening for other viral diseases
CPT/HCPCS: 36415; 49083; 71045; 71260; 74177; 74470; 76705; 80048; 80053; 80076; 81001; 81025; 82040; 82140; 82550; 82553; 82948; 83690; 83735; 83880; 84443; 84484; 85025; 85610; 85651; 85730; 86140; 86850; 86870; 86880; 86900; 86905; 86920; 86922; 87040; 87070; 87071; 87205; 87635; 88112; 88305; 89051; 93005; 96367; 96372; 96375; 96376; 99001; 99284; C1729; J0696; J1200; J1817; J1940; J2310; J2405; J3370; J3486; J7030; J7050; P9016; P9047; Q9967